=== PATIENT | male | born 1950 | race Caucasian/White ===

== ENCOUNTER → 2017-11-21 | Outpatient (CLI) | payer MEDICARE ==
[~2017-11-21] MED LIST: ACET-461 PO; ASP81CT PO; ASPI81TA45 PO; CHOL200035 PO; GABA-488 PO; INSU100I23 SQ; LISI5TAB14 PO; METO25TA6 PO; NAPR220T76 PO; NITR0.4T SL; PRAV40TA PO
== END ==
LOC: LABNPT 19:00
PROVIDERS: ATTEND Nurse Practitioner Family
DX: E11.00 Type 2 diabetes mellitus with hyperosmolarity without nonketotic hyperglycemic-hyperosmolar coma (NKHHC) (principal)
CPT/HCPCS: 83036

== ENCOUNTER → 2018-05-14 | Outpatient (CLI) | payer MEDICARE ==
[~2018-05-14] MED LIST changes: +ACET-168 PO; +ASPI-983 PO; +CHOL20003 PO; +CLOP75TA28 PO; +INSU100I14 SC; +LISI-556 PO; +METO-333 PO; +NAPR-1033 PO; +PRAV40TA2 PO
== END ==
LOC: WOUNDCARE 09:38
PROVIDERS: ATTEND Nurse Practitioner
DX: E11.621 Type 2 diabetes mellitus with foot ulcer (principal); I25.10 Atherosclerotic heart disease of native coronary artery without angina pectoris; L97.529 Non-pressure chronic ulcer of other part of left foot with unspecified severity; L97.519 Non-pressure chronic ulcer of other part of right foot with unspecified severity; I70.262 Atherosclerosis of native arteries of extremities with gangrene, left leg
CPT/HCPCS: 99213

== ENCOUNTER → 2018-05-21 | Outpatient (CLI) | payer MEDICARE | LOC: WOUNDCARE 10:59 | PROVIDERS: ATTEND Nurse Practitioner | DX: E11.621 Type 2 diabetes mellitus with foot ulcer (principal); I70.262 Atherosclerosis of native arteries of extremities with gangrene, left leg; I25.10 Atherosclerotic heart disease of native coronary artery without angina pectoris; L97.529 Non-pressure chronic ulcer of other part of left foot with unspecified severity; L97.519 Non-pressure chronic ulcer of other part of right foot with unspecified severity; T87.44 Infection of amputation stump, left lower extremity | CPT/HCPCS: 99213 ==

== ENCOUNTER → 2018-05-27 | Outpatient (CLI) | payer MEDICARE | LOC: WOUNDCARE 12:25 | PROVIDERS: ATTEND Surgery | DX: E11.621 Type 2 diabetes mellitus with foot ulcer (principal); I70.245 Atherosclerosis of native arteries of left leg with ulceration of other part of foot; L97.522 Non-pressure chronic ulcer of other part of left foot with fat layer exposed; I70.235 Atherosclerosis of native arteries of right leg with ulceration of other part of foot; L97.512 Non-pressure chronic ulcer of other part of right foot with fat layer exposed; T65.222S Toxic effect of tobacco cigarettes, intentional self-harm, sequela | CPT/HCPCS: 99213 ==

== ENCOUNTER → 2018-06-03 | Outpatient (CLI) | payer MEDICARE | LOC: WOUNDCARE 10:25 | PROVIDERS: ATTEND Surgery | DX: E11.621 Type 2 diabetes mellitus with foot ulcer (principal); I70.245 Atherosclerosis of native arteries of left leg with ulceration of other part of foot; L97.522 Non-pressure chronic ulcer of other part of left foot with fat layer exposed; I70.235 Atherosclerosis of native arteries of right leg with ulceration of other part of foot; L97.512 Non-pressure chronic ulcer of other part of right foot with fat layer exposed; T65.222S Toxic effect of tobacco cigarettes, intentional self-harm, sequela | CPT/HCPCS: 99213 ==

== ENCOUNTER → 2018-06-10 | Outpatient (CLI) | payer MEDICARE | LOC: WOUNDCARE 12:34 | PROVIDERS: ATTEND Surgery | DX: E11.621 Type 2 diabetes mellitus with foot ulcer (principal); I70.235 Atherosclerosis of native arteries of right leg with ulceration of other part of foot; L97.512 Non-pressure chronic ulcer of other part of right foot with fat layer exposed; I70.245 Atherosclerosis of native arteries of left leg with ulceration of other part of foot; L97.522 Non-pressure chronic ulcer of other part of left foot with fat layer exposed; T65.222S Toxic effect of tobacco cigarettes, intentional self-harm, sequela | CPT/HCPCS: 99212 ==

== ENCOUNTER 2018-06-25 08:28 | Inpatient (IN) | payer MEDICARE ==
[~2018-06-25] VITALS: Ht 172.7 cm; Wt 61.7 kg
[2018-06-25] MEDS ORDERED: INSU100V SQ (12:03)
[2018-06-25] MEDS ORDERED: ENOX40DI13 SQ (12:03)
[2018-06-25] MEDS ORDERED: ONDN4T PO (12:03)
[2018-06-25] MEDS ORDERED: NAPR-1033 PO (12:03)
[2018-06-25] MEDS ORDERED: HYDR-3812 PO (12:03)
[2018-06-25] MEDS ORDERED: ACET-2429 PO (12:03)
--- NOTE | 2018-06-25 12:07 | NUR ---
UPDATED MED REC TO THE LIST OF MEDICATIONS ORDERED AT DISCHARGE FROM [facility] AT THIS TIME. Addendum: 06/26/18 at 1406 by YUSEF JONES [facility] REVERTED THE MED REC BACK TO THE HOME MEDICATION LIST REPORTED AT THE PATIENTS ADMISSION IN APRIL TO [facility]. THIS INFORMATION SEEMS TO BE CURRENT WITH WHAT THE [facility] MED [facility] IS SHOWING AT THIS VISIT WELL. NOTE AT THE APRIL ADMISSION THE PATIENT WAS TAKING SOME OF HIS MEDICATION DIFFERENTLY THAN THE PRESCRIPTIONS WERE FILLED. HIS GABAPENTIN WAS LAST FILLED FOR 3 CAPSULES BID HOWEVER HE STATES IT WAS INCREASED TO 3 CAPS TID. HIS METOPROLOL TARTRATE 25MG WAS FILLED BID HOWEVER HE REPORTED ONLY TAKING IT ONCE DAILY AT HS. THE FOLLOWING CHANGES WERE MADE WHEN THE PATIENT DISCHARGED FROM [facility] TO [facility] THAT ARE NOT CURRENTLY REFLECTED ON THE HOME MED REC: START TAKING: TYLENOL 650MG Q6H PRN (CHANGED FROM 1000MG Q6H PRN) LOVENOX 40MG DAILY HYDROCODONE 5-325MG 2 Q4H PRN HUMALOG AC (WAS TAKING NOVOLOG 4 UNITS BID PREVIOUSLY) METOPROLOL 25MG 1/2 TAB BID (WAS TAKING 25 HS PREVIOUSLY) ZOFRAN 4MG Q4H PRN LISINOPRIL 5MG WAS NOT ADDRESSED ON THE DISCHARGE FROM [facility]. ALEVE WAS CONTINUED AT DISCHARGE FROM [facility] HOWEVER NOT REPORTED UPON THE ADMISSION IN APRIL AT [facility].
--- NOTE | 2018-06-25 14:21 | NUR ---
REJI VITALE admitted to room 222, with an admitting diagnosis of BILATERAL AKA, on 06/25/18 from [facility] via PRIVATE VEHICLE, accompanied by FAMILY. REJI VITALE introduced to surroundings, call light, bed controls, phone, TV, temperature control, lights, meal times, smoking policy, visitor policy, side rail policy, bathrooms and showers. Patient Rights given to patient in the handbook. ERJI VITALE verbalizes understanding that [facility] is not responsible for the loss or damage to any personal effects or valuables that are kept in the patient's possession during their hospitalization. The following Patient Care Plans were discussed with the PATIENT: Discharge Planning, PAIN, HIGH RISK: POST OP COMPLICATIONS, IMPAIRED MOBILITY, HIGH RISK: IMPAIRED SKIN INTEGRITY, HIGH RISK: INJURY, and KNOWLEDGE DEFICIT. REJI VITALE verbalizes understanding of Interdisciplinary Patient Education. Patient received Patient Rights Booklet, which includes Privacy Act Statement and Data Collection Information Summary.
--- NOTE | 2018-06-25 14:22 | PM&R H&P / Post Admit Assess ---
History of Present Illness HPI/Chief Complaint CC: Bilateral hgdif-[id number] amputations 06/18/18 Dr Alvarado [facility] HPI: This is a 68-year-old white male clinic patient of Dr. Lyn and Dr. Sykes who presents to the inpatient rehab facility after uncomplicated above the knee amputations by Dr. Alvarado at [facility] on 06/18/18. Multiple attempts with vascular surgery and other modalities failed the severe peripheral vascular disease that had been progressive and unable to be salvaged. Prior to admission he was crawling around at home because of his legs with simply not work. He did have a delirium during the hospital course which was managed conservatively and still has subtle confusion. There is probably a component of vascular dementia involved here among other issues. His daughter arrive with him with the discharge packet for [facility].s at this current time he is ready for a pain pill and rest since he is just arrived from a long hospital course at [facility] in [place]. I reviewed all discharge medications and lab evaluations and have reconciled all meds to continue. Source: patient, family, RN/MD, old records Exam Limitations: other (patient subtle delirium) Date Seen 06/25/18 Time Seen by a Provider: 14:10 Attending Physician Gail Lima Floyd R MD Referring Physician Date of Admission Home Medications & Allergies Home Medications Reviewed patient Home Medication Reconciliation performed by pharmacy medication reconciliations batch room technician and/or nursing. Patients Allergies have been reviewed. Allergies Allergies Coded Allergies No Known Drug Allergies (Pfebxeyzcl17/28/13) Past Ifpttqr-Zxllek-Jwlizy Hx Past Med/Social Hx: Reviewed Nursing Past Med/Soc Hx, Reviewed and Corrections made Patient Social History Marrital Status: single Employed/Student: retired Smoking Status: Former Smoker Recent Hopitalizations: No Seasonal Allergies Seasonal Allergies: No Past Medical History Surgeries: CABG, Orthopedic Respiratory: COPD Currently Using CPAP: No Currently Using BIPAP: No Cardiac: Chronic Edema/Swelling, Coronary Artery Disease, High Cholesterol, Hypertension Neurological: Dementia Musculoskeletal: Arthritis Endocrine: Diabetes, Non-Insulin dep Psychosocial: Depression History of Blood Disorders: No Adverse Reaction to Blood Sharpe: No Family History Cancer 03 FATHER, Onset:60 years & older 03 MOTHER, Onset:60 years & older Prostate cancer 03 FATHER, Onset:60 years & older No Family History of: Abdominal aortic aneurysm Sam's disease Alcoholism Aphasia Cancer of colon Cataract Chest pain Congenital heart disease Congestive heart failure Cystic fibrosis Dementia Dysphagia Family history: Allergy Family history: Alzheimer's disease Family history: Arthritis Family history: Asthma Family history: Breast disease Family history: Cardiovascular disease Family history: Coronary thrombosis Family history: Diabetes mellitus Family history: Gastrointestinal disease Family history: Glaucoma Family history: Hypertension Family history: Osteoporosis Family history: Thyroid disorder Headache Hearing loss Heart disease Hereditary disease History of - anemia History of - disorder History of - respiratory disease History of drug abuse Human immunodeficiency virus (HIV) seropositivity Hypercholesterolemia Infertile Kidney disease Malignant neoplasm of lung Myocardial infarction Parkinson's disease Psychotic disorder Seizure disorder Stroke Tuberculosis Visual impairment Review of Systems Constitutional: see HPI, weakness EENTM: no symptoms reported Respiratory: dyspnea on exertion Cardiovascular: no symptoms reported Gastrointestinal: no symptoms reported Genitourinary: no symptoms reported Musculoskeletal: joint pain, muscle stiffness Skin: see HPI Psychiatric/Neurological: Other (confusion) All Other Systems Reviewed Negative Unless Noted: Yes Physical Exam Exam Vital Signs Vital Signs Date Time Temp Pulse Resp B/P (MAP) Pulse Ox O2 Delivery O2 Flow Rate FiO2 06/25/18 18:04 97.9 87 18 105/61 (76) 95 Room Air Capillary Refill : General Appearance: WD/WN, Chronically ill, Mild Distress HEENT: PERRL/EOMI, Normal ENT Inspection, Pharynx Normal, Moist Mucous Membranes Neck: Full Range of Motion, Normal Inspection, Non Tender, Supple Respiratory: Chest Non Tender, Lungs Clear, Normal Breath Sounds, No Accessory Muscle Use, No Respiratory Distress, Decreased Breath Sounds Cardiovascular: Regular Rate, Rhythm, No Edema, No Gallop, No JVD, No Murmur Gastrointestinal: Normal Bowel Sounds, No Organomegaly, No Pulsatile Mass, Non Tender, Soft Back: Normal Inspection, No CVA Tenderness, No Vertebral Tenderness Extremity: Normal Capillary Refill, Normal Inspection, Normal Range of Motion, Non Tender, No Calf Tenderness, No Pedal Edema, Other (bilateral AKA ) Neurologic/Psychiatric: Alert, Oriented x3, No Motor/Sensory Deficits, Normal Mood/Affect Skin: Normal Color, Warm/Dry Lymphatic: No Adenopathy Results Results/Procedures Labs Patient resulted labs reviewed. Assessment/Plan Assessment and Plan Assess & Plan/Chief Complaint Assessment: bilateral AKA Delirium CAD Hx of CABG HTN HLP COPD Plan: Check labs in am IS Wound care for decubitus ulcers sacrum Dr Sykes consultation for CAD (1) S/P AKA (above knee amputation) bilateral (2) CAD (coronary artery disease) (3) Hx of CABG (4) COPD (chronic obstructive pulmonary disease) (5) Delirium (6) Dementia (7) Anemia (8) Gangrene due to peripheral vascular disease Post Admission Physician Asses Date seen by provider: Jun 25, 2018 Time seen by provider: 14:10 Admisison Dx: (1) S/P AKA (above knee amputation) bilateral Status: Acute The preadmission screen agrees with the post admission assessment that the patient is a good candidate for inpatient rehabilitation. The patient will have a comprehensive program of inpatient rehabilitation with a goal of maximizing level of functional independence prior to discharge home with family. The patient will have PT/OT ninety minutes per day, each discipline, five days a week for gait, strengthening, conditioning, balance, ADLs, any patient/family/caregiver training as necessary. Speech therapy to do cognitive assessment and treat as indicated. Rehabilitation nursing to assist with bowel, bladder, skin, wound care, medication administration, pain management. Ship Keeper to assist with discharge planning, community reentry. SCD's for DVT prophylaxis. He appears to be well motivated to participate in three hours of therapy a day. He should be able to tolerate three hours of therapy a day from a medical standpoint. He should benefit from the three hours of therapy a day. He has a reasonable discharge plan, reasonable discharge rehabilitation goals and a supportive family. He has various comorbidities that need to be closely monitored with medications and treatments adjusted on a daily basis as needed. These include: Barriers to discharge for this patient who had been independent prior to this are for him to be modified independent to supervision for ADLs and mobility skills prior to discharge home with [family], so as to lessen the burden of the caregivers. Risks for this patient include: 1. Fall 2. Fracture 3. DVT 4. Pulmonary embolism 5. Wound infection 6. Skin breakdown 7. Contractures 8. Poorly controlled pain 9. Urinary retention 10. UTI 11. Respiratory infection 12. Aspiration Estimated Length of Stay: 10 days Prognosis: Rehab prognosis appears good for goal of discharge home with family modified independent to supervision for ADLs and mobility skills. General: Alert, Oriented X3 (subtle poor recall), Cooperative, No Acute Distress HEENT: Atraumatic, PERRLA Neck: Supple, No JVD, No Thyromegaly, +2 Carotid Pulse No Bruit, No LAD Lungs: Clear to Auscultation, Normal Air Movement Heart: Regular Rate, Normal S1, Normal S2, No Murmurs Abdomen: Normal Bowel Sounds, Soft, No Tenderness, No Hepatosplenomegaly, No Masses Skin: No Rashes, No Breakdown, No Significant Lesion, Other (AKA staple lines noted) Neuro: Cranial Nerves 3-12 NL Psych/Mental Status: Mental Status NL (suble confusion), Mood NL, Other ( subtle confusion noted) GAIL LIMA DO Jun 25, 2018 14:22
[2018-06-25] MEDS ORDERED: HYDROcodone/APAP 5 MG/325 MG (LORTAB) TAB ONE (14:25)
[2018-06-25] MEDS ORDERED: ACETAMINOPHEN 325 MG TABLET PO PRN (14:45)
[2018-06-25] MEDS ORDERED: ONDANSETRON 4 MG (ZOFRAN) ORAL DISSOLVE TAB PO PRN (14:45)
--- NOTE | 2018-06-25 14:45 | NUR ---
Dr. Simons notified of consult. Addendum: 06/25/18 at 1518 by JASBIR SIDDIQUI RN New order for Aquacel with AG, cover with gauze, and secured with tape to pressure ulcers on bilateral buttock. Dr. Simons will see patient tomorrow.
[2018-06-25 14:55] VITALS: BP 106/60
--- NOTE | 2018-06-25 15:00 | NUR ---
Phyllis Mills, [facility] Staff, called Dr. Robbin Alvarado's office RE: bathing instructions. Ok for patient to shower??? Message left. Will await return call.
--- NOTE | 2018-06-25 15:31 | Physical Therapy Evaluation ---
PT Evaluation-General Medical Diagnosis Admission Date Jun 25, 2018 at 14:21 Medical Diagnosis: bilateral AKA Onset Date: Jun 17, 2018 Therapy Diagnosis Therapy Diagnosis: impaired mobility, strength, endurance, ROM Height/Weight Height (Feet): 5 Height (Inches): 8.00 Weight (Pounds): 142 Weight (Ounces): 1.0 Precautions Precautions/Isolations: Fall Prevention, Standard Precautions, Pressure Ulcer Referral Physician: Gail Soto DO Reason for Referral: Evaluation/Treatment Medical History Pertinent Medical History: CABG, CAD, COPD, HTN, HI, PVD Reviewed History: Yes Social History Home: Single Level Current Living Status: Alone Entry Into Home: Ramp Patient has a "makeshift" ramp that his family has been using to get him into and out of the home, they state they would like a real one built. Family state that patient has been sleeping on the floor for years, this PT recommended that he needs to alter his home to use a real bed and furniture, especially due to his pressure sores. Prior/Core FIM Prior Level of Function Therapy Code Descriptions/Definitions Functional Petroleum Measure: 0=Not Assessed/NA 4=Minimal Assistance 1=Total Assistance 5=Supervision or Setup 2=Maximal Assistance 6=Modified Petroleum 3=Moderate Assistance 7=Complete Petroleum Therapy Quality Codes: 6 Independent with activity with or without an assistive device 5 Patient requires set up or clean up by helper. Patient completes activity by themselves 4 Supervision or touching assist (CGA). Rumely provide cues , steadying assist 3 The helper provides less than half the effort to complete the activity 2 The helper provides more than half the effort to complete the activity 1 Dependent. The helper does all the effort to complete an activity 7 Patient refused to complete or attempt activity 9 The patient did not perform the activity before the current illness or injury 88 Not attempted due to Medical conditions or safety concerns Functional Abilities and Goals: Independent: Patient completed the activities by him/herself, with or without an assistive device, with no assistance from a helper. Needed Some Help: Patient needed partial assistance from another person to complete activities. Dependent: A helper completed the activities for the patient. Unknown: Not Applicable: Bed Mobility: 6 Transfers (B,C,W/C) (FIM): 6 Wheelchair Mobility: 6 Indoor Mobility (Ambulation): Not Applicalbe Prior Devices Use: Manual wheelchair PT Evaluation-Current Subjective Patient in bed pre tx, agrees reluctantly to PT, has 8/10 pain in both residual limbs and pressure sores. Pt/Family Goals to be independent at home Objective Patient Orientation: Person, Place ROM/Strength ROM Lower Extremities Unable to test in LE due to pain. Patient's residual limbs are strait up in the air when he is supine (90 degrees of hip flexion bilaterally). He cannot fully extend at the hip on either side. Strenght Lower Extremities NT due to pain. Neuromuscular (Tone, Coordination, Reflexes) NT Sensory Vision: Functional Hearing: Functional Sensation Lower Extremities Patient has no complaints of numbness on either residual limb. Transfers Therapy Code Descriptions/Definitions Functional Petroleum Measure: 0=Not Assessed/NA 4=Minimal Assistance 1=Total Assistance 5=Supervision or Setup 2=Maximal Assistance 6=Modified Petroleum 3=Moderate Assistance 7=Complete Petroleum Therapy Quality Codes: 6 Independent with activity with or without an assistive device 5 Patient requires set up or clean up by helper. Patient completes activity by themselves 4 Supervision or touching assist (CGA). Rumely provide cues , steadying assist 3 The helper provides less than half the effort to complete the activity 2 The helper provides more than half the effort to complete the activity 1 Dependent. The helper does all the effort to complete an activity 7 Patient refused to complete or attempt activity 9 The patient did not perform the activity before the current illness or injury 88 Not attempted due to Medical conditions or safety concerns Transfers (B, C, W/C) (FIM): 1 Scootin Rollin Roll Left to Right (QC): 4 Supine to/from Sit: 4 bed t/f WC(FIM only if WC use): 1 Sit to Lying (QC): 4 Lying to Sitting/Side of Bed(Q: 4 Chair/Zwd-ol-Huggo Xfer(QC): 1 Car Transfer (QC): 1 Patient was able to perform bed mobility and supine <-> sit with CGA. He could not perform a sliding board transfer or car transfer at this time due to pain from pressure sores. Gait Does the Patient Walk?: No and Walking Goal NOT indicated Wheelchair Training Does the Pt Use a Wheelchair?: Yes Wheelchair (FIM): 1 Type of Wheelchair: Manual Stairs If not tested on admit;explain non-ambulatory Balance Sitting Static: Normal Sitting Dynamic: Fair Treatment Attempted have patient perform exercise to extend hips bilaterally to bring residual limbs down to the bed. He tried a couple of times and then refused to continue. Assessment/Needs Patient has impaired mobility, strength, endurance, ROM, post bilateral AKA. He also has pressure sores on his bottom. He will most likely have to use a nancy lift for now for transfers. Patient has poor motivation. A power chair would be beneficial. Rehab Potential: Guarded PT Short Term Goals Short Term Goals Time Frame: Jul 02, 2018 Transfers (B,C,W/C) (FIM): 4 Wheelchair (FIM): 4 Wheelchair Distance: 150' Wheelchair Level of Assist: 4 PT Group Home Goals Process Machine Operator Goals PT Process Machine Operator Goals Time Frame: Jul 16, 2018 Transfers (B,C,W/C) (FIM): 5 Sit to Lying (QC): 6 Lying-Sitting on Side/Bed(QC): 6 Rollin Roll Left to Right (QC): 6 Chair/Uhx-td-Pkawq Xfer(QC): 4 Car Transfer (QC): 4 Wheelchair (FIM): 6 Distance: 200' Wheelchair Level of Assist: 6 Wheel 50 feet with 2 turns (QC: 6 PT Plan Problem List Problem List: Activity Tolerance, Functional Strength, Safety, Balance, Gait, Transfer, Bed Mobility, ROM Treatment/Plan Treatment Plan: Continue Plan of Care Treatment Plan: Bed Mobility, Concurrent Therapy, Education, Functional Activity Dina, Functional Strength, Group Therapy, Safety, Therapeutic Exercise , Transfers Treatment Duration: Jul 16, 2018 Frequency: At least 5 of 7 days/Wk (IRF) Estimated Hrs Per Day: 1.5 hours per day Patient and/or Family Agrees t: Yes Safety Risks/Education Patient Education: Transfer Techniques, Reviewed Precautions, Correct Positioning, W/C Management, Disease Process, Safety Issues Teaching Recipient: Patient Teaching Methods: Demonstration, Discussion Response to Teaching: Reinforcement Needed Discharge Recommendations Plan Patient will perform bed mobility and transfer training, balance and endurance training, functional strengthening, and education to improve functional mobility and independence at home. Therapy D/C Recommendations: Home w/ Family Support, Snf (TCU/NH) Time/GCodes Time In: 1455 Time Out: 1530 Total Billed Treatment Time: 35 Total Billed Treatment 1 visit EVM 35' AMAURY GONZALES PT Jun 25, 2018 15:31
--- NOTE | 2018-06-25 15:44 | Occupational Therapy Eval ---
OT Evaluation-General/PLF Medical Diagnosis Admission Date Jun 25, 2018 at 14:21 Medical Diagnosis: bilateral AKA Onset Date: Jun 17, 2018 Therapy Diagnosis Therapy Diagnosis: decreased self care skills Height/Weight Height (Feet): 5 Height (Inches): 8.00 Weight (Pounds): 142 Weight (Ounces): 1.0 Precautions Precautions/Isolations: Fall Prevention, Standard Precautions, Pressure Ulcer Referral Physician: Brittany Medical History Pertinent Medical History: CABG, CAD, COPD, HTN, AR, PVD Current History Pt s/p bilateral AKA Reviewed History: Yes Social History Home: Single Level Current Living Status: Children (daughter who works during the day) Entry Into Home: Stairs With Railing (Pt states he has a makeshift ramp, but is looking into getting a ramp installed) ADL-Prior Level of Function Therapy Code Descriptions/Definitions Functional [place] Measure: 0=Not Assessed/NA 4=Minimal Assistance 1=Total Assistance 5=Supervision or Setup 2=Maximal Assistance 6=Modified [place] 3=Moderate Assistance 7=Complete [place] Therapy Quality Codes: 6 Independent with activity with or without an assistive device 5 Patient requires set up or clean up by helper. Patient completes activity by themselves 4 Supervision or touching assist (CGA). [place] provide cues , steadying assist 3 The helper provides less than half the effort to complete the activity 2 The helper provides more than half the effort to complete the activity 1 Dependent. The helper does all the effort to complete an activity 7 Patient refused to complete or attempt activity 9 The patient did not perform the activity before the current illness or injury 88 Not attempted due to Medical conditions or safety concerns Functional Abilities and Goals: Independent: Patient completed the activities by him/herself, with or without an assistive device, with no assistance from a helper. Needed Some Help: Patient needed partial assistance from another person to complete activities. Dependent: A helper completed the activities for the patient. Unknown: Not Applicable: ADL PLOF Comments Pt states he has been sleeping on the floor and crawling around the house prior to surgery. Pt states he was able to get up onto toilet without assist. Self Care: Needed Some Help DME/Equipment: Grab Bars, Tub/Shower OT Current Status Subjective Pt arrived from outside hospital, states "Can I start therapy tomorrow?" Education provided regarding role of therapy and rehab process. Pt states understanding of education and reluctantly agrees to attempt therapy with encouragement. Pt reports 7/10 pain in LE. RN present and provides pain medication. Mental Status/Objective Patient Orientation: Person, Place Current Glasses/Contacts: No Hearing Aids: No Dentures/Partials: Yes Hand Dominance: Right Upper Extremity ROM Grossly WFL Upper Extremity Coordination Intact Upper Extremity Strength Grossly WFL. ADL-Treatment ADL-Current Pt states he completed therapy at hospital prior to coming to ARU. Pt reports fatigue and requests to transfer to bed. Pt states he has not been using slide board, but has been able to transfer without it by placing w/c next to bed and scooting using bilateral UE. Pt able to position w/c next to bed. Max assist required to transfer to EOB. Sit to supine with min assist for safety. Pt requires assist to scoot to HOB. Pt participated in UE assessment while sitting up in bed with HOB raised. Pt positioned in bed with needs met after session. Education OT Patient Education: Rehab process Teaching Recipient: Patient Teaching Methods: Discussion Response to Teaching: Verbalize Understanding, Reinforcement Needed OT Short Term Goals Short Term Goals Time Frame: Jul 02, 2018 Bathing(FIM): 4 Lower Body Dressing(FIM): 3 Toileting(FIM): 4 Additional Short Term Goals: 1-Demonstrate ADL Tasks, 2-Verbalize Understanding , 3-ImproveStrength/Dina 1=Demonstrate adherence to instructed precautions during ADL tasks. 2=Patient will verbalize/demonstrate understanding of assistive devices/ modifications for ADL. 3=Patient will improve strength/tolerance for activity to enable patient to perform ADL's. OT Jelly Maker Goals Halfway Goals Time Frame: Jul 16, 2018 Eating (FIM): 6 Eating (QC): 6 Groomin Oral Hygiene (QC): 6 Bathing(FIM): 5 Shower/Bathe Self (QC): 4 Upper Body Dressing(FIM): 6 Upper Body Dressing (QC): 6 Lower Body Dressing(FIM): 5 Lower Body Dressing (QC): 5 On/Off Footwear (QC): 88 Toileting(FIM): 5 Toileting Hygiene (QC): 5 Toilet/Commode Transfer(FIM): 5 Toilet/Commode Transfer (QC): 5 Additional Goals: 1-Demonstrate ADL Tasks, 2-Verbalize Understanding, 3- ImproveStrength/Dina 1=Demonstrate adherence to instructed precautions during ADL tasks. 2=Patient will verbalize/demonstrate understanding of assistive devices/ modifications for ADL. 3=Patient will improve strength/tolerance for activity to enable patient to perform ADL's. OT Education/Plan Problem List/Assessment Assessment: Decreased Activ Tolerance, Decreased UE Strength, Dependent Transfers, Impaired I ADL's, Impaired Self-Care Skills Pt admitted to ARU following bilateral AKA. Pt to benefit from skilled OT intervention for ADL training, transfers, strengthening, and safety education to increase level of independence and allow safe discharge plan. Discharge Recommendations Plan/Recommendations: Continue POC Treatment Plan/Plan of Care Treatment,Training & Education: Yes Patient would benefit from OT for education, treatment and training to promote independence in ADL's, mobility, safety and/or upper extremity function for ADL' s. Plan of Care: ADL Retraining, Functional Mobility, Group Exercise/Act as Ind, UE Funct Exercise/Act Treatment Duration: Jul 16, 2018 Frequency: Modified Program (IRF) Estimated Hrs Per Day: 1.5 hours per day Agreement: Yes Rehab Potential: Fair Time/GCodes Start Time: 14:15 Stop Time: 14:55 Total Time Billed (hr/min): 40 Billed Treatment Time 1 visit, EVM(30minutes), FA(10minutes) DRE MELÉNDEZ OT Jun 25, 2018 15:44
[2018-06-25] MEDS: inSUlin ASPART (NovoLOG) 1 UNIT/0.01 ML (CHARGE PER UNIT) SC SCH ×2 (16:35→21:37)
[2018-06-25] MEDS: meTOprolol TARTRATE 25 MG (LOPRESSOR) TABLET PO SCH (18:00)
[2018-06-25 18:04] VITALS: BP 105/61
[2018-06-25] MEDS ORDERED: FLU QUADRIvalent (5+ YOA) 2018-2019 (AFLURIA) 0.5 ML IM ONE (19:15)
--- NOTE | 2018-06-25 19:24 | NUR ---
Minimal amount of serosanguineous drainage noted from right AKA. In report, Dante REIS stated that this started today (06/25/18) and that Surgeon "is aware and is not worried about it". Dr. Soto also aware.
--- NOTE | 2018-06-25 19:33 | NUR ---
Never rec'd a call back from Dr. Alvarado's office. Will pass on in report to try again tomorrow.
--- NOTE | 2018-06-25 19:53 | NUR ---
Per Dr. Soto... change consult from Dr. Thakur to Dr. Sykes. Dr. Sykes already notified by Dr. Soto and he will see patient tomorrow.
[2018-06-25] MEDS: HYDROcodone/APAP 5 MG/325 MG (LORTAB) TAB PO PRN (20:39)
[2018-06-25] MEDS: CLOPIDOGREL 75 MG (PLAVIX) TABLET PO SCH (20:39)
[2018-06-25] MEDS: GABAPENTIN 300 MG (NEURONTIN) CAP PO SCH (20:39)
[2018-06-25] MEDS: GABAPENTIN 600 MG (NEURONTIN) TAB PO SCH (20:39)
[2018-06-25] MEDS: SIMvastatin 20 MG (ZOCOR) TAB PO SCH (20:39)
[2018-06-26] MEDS: HYDROcodone/APAP 5 MG/325 MG (LORTAB) TAB PO PRN ×4 (03:50→21:03)
[2018-06-26] MEDS: inSUlin ASPART (NovoLOG) 1 UNIT/0.01 ML (CHARGE PER UNIT) SC SCH ×4 (05:14→20:57)
[2018-06-26 06:00] VITALS: BP 104/55
[2018-06-26 06:05] LABS: BASOPHILS % (AUTO) 0 % (0-10); EOSINOPHILS # (AUTO) 0.3 10^3/uL (0.0-0.3); EOSINOPHILS % (AUTO) 3 % (0-10); HEMATOCRIT 27 % (40-54); HEMOGLOBIN 8.5 G/DL (13.3-17.7); LYMPHOCYTES # (AUTO) 2.2 X 10^3 (1.0-4.0); LYMPHOCYTES % (AUTO) 22 % (12-44); MEAN CORPUSCULAR HEMOGLOBIN 29 PG (25-34); MEAN CORPUSCULAR HGB CONC 31 G/DL (32-36); MEAN CORPUSCULAR VOLUME 94 FL (80-99); MEAN PLATELET VOLUME 10.7 FL (7.4-10.4); MONOCYTES % (AUTO) 10 % (0-12); NEUTROPHILS # (AUTO) 6.6 X 10^3 (1.8-7.8); NEUTROPHILS % (AUTO) 65 % (42-75); PLATELET COUNT 245 10^3/uL (130-400); RED CELL DISTRIBUTION WIDTH 15.4 % (10.0-14.5); WHITE BLOOD COUNT 10.2 10^3/uL (4.3-11.0)
[2018-06-26] MEDS: meTOprolol TARTRATE 25 MG (LOPRESSOR) TABLET PO SCH ×2 (06:21→18:22)
[2018-06-26 06:35] LABS: ALANINE AMINOTRANSFERASE 36 U/L (0-55); ALBUMIN 2.6 GM/DL (3.2-4.5); ALKALINE PHOSPHATASE 76 U/L (40-136); BILIRUBIN,TOTAL 0.3 MG/DL (0.1-1.0); BUN/CREATININE RATIO 15; CALCIUM 8.4 MG/DL (8.5-10.1); CARBON DIOXIDE 24 MMOL/L (21-32); CHLORIDE 105 MMOL/L (98-107); CREATININE SERUM 0.54 MG/DL (0.60-1.30); GFR ESTIMATED > 60; GLUCOSE 135 MG/DL (70-105); POTASSIUM 3.9 MMOL/L (3.6-5.0); SODIUM 135 MMOL/L (135-145); TOTAL PROTEIN 5.7 GM/DL (6.4-8.2)
--- NOTE | 2018-06-26 08:00 | NUR ---
MESSAGE LEFT WITH DR. BOWMAN'S NURSE RE: IF PATIENT CAN SHOWER.
[2018-06-26] MEDS: GABAPENTIN 300 MG (NEURONTIN) CAP PO SCH ×3 (09:03→20:58)
[2018-06-26] MEDS: GABAPENTIN 600 MG (NEURONTIN) TAB PO SCH ×3 (09:04→20:58)
[2018-06-26] MEDS: ASPIRIN E.C. 81 MG (ECOTRIN) TAB PO SCH (09:04)
[2018-06-26] MEDS: ENOXAPARIN 40 MG/0.4 ML (LOVENOX) SYR SC SCH (09:06)
--- NOTE | 2018-06-26 09:07 | PM&R Progress Note ---
Subjective HPI/CC On Admission Date Seen by Provider: Jun 26, 2018 Time Seen by Provider: 08:30 CC: Bilateral [id number] amputations 06/18/18 Dr Alvarado [facility] HPI: This is a 68-year-old white male clinic patient of Dr. Lyn and Dr. Sykes who presents to the inpatient rehab facility after uncomplicated above the knee amputations by Dr. Alvarado at [facility] on 06/18/18. Multiple attempts with vascular surgery and other modalities failed the severe peripheral vascular disease that had been progressive and unable to be salvaged. Prior to admission he was crawling around at home because of his legs with simply not work. He did have a delirium during the hospital course which was managed conservatively and still has subtle confusion. There is probably a component of vascular dementia involved here among other issues. His daughter arrive with him with the discharge packet for [facility].s at this current time he is ready for a pain pill and rest since he is just arrived from a long hospital course at [facility] in [place]. I reviewed all discharge medications and lab evaluations and have reconciled all meds to continue. Subjective/Events-last exam Pt doing very well today. Wound care is consulted for decubitus ulcers. Dr. Thakur has been consulted. Bowel movement this morning. Elmo are intact with subtle drainage but will monitor that closely. Will remove grzegorz this weekend if healing well. More cooperative today. Checking iron levels since Hgb is slightly low. Lortab provides good pain control. Dr. Simons will provide wound care. Power chair evaluation to see if we can get that for him. PT and OT reports dependent in transfers and we will inquire more about placement at discharge. Review of Systems General: Fatigue Objective Exam Vital Signs Vital Signs Date Time Temp Pulse Resp B/P (MAP) Pulse Ox O2 Delivery O2 Flow Rate FiO2 06/26/18 17:24 99.0 87 20 103/55 (71) 96 Room Air Capillary Refill : General Appearance: No Apparent Distress, WD/WN, Chronically ill, Mild Distress HEENT: PERRL/EOMI, Normal ENT Inspection, Pharynx Normal, Moist Mucous Membranes Neck: Full Range of Motion, Normal Inspection, Non Tender, Supple Respiratory: Chest Non Tender, Lungs Clear, Normal Breath Sounds, No Accessory Muscle Use, No Respiratory Distress, Decreased Breath Sounds Cardiovascular: Regular Rate, Rhythm, No Edema, No Gallop, No JVD, No Murmur Gastrointestinal: Normal Bowel Sounds, No Organomegaly, No Pulsatile Mass, Non Tender, Soft Back: Normal Inspection, No CVA Tenderness, No Vertebral Tenderness Extremity: Normal Capillary Refill, Normal Inspection, Normal Range of Motion, Non Tender, No Calf Tenderness, No Pedal Edema, Other (bilateral AKA ) Neurologic/Psychiatric: Alert, Oriented x3, No Motor/Sensory Deficits, Normal Mood/Affect Skin: Normal Color, Warm/Dry Lymphatic: No Adenopathy Results/Procedures Lab Laboratory Tests 06/26/18 05:45 Patient resulted labs reviewed. Assessment/Plan Assessment and Plan Assess & Plan/Chief Complaint Assessment: bilateral AKA Delirium CAD Hx of CABG HTN HLP COPD Plan: Check labs prn Await iron level IS Wound care for decubitus ulcers sacrum Dr Sykes consultation for CAD Staple removal this weekend if healing surgical sites (1) S/P AKA (above knee amputation) bilateral (2) Hx of CABG (3) Delirium (4) Dementia (5) CAD (coronary artery disease) (6) Anemia (7) COPD (chronic obstructive pulmonary disease) Clinical Quality Measures DVT/VTE Risk/Contraindication: Risk Factor Score Per Nursin RFS Level Per Nursing on Admit: 4+=Very High KARISSA LIMA DO Jun 26, 2018 09:07
--- NOTE | 2018-06-26 10:20 | Occupational Ther Daily Note ---
OT Current Status-Daily Note Subjective Pt alert, lying in bed. Pt agrees to therapy. Pt c/o pain in buttocks wound area and hip flexors. Mental Status/Objective Patient Orientation: Person, Place, Time, Situation Therapy Code Descriptions/Definitions Functional [place] Measure: 0=Not Assessed/NA 4=Minimal Assistance 1=Total Assistance 5=Supervision or Setup 2=Maximal Assistance 6=Modified [place] 3=Moderate Assistance 7=Complete [place] ADL-Treatment Co-treat with PT for skilled instruction and care due decreased activity tolerance, mobility and increased pain. PT worked on bed mobility, LE and core strengthening. OT worked on ADLs, and UE strengthening. When pt moved increased his pain. Pt anxious about what he is to do in therapy. Pt had difficulty following directions with exercises. Increased time to complete tasks due to pain and decreased mobility. MHP to L hip flexor to increase ROM and decrease pain. After therapy, pt lying in bed with call light/phone in reach. All needs met in room. Therapy Code Descriptions/Definitions Functional [place] Measure: 0=Not Assessed/NA 4=Minimal Assistance 1=Total Assistance 5=Supervision or Setup 2=Maximal Assistance 6=Modified [place] 3=Moderate Assistance 7=Complete [place] Therapy Quality Codes: 6 Independent with activity with or without an assistive device 5 Patient requires set up or clean up by helper. Patient completes activity by themselves 4 Supervision or touching assist (CGA). [place] provide cues , steadying assist 3 The helper provides less than half the effort to complete the activity 2 The helper provides more than half the effort to complete the activity 1 Dependent. The helper does all the effort to complete an activity 7 Patient refused to complete or attempt activity 9 The patient did not perform the activity before the current illness or injury 88 Not attempted due to Medical conditions or safety concerns Bathing (FIM): 4 (After set up for bed bath, pt able to reach all areas except buttocks. Pt has wound on coccyx area causing pain and requires extra care with area.) Bathing Location: L Arm, R Arm, L Upper Leg, R Upper Leg, Chest, Abdomen, Perineal Area Shower/Bathe Self (QC): 3 Upper Body (FIM): 5 (After set up, pt able to don/doff clothing.) Upper Body Dressing (QC): 5 Lower Body Dressing (FIM): 2 (Due to increased pain with movement, pt requires max A to complete) Lower Body Dressing (QC): 2 OT Short Term Goals Short Term Goals Time Frame: Jul 02, 2018 Bathing(FIM): 4 Lower Body Dressing(FIM): 3 Toileting(FIM): 4 Transfers (B,C,W/C) (FIM): 4 Additional Short Term Goals: 1-Demonstrate ADL Tasks, 2-Verbalize Understanding , 3-ImproveStrength/Dina 1=Demonstrate adherence to instructed precautions during ADL tasks. 2=Patient will verbalize/demonstrate understanding of assistive devices/ modifications for ADL. 3=Patient will improve strength/tolerance for activity to enable patient to perform ADL's. OT Nursing Home Goals Nursing Home Goals Time Frame: Jul 16, 2018 Eating (FIM): 6 Eating (QC): 6 Groomin Oral Hygiene (QC): 6 Bathing(FIM): 5 Shower/Bathe Self (QC): 4 Upper Body Dressing(FIM): 6 Upper Body Dressing (QC): 6 Lower Body Dressing(FIM): 5 Lower Body Dressing (QC): 5 Toileting(FIM): 5 Toileting Hygiene (QC): 5 Toilet/Commode Transfer(FIM): 5 Toilet/Commode Transfer (QC): 5 Additional Goals: 1-Demonstrate ADL Tasks, 2-Verbalize Understanding, 3- ImproveStrength/Dina 1=Demonstrate adherence to instructed precautions during ADL tasks. 2=Patient will verbalize/demonstrate understanding of assistive devices/ modifications for ADL. 3=Patient will improve strength/tolerance for activity to enable patient to perform ADL's. OT Education/Plan Problem List/Assessment Pt admitted to ARU following bilateral AKA. Pt to benefit from skilled OT intervention for ADL training, transfers, strengthening, and safety education to increase level of independence and allow safe discharge plan. Discharge Recommendations Plan/Recommendations: Continue POC Treatment Plan/Plan of Care Patient would benefit from OT for education, treatment and training to promote independence in ADL's, mobility, safety and/or upper extremity function for ADL' s. Plan of Care: ADL Retraining, Functional Mobility, Group Exercise/Act as Ind, UE Funct Exercise/Act Treatment Duration: Jul 16, 2018 Frequency: Modified Program (IRF) Estimated Hrs Per Day: 1.5 hours per day Agreement: Yes Rehab Potential: Fair Time/GCodes Start Time: 09:00 Stop Time: 10:00 Total Time Billed (hr/min): 60 Billed Treatment Time 1 visit-ADL 4 (60 min) Co-treat with PT 60 min EMMA CASEY Jun 26, 2018 10:20
--- NOTE | 2018-06-26 10:40 | Consultation-Cardiology ---
HPI-Cardiology Cardiology Consultation Date of Consultation 06/26/18 Date of Admission Time Seen by Provider: 08:50 Indication: CAD, PVD HPI Patient is a 68 y/o male with history of CAD, PVD, CHF, HTN. Currently receiving therapy in IRF after undergoing bilat AKA last month secondary to severe PVD. Denies any pain in legs at this time. Denies chest pain, dyspnea, dizziness or lightheadedness. Currently no complaints at this time. 68 years old gentleman with history of coronary artery disease, peripheral arterial disease, hypertension, underwent bilateral AKA secondary to extensive inoperable peripheral arterial disease. Currently receiving physical therapy. Denied any chest pain or palpitation. No syncope or near syncopal episodes. No claudication, no fever or chills. I was called for cardiac vascular management Home Medications & Allergies Allergies: Coded Allergies: No Known Drug Allergies (Unverified , 04/19/13) Home Medication List Reviewed: Yes QNP-Mauyds-Bvqabi Hx Patient Social History Marital Status: single Employed/Student: retired Smoking Status: Former Smoker Recent Foreign Travel: No Recent Infectious Disease Expo: No Recent Hopitalizations: No Immunizations Up To Date Date of Pneumonia Vaccine: Apr 23, 2015 Past Medical History PVD, CAD, HTN, HLP, CHF Family Medical History Significant Family History: No Pertinent Family Hx Family History: Cancer 03 FATHER, Onset:60 years & older 03 MOTHER, Onset:60 years & older Prostate cancer 03 FATHER, Onset:60 years & older No Family History of: Abdominal aortic aneurysm Sam's disease Alcoholism Aphasia Cancer of colon Cataract Chest pain Congenital heart disease Congestive heart failure Cystic fibrosis Dementia Dysphagia Family history: Allergy Family history: Alzheimer's disease Family history: Arthritis Family history: Asthma Family history: Breast disease Family history: Cardiovascular disease Family history: Coronary thrombosis Family history: Diabetes mellitus Family history: Gastrointestinal disease Family history: Glaucoma Family history: Hypertension Family history: Osteoporosis Family history: Thyroid disorder Headache Hearing loss Heart disease Hereditary disease History of - anemia History of - disorder History of - respiratory disease History of drug abuse Human immunodeficiency virus (HIV) seropositivity Hypercholesterolemia Infertile Kidney disease Malignant neoplasm of lung Myocardial infarction Parkinson's disease Psychotic disorder Seizure disorder Stroke Tuberculosis Visual impairment Review of Systems Constitutional: No chills, No diaphoresis, No dizziness, No fever, No malaise EENTM: No ear pain, No blurred vision, No double vision, No epistaxis, No nose pain Respiratory: No cough, No dyspnea on exertion Cardiovascular: No chest pain, No edema, No palpitations Gastrointestinal: No abdominal pain, No constipation Genitourinary: No dysuria, No frequency, No hematuria Musculoskeletal: No back pain Skin: No change in color, No lesions, No rash Psychiatric/Neurological: Denies Headache, Denies Numbness Reviewed Test Results Reviewed Test Results Lab Laboratory Tests 06/26/18 05:13: Glucometer 141H 06/26/18 05:45: White Blood Count 10.2, Red Blood Count 2.92L, Hemoglobin 8.5L, Hematocrit 27L, Mean Corpuscular Volume 94, Mean Corpuscular Hemoglobin 29, Mean Corpuscular Hemoglobin Concent 31L, Red Cell Distribution Width 15.4H, Platelet Count 245, Mean Platelet Volume 10.7H, Neutrophils (%) (Auto) 65, Lymphocytes (%) (Auto) 22 , Monocytes (%) (Auto) 10, Eosinophils (%) (Auto) 3, Basophils (%) (Auto) 0, Neutrophils # (Auto) 6.6, Lymphocytes # (Auto) 2.2, Monocytes # (Auto) 1.0, Eosinophils # (Auto) 0.3, Basophils # (Auto) 0.0, Sodium Level 135, Potassium Level 3.9, Chloride Level 105, Carbon Dioxide Level 24, Anion Gap 6, Blood Urea Nitrogen 8, Creatinine 0.54L, Estimat Glomerular Filtration Rate > 60, BUN/ Creatinine Ratio 15, Glucose Level 135H, Calcium Level 8.4L, Corrected Calcium 9.5, Total Bilirubin 0.3, Aspartate Amino Transf (AST/SGOT) 38H, Alanine Aminotransferase (ALT/SGPT) 36, Alkaline Phosphatase 76, Total Protein 5.7L, Albumin 2.6L Physical Exam Vital Signs Vital Signs - First Documented 06/25/18 14:55 Temp 98.6 Pulse 99 Resp 18 B/P (MAP) 106/60 (75) Pulse Ox 94 O2 Delivery Room Air Capillary Refill : Height, Weight, BMI Height: 5'8.00" Weight: 142lbs. 1.0oz. 64.061977aq; 21.6 BMI Method:Stated General Appearance: No Apparent Distress, WD/WN HEENT: TMs Normal, Pharynx Normal Neck: Full Range of Motion, Normal Inspection, Non Tender, Supple Respiratory: Chest Non Tender, Lungs Clear, Normal Breath Sounds, No Accessory Muscle Use, No Respiratory Distress Cardiovascular: Regular Rate, Rhythm, No Gallop, No JVD, No Murmur Gastrointestinal: No Pulsatile Mass, Non Tender, Soft Rectal: Deferred Back: No CVA Tenderness Extremity: Other (bilat AKA, stable in place on stumps bilat. No erythema or drainage) A/P-Cardiology Admission Diagnosis PVD CAD CHF HTN Assessment/Plan Peripheral arterial disease, history of bilat foot gangrene.Multiple interventions in the past, had bypass surgery right femoropopliteal and also femorofemoral bypass in October [address] Hutchinson, severe peripheral arterial disease by [facility]. Underwent multiple angiogram, had aortic stent placed by Dr. Bobo, failed percutaneous intervention of the lower extremity to establish flow, had extensive gangrene. Appeared to be inoperable, readmitted to [facility] and underwent bilateral AKA. Postoperatively he was confused. Currently better, continue on current medications and monitor Coronary artery disease history of CABG done on 04/22/[address] Olmos using DEL ANGEL to LAD, VG to OM1, VG to Acute marginal branch and PDA of RCA, continue with medical therapy Congestive heart failure, chronic compensated left ventricular systolic dysfunction, ischemic cardiomyopathy, ejection fraction 45-50 percent, mild mitral regurgitation, estimated pulmonary artery pressure of 35 mmHg, ischemic cardiomyopathy, continue on current medication and monitor Hypertension, continue on current medications and continue to monitor blood pressure Hyperlipidemia, monitor lipids Diabetes mellitus,management per PCP Tobaccoism, educated on smoking cessation. Mild carotid artery stenosis last checkup was done in July 2014 Thank you for allowing us to participate in the management of Mr. Lane. This is Marlen Wooten PA-C, as a scribe for Dr. Thakur. This is Dr. Thakur, I have seen and evaluated the patient with Marlen, as I mentioned above he is a 68 years old gentleman with extensive cardiac vascular history, underwent bilateral AKA, failed multiple attempts for intervention of the lower extremity in [place], currently receiving physical therapy. On examination lungs were clear to auscultation bilaterally, heart is regular, S3 is present, systolic murmur is present. He is maintained on aspirin and Plavix. Continue on current medication, monitor blood pressure, monitor lipids. I agree with the current scribed note, I made few modifications using Italic Font Clinical Quality Measures DVT/VTE Risk/Contraindication: Risk Factor Score Per Nursin RFS Level Per Nursing on Admit: 4+=Very High MARLEN ESQUIVEL Jun 26, 2018 10:40 am HARLEY THAKUR MD Jun 26, 2018 1:43 pm
--- NOTE | 2018-06-26 10:43 | Physical Therapy Daily Note ---
PT Daily Note-Current Subjective Pt laying R sidelying upon arrival. Pt agrees to PT. Pain Numeric Pain Scale: 6 Location: Incisional Location Body Site: Thigh Pain Description: Stabbing, Burning, Sharp Mental Status Patient Orientation: Person, Place, Situation Transfers Therapy Code Descriptions/Definitions Functional [place] Measure: 0=Not Assessed/NA 4=Minimal Assistance 1=Total Assistance 5=Supervision or Setup 2=Maximal Assistance 6=Modified [place] 3=Moderate Assistance 7=Complete [place] Therapy Quality Codes: 6 Independent with activity with or without an assistive device 5 Patient requires set up or clean up by helper. Patient completes activity by themselves 4 Supervision or touching assist (CGA). [place] provide cues , steadying assist 3 The helper provides less than half the effort to complete the activity 2 The helper provides more than half the effort to complete the activity 1 Dependent. The helper does all the effort to complete an activity 7 Patient refused to complete or attempt activity 9 The patient did not perform the activity before the current illness or injury 88 Not attempted due to Medical conditions or safety concerns Rollin Roll Left to Right (QC): 4 Exercises Supine Ex: Rolling, Glut sets Treatments Co-treat with PT for skilled instruction and care due decreased activity tolerance, mobility and increased pain. PT worked on bed mobility, LE and core strengthening. OT worked on ADLs, and UE strengthening. When pt moved increased his pain. Pt anxious about what he is to do in therapy. MHP is used for pain relief, increase blood flow & weight to aid in stretching tight hip flexors. Pt resting at end of tx with all needs met. Assessment Current Status: Fair Progress Pt is limited by pain and contractures of B hips. PT Short Term Goals Short Term Goals Time Frame: Jul 02, 2018 Transfers (B,C,W/C) (FIM): 4 Wheelchair (FIM): 4 Wheelchair Distance: 150' Wheelchair Level of Assist: 4 PT Correction Goals Environmental Emergencies Planner Goals PT Correction Goals Time Frame: Jul 16, 2018 Transfers (B,C,W/C) (FIM): 5 Sit to Lying (QC): 6 Lying-Sitting on Side/Bed(QC): 6 Rollin Roll Left to Right (QC): 6 Chair/Jos-we-Vdysv Xfer(QC): 4 Car Transfer (QC): 4 Wheelchair (FIM): 6 Distance: 200' Wheelchair Level of Assist: 6 Wheel 50 feet with 2 turns (QC: 6 PT Plan Problem List Problem List: Activity Tolerance, Functional Strength, Safety, Balance, Transfer, Bed Mobility, ROM Treatment/Plan Treatment Plan: Continue Plan of Care Treatment Plan: Bed Mobility, Concurrent Therapy, Education, Functional Activity Dina, Functional Strength, Group Therapy, Safety, Therapeutic Exercise , Transfers Treatment Duration: Jul 16, 2018 Frequency: At least 5 of 7 days/Wk (IRF) Estimated Hrs Per Day: 1.5 hours per day Patient and/or Family Agrees t: Yes Safety Risks/Education Patient Education: Transfer Techniques, Correct Positioning, Safety Issues Teaching Recipient: Patient, Family Teaching Methods: Discussion Response to Teaching: Verbalize Understanding Time/GCodes Time In: 900 Time Out: 1000 Total Billed Treatment Time: 60 Total Billed Treatment 1, FA x4 (60m) Co-treat for 60m G Codes Necessary: LJ Ashford FUNDRAISING ASSISTANT Jun 26, 2018 10:43
--- NOTE | 2018-06-26 11:01 | ST Cognitive Linguistic Eval ---
Speech Evaluation-General Medical Diagnosis bilateral AKA Onset Date: Jun 17, 2018 Therapy Diagnosis Therapy Diagnosis: Cognitive-communication Precautions Precautions/Isolations: Standard Precautions Medical History Pertinent Medical History: CABG, CAD, COPD, HTN, [place], PVD Reviewed History: Yes Social History Current Living Status: Children (daughter who works during the day) Speech PLF-Current Status Prior Level of Function Patient was able to attend to most of his daily needs with support from his family. His in March 2018. Subjective Patient was pleasant and attentive during the evaluation process. Language Eval: Auditory Comprehends Simple Yes/No Ques: Functional Indent/Objects Multiple Weiner: Functional Ident/Pics in Multiple Weiner: Functional Follows 1-Step Commands: Functional Follows Complex Directions: Functional Follows General Conversations: Functional Language Eval: Verbal Language Completes Spontaneous Greeting: Functional Produces Auto, Serial Info: Functional Imitates Simple Words/Phrases: Functional Word Finding: Functional Requests Basic Needs: Functional States Basic Personal Info: Functional Objective Cognitive Domain Attention: WNL Memory: WNL Problem Solving: Functional Executive Functions: WNL Objective Formal/Standardized Tests Andi Cognitive Assessment MOCA Results Executive: 5/5, Namin/3, Memory: Immediate 3/3, Delayed without cues 3/3, Attention: 6/6, Orientation: 6/6 Oral Motor/Speech Production Within Functional Limits Impression Patient is a pleasant 68 year old man who was admitted to the ARU following a double AKA a week ago. The patient was evaluated at bed side with the MOCA with the results passed at 100%. The patient does not exhibit decreased cognitive function at this time. He is not recommended for skilled ST services at this time. Communication/Social Cognition Comprehension: 7 Expression: 7 Social Interaction: 7 Problem Solvin Memory: 7 Speech Patient Assess Expression of Ideas/Wants: Expression (4) Understanding Verbal Content: Understands (4) Brief Interview-Mental Status: Yes Repetition of Three Words: Three (3) Temporal Orientation: Year: Correct (3) Temporal Orientation: Month: Accurate within 5 days(2) Temporal Orientation: Day: Correct (1) Recall : Wear to say "Sock": Yes, no cue required (2) Recall : Color: Yes, no cue required (2) Recall : Bed: Yes, no cue required (2) Memory/Recall Ability: Current season, Location of own room, Staff names and faces, That he or she is in a hsp/hsp unit Speech-Plan Patient/Family Goals Patient/Family Goals: Patient plans to return home with family support post rehab. Treatment Plan Speech Therapy Treatment Plan: Discontinue ST Patient is not recommended for skilled ST at this time. Treatment Duration: Jun 26, 2018 Frequency: 1 time per week Estimated Hrs Per Day: .25 hour per day Rehab Potential: Fair Barriers to Learning: None identified. Pt/Family Agrees to Plan: Yes Safety Risks/Education Teaching Recipient: Patient Teaching Methods: Discussion Response to Teaching: Verbalize Understanding Education Topics Provided: Safety within his room. Time Speech Therapy Time In: 10:15 Speech Therapy Time Out: 10:30 Total Billed Time: 15 Billed Treatment Time 1, ZULEMA Villatoro Jun 26, 2018 11:01
[2018-06-26] MEDS ORDERED: PRAV40TA2 PO (12:43)
[2018-06-26] MEDS ORDERED: ASPI-983 PO (12:43)
[2018-06-26] MEDS ORDERED: INSU100I14 SC (12:43)
[2018-06-26] MEDS ORDERED: METO-333 PO (12:43)
[2018-06-26] MEDS ORDERED: ACET-2267 PO (12:43)
[2018-06-26] MEDS ORDERED: LISI-556 PO (12:43)
--- NOTE | 2018-06-26 14:00 | NUR ---
DR. CONTRERAS HERE TO SEE PATIENT. SACRAL ULCER CHANGED TO BORDERED FOAM.
--- NOTE | 2018-06-26 14:17 | NUR ---
SPORTS MARKETER met with patient to complete initial assessment. Patient was alert and oriented and agreeable to assessment. Patient resided with daughter and son-in-law in a one level home in [place]. The has two steps at the entrance and 4 steps at the entrance of the garage; however, family has reached out to local contractor to install ramp at garage entrance.. Patient admitted to ARU from [facility] with new bilateral AKAs. Prior to amputations, patient was contracted bilaterally at the knees; therefore, patient often crawled for means of mobility. Patient states he was able to care for himself, and believes he is appropriate to do so at this time. Patient possesses a standard wheelchair and bedside commode; however, family has arranged to pay privately for an electric wheelchair. Patient reports family as large support system, daughter and son-in-law that reside in the home have flexible schedules and are able to assist when needed. Patient identifies anup Clement as primary contact at [phone]. PCP identified as Dr. Florencio Lyn, wound care physician as Dr. Simons, surgeon for recent amputations as Dr. Alvarado at [place]. Patient has [employer] choice and utilizes [facility] for local pharmacy needs. SPORTS MARKETER reviewed typical rehab length of stay and weekly team conferences with patient, he verbalizes desire to return home as soon as possible. SPORTS MARKETER encouraged patient follow recommendations of therapists. SPORTS MARKETER reviewed team conference summary with patient. As patient just recently admitted, team has recommended patient be reevaluated at next team conference on 313. SPORTS MARKETER will follow for appropriate discharge needs.
--- NOTE | 2018-06-26 14:30 | Wound Care Assessment ---
Wound Care Assessment Date Seen by Provider: Jun 26, 2018 Time Seen by Provider: 12:50 Chief Complaint Sacral ulcer. HPI The patient is a 68 year old male, known to me from previous episode of outpatient care, now with a Stage 2 sacral pressure ulcer in a setting of decreased mobility following bilateral AKA for ASPVD. Dressings and off- loading ordered. Past Medical History: Admits Diabetes Type II, Admits Heart Disease, Admits Myocardial Infarction, Admits Peripheral Artery Disease Smoking Status: Former Smoker Other Social Hx No interval change. Review of Systems Pulmonary: No Dyspnea Cardiovascular: No: Chest Pain Exam Vital Signs Date Time Temp Pulse Resp B/P (MAP) Pulse Ox O2 Delivery O2 Flow Rate FiO2 06/26/18 09:00 Room Air 06/26/18 06:00 98.4 74 20 104/55 (71) 97 Capillary Refill : HEENT: normal ENT inspection Neck: normal inspection Respiratory: no respiratory distress Extremities: other (Bilateral AKA incisions, intact.) Skin: other (Sacral ulcer -- 4.5 x 7.0 x 0.2 cm, 25% slough, 75% regen., mod. s.s. drainage, butterfly distribution.) Results Laboratory Tests 06/25/18 16:05: Glucometer 138H 06/25/18 21:21: Glucometer 229H 06/26/18 05:13: Glucometer 141H 06/26/18 05:45: White Blood Count 10.2, Red Blood Count 2.92L, Hemoglobin 8.5L, Hematocrit 27L, Mean Corpuscular Volume 94, Mean Corpuscular Hemoglobin 29, Mean Corpuscular Hemoglobin Concent 31L, Red Cell Distribution Width 15.4H, Platelet Count 245, Mean Platelet Volume 10.7H, Neutrophils (%) (Auto) 65, Lymphocytes (%) (Auto) 22 , Monocytes (%) (Auto) 10, Eosinophils (%) (Auto) 3, Basophils (%) (Auto) 0, Neutrophils # (Auto) 6.6, Lymphocytes # (Auto) 2.2, Monocytes # (Auto) 1.0, Eosinophils # (Auto) 0.3, Basophils # (Auto) 0.0, Sodium Level 135, Potassium Level 3.9, Chloride Level 105, Carbon Dioxide Level 24, Anion Gap 6, Blood Urea Nitrogen 8, Creatinine 0.54L, Estimat Glomerular Filtration Rate > 60, BUN/ Creatinine Ratio 15, Glucose Level 135H, Calcium Level 8.4L, Corrected Calcium 9.5, Iron Level 25L, Total Bilirubin 0.3, Aspartate Amino Transf (AST/SGOT) 38H , Alanine Aminotransferase (ALT/SGPT) 36, Alkaline Phosphatase 76, Total Protein 5.7L, Albumin 2.6L 06/26/18 11:18: Glucometer 204H Assessment/Plan/Dx 1. Pressure ulcer, sacrum, Stage 2, with moisture component, present on admission. 2. S/P bilateral AKA, with decreased mobility. 3. Peripheral arterial disease, severe. 4. Diabetes mellitus, Type 2, with ulcer. 5. Coronary artery disease. Plan: Barrier cream and off-loading for superficial sacral pressure ulcer with moisture component. LARRY CONTRERAS MD Jun 26, 2018 14:30
--- NOTE | 2018-06-26 14:32 | Therapy Group Daily Note ---
Therapy Daily Group Note Patient Education Topic Home Safety, Other List Below (memory) Exercises UE Exercise Session Ratio (pt:therapist): 3:1 Goal of Session: Education on ARU Expectations, Home Safety Strategies, Memory Strategies, UE/LE Strengthing Goal Met for this Session: Yes Pt Benefit of Group: Contributions to Others, Increased Functional Strength, Improved Cognition, Recognition of Peers, Socialization Other/Notes Pt transported to OT group with recliner. Group consisted of introductions ( name, place living, worst food eaten), socialization, UE seated exercises, memory strategies, ARU expectations/description and safety at home. Pt actively listened to peers and appropriately introduced self. Pt contributed to conversations and asked appropriate questions throughout therapy. Pt demonstrated good UE ROM and strength with exercise. Pt able to give personal strategies for memory. Pt voiced understanding of ARU and was able to ask pertinent questions about all topics. After therapy, pt lying in bed with call light/phone in reach. All needs met in room. Start Time: 13:00 Stop Time: 14:10 Total Billed Treatment Time: 70 Total Billed Treatment 1-GRP EMMA CASEY Jun 26, 2018 14:32
--- NOTE | 2018-06-26 15:00 | NUR ---
HAVE NOT HEARD BACK FROM DR. BOWMAN SO CALLED AGAIN. ORDER RECEIVED THAT PATIENT CAN SHOWER. DR. BOWMAN'S NURSE ALSO ASKED ABOUT STUMP SHRINKERS AND SHE WILL GET BACK WITH US ABOUT IT.
[2018-06-26 17:24] VITALS: BP 103/55
--- NOTE | 2018-06-26 20:34 | Individualized Plan of Care ---
Individualized Plan of Care Rehab Nursing IPOC Order Admission Date Jun 25, 2018 at 14:21 Current Orders Orders Admission Order(Inpt,Obs,Sdc) (06/25/18 08:37) Vital Signs: Routine (Order) 08,16,00 (06/25/18 08:37) Manufacturing Planner-Inpt Rehab Con (06/25/18 08:37) Rehab Nursing Orders-Ipoc (06/25/18 08:37) Physical Therapy Rehab Orders (06/25/18 08:37) Occupational Therapy Rehab Ord (06/25/18 08:37) Speech Therapy Rehab Orders (06/25/18 08:37) Intake & Output 06,14,22 (06/25/18 08:37) Precautions (Aru) (06/25/18 08:37) Weekly Weight (Lbs) WEEK (06/25/18 08:37) Rehab-Intensity Of Therapy (06/25/18 08:37) Initiate Admission Nursing Pro .admission (06/25/18 08:37) Follow-Up Appointment (06/25/18 12:44) Nursing Communication (Order) (06/25/18 12:44) Aspirin Enteric Coated Tablet (Ecotrin T (06/26/18 09:00) Clopidogrel Tablet (Plavix Tablet) (06/25/18 21:00) Gabapentin Capsule/Tablet (Neurontin Cap (06/25/18 21:00) Metoprolol Tartrate (Ir) Tab (Lopressor (06/25/18 17:00) Acetaminophen Tablet/Caplet (Tylenol T (06/25/18 14:45) Enoxaparin Injection (Lovenox Injection) (06/26/18 09:00) Hydrocodone/Apap 5/325 Tablet (Lortab 5 (06/25/18 14:45) Naproxen Tablet (Naprosyn Tablet) (06/25/18 14:45) Ondansetron Oral Dissolve Tab (Zofran (06/25/18 14:45) Accucheck Achs ACHS (06/25/18 13:47) Insulin Aspart (Novolog) (Novolog (Charg (06/25/18 16:00) Cbc With Automated Diff (06/26/18 06:00) Comprehensive Metabolic Panel (06/26/18 06:00) Hemoglobin A1c (06/26/18 06:00) Admission Arrival Bed Request (06/25/18 14:12) Hydrocodone/Apap 5/325 Tablet (Lortab 5 (06/25/18 14:25) Gabapentin Capsule/Tablet (Neurontin Cap (06/25/18 21:00) Simvastatin Tablet (Zocor Tablet) (06/25/18 21:00) Ambulate 08,12,20 (06/25/18 14:52) Sequential Compression Device 08,20 (06/25/18 14:52) Dvt/Vte Risk - Notifiy Physici 08 (06/25/18 14:52) Consult Wound Care Physician (06/25/18 14:54) Cho 75g/M 0snack (21-2400 David) (06/25/18 Lunch) Influenza Quad (5+Yoa) (Afluria (06/25/18 19:15) Consult Physician (06/25/18 19:53) Iron Test (Fe) (06/26/18 09:07) Advanced Wound Care Dressing O BID (06/26/18 10:49) Patient Visit (06/26/18 ) Speech Sound Lang Comp (06/26/18 ) Patient Visit (06/26/18 ) Functional Activities, Ea 15 (06/26/18 ) Advanced Wound Care Dressing O DAILY PRN (06/26/18 14:30) Patient Visit (06/26/18 ) Therapeutic, Group (06/26/18 ) Nursing Communication (Order) (06/26/18 15:39) Physical Therapy Oder (06/26/18 15:59) Request Ot Additional Orders (06/26/18 15:59) Iron Sucrose Injection (Venofer Injectio (06/28/18 09:00) Rehab Nursing Orders: Ongoing Assess. of Cognitive Status, Ongoing Assess. of Function Status, Bladder Management, Bowel Management, Disease Management & Educaiton, Fall Prevention, Fluid/Electrolyte/Nutrition Mgmt, Infection Prevention, Medication Management & Education, Management of Risks & Complications, Management of Skin Intergrity, Nutrition Management, Pain Management, Patient/Family Support, Wound Management Intensity of Therapy to be met Patient to be seen: Min.3h per day/5 of 7d PT IPOC Problem List: Activity Tolerance, Functional Strength, Safety, Balance, Transfer, Bed Mobility, ROM Treatment Plan: Continue Plan of Care Bed Mobility, Concurrent Therapy, Education, Functional Activity Dina, Functional Strength, Group Therapy, Safety, Therapeutic Exercise, Transfers Treatment Duration: Jul 16, 2018 Frequency: At least 5 of 7 days/Wk (IRF) Estimated Hrs Per Day: 1.5 hours per day OT IPOC Problems: Decreased Activ Tolerance, Decreased UE Strength, Dependent Transfers , Impaired I ADL's, Impaired Self-Care Skills OT Treatment, Training and Edu: Yes OT Problems Pt admitted to ARU following bilateral AKA. Pt to benefit from skilled OT intervention for ADL training, transfers, strengthening, and safety education to increase level of independence and allow safe discharge plan. Plan of Care: ADL Retraining, Functional Mobility, Group Exercise/Act as Ind, UE Funct Exercise/Act Treatment Duration: Jul 16, 2018 Frequency: Modified Program (IRF) Estimated Hrs Per Day: 1.[address] IPOC Speech Therapy Treatment Plan: Discontinue ST Treatment Duration: Jun 26, 2018 Frequency: 1 time per week Estimated Hrs Per Day: .25 hour per day Manufacturing Planner/Case Mgmt Manufacturing Planner/Case Managemen: Discharge Planning Dietitian/Upholstered Goods Crafter Dietitian/Upholstered Goods Crafter to monitor nutritional status and make changes and/or recommendations as needed and work with speech pathology on dietary upgrades as the occur. Physician IPOC Medical Issues being managed closely and that require the 24 hour availability of a physician: Severe anemia and labile blood sugars with severe pain from bilateral AKA's will require close physician supervision Medical Issues: Falls Precautions, Fluid/Electrolyte/Nutrition Balance, Infection Protection, Pain Management, Wound Care Brief Synthesis of Preadmission Screen, Post-Admission Evaluation, and Therapy Evaluations: PT will focus on transfers to wheelchair OT will strengthen ADL's independently Medical Prognosis: Good Anticipated Length of Stay: 14 days KARISSA LIMA DO Jun 26, 2018 20:34
[2018-06-26] MEDS: CLOPIDOGREL 75 MG (PLAVIX) TABLET PO SCH (20:58)
[2018-06-26] MEDS: SIMvastatin 20 MG (ZOCOR) TAB PO SCH (20:58)
[2018-06-27] MEDS: HYDROcodone/APAP 5 MG/325 MG (LORTAB) TAB PO PRN ×5 (01:46→23:15)
[2018-06-27 06:00] VITALS: BP 93/56
[2018-06-27] MEDS: inSUlin ASPART (NovoLOG) 1 UNIT/0.01 ML (CHARGE PER UNIT) SC SCH ×4 (06:05→20:32)
[2018-06-27] MEDS: meTOprolol TARTRATE 25 MG (LOPRESSOR) TABLET PO SCH ×2 (07:00→18:12)
--- NOTE | 2018-06-27 07:19 | Cardiology Progress Note ---
Subjective Date Seen by Provider: Jun 27, 2018 Time Seen by Provider: 07:16 Subjective/Events-last exam patient is laying down in bed, feeling better. No new complaint. Denied any chest pain. Review of Systems General: No Chills, No Night Sweats, No Fatigue, No Malaise, No Appetite, No Other HEENT: No Head Aches, No Visual Changes, No Eye Pain, No Ear Pain, No Dysphasia , No Sinus Congestion, No Post Nasal Drip, No Sore Throat, No Other Pulmonary: No Dyspnea, No Cough, No Pleuritic Chest Pain, No Other Cardiovascular: No: Chest Pain, Palpitations, Orthopnea, Paroxysmal Noc. Dyspnea, Edema, Lt Headedness, Other Objective-Cardiology Exam Last Set of Vital Signs Vital Signs 06/27/18 06:00 Temp 97.9 Pulse 92 Resp 18 B/P (MAP) 93/56 (68) Pulse Ox 97 O2 Delivery Room Air Capillary Refill : I&O Intake and Output 06/27/18 00:00 Intake Total 2040 ml Output Total 1150 ml Balance 890 ml Intake Oral 2040 ml Output Urine Total 1150 ml # Voids 1 General: Alert, Oriented X3 (subtle poor recall), Cooperative, No Acute Distress HEENT: Atraumatic, PERRLA Neck: Supple, No JVD, No Thyromegaly, +2 Carotid Pulse No Bruit, No LAD Lungs: Clear to Auscultation, Normal Air Movement Heart: Regular Rate, Normal S1, Normal S2, No Murmurs Abdomen: Normal Bowel Sounds, Soft, No Tenderness, No Hepatosplenomegaly, No Masses Extremities: Other ( bilateral AKA) Skin: No Rashes, No Breakdown, No Significant Lesion, Other (AKA staple lines noted) Neuro: Cranial Nerves 3-12 NL Psych/Mental Status: Mental Status NL (suble confusion), Mood NL, Other ( subtle confusion noted) Results Lab Laboratory Tests Test 06/26/18 11:18 06/26/18 15:58 06/26/18 20:55 06/27/18 05:34 Range/Units Glucometer 204 H 196 H 254 H 139 H 70-110 MG/DL A/P-Cardiology Admission Diagnosis PVD CAD CHF HTN Assessment/Plan Peripheral arterial disease, history of bilat foot gangrene. Multiple interventions in the past, had bypass surgery right femoropopliteal and also femorofemoral bypass in October [address] Hutchinson. Underwent multiple angiogram, had aortic stent placed by Dr. Benitez, failed percutaneous intervention of the lower extremity to establish flow, had extensive gangrene. Appeared to be inoperable, readmitted to [facility] and underwent bilateral AKA. Postoperatively he was confused. Currently better, continue on current medications and monitor Coronary artery disease history of CABG done on 04/22/[address] Olmos using DEL ANGEL to LAD, VG to OM1, VG to Acute marginal branch and PDA of RCA, continue with medical therapy Congestive heart failure, chronic compensated left ventricular systolic dysfunction, ischemic cardiomyopathy, ejection fraction 45-50 percent, mild mitral regurgitation, estimated pulmonary artery pressure of 35 mmHg, ischemic cardiomyopathy, continue on current medication and monitor Hypertension, continue on current medications and continue to monitor blood pressure Hyperlipidemia, monitor lipids Diabetes mellitus,management per PCP Tobaccoism, educated on smoking cessation. Mild carotid artery stenosis last checkup was done in July 2014 Clinical Quality Measures DVT/VTE Risk/Contraindication: Risk Factor Score Per Nursin RFS Level Per Nursing on Admit: 4+=Very High HARLEY ORDOÑEZ MD Jun 27, 2018 07:19
--- NOTE | 2018-06-27 07:53 | PM&R Progress Note ---
Subjective HPI/CC On Admission Date Seen by Provider: Jun 27, 2018 Time Seen by Provider: 08:00 CC: Bilateral [id number] amputations 06/18/18 Dr Alvarado [facility] HPI: This is a 68-year-old white male clinic patient of Dr. Lyn and Dr. Sykes who presents to the inpatient rehab facility after uncomplicated above the knee amputations by Dr. Alvarado at [facility] on 06/18/18. Multiple attempts with vascular surgery and other modalities failed the severe peripheral vascular disease that had been progressive and unable to be salvaged. Prior to admission he was crawling around at home because of his legs with simply not work. He did have a delirium during the hospital course which was managed conservatively and still has subtle confusion. There is probably a component of vascular dementia involved here among other issues. His daughter arrive with him with the discharge packet for [facility].s at this current time he is ready for a pain pill and rest since he is just arrived from a long hospital course at [facility] in [place]. I reviewed all discharge medications and lab evaluations and have reconciled all meds to continue. Subjective/Events-last exam Dr. Thakur saw him today. Pt had difficulty sleeping last night but does not wish to be on any medication. Already had a bowel movement. Pain is controlled on Hydrocodone. Participating in all therapies. Power chair will be provided to see if he can manage that and that might be an option at discharge. Overall feels as if he is settling in well in inpatient rehab and appreciates all the help and expertise of the therapist. Review of Systems General: Fatigue Objective Exam Vital Signs Vital Signs Date Time Temp Pulse Resp B/P (MAP) Pulse Ox O2 Delivery O2 Flow Rate FiO2 06/27/18 18:00 98.0 96 18 107/57 (74) 97 Room Air Capillary Refill : General Appearance: No Apparent Distress, WD/WN, Chronically ill, Mild Distress HEENT: PERRL/EOMI, Normal ENT Inspection, Pharynx Normal, Moist Mucous Membranes Neck: Full Range of Motion, Normal Inspection, Non Tender, Supple Respiratory: Chest Non Tender, Lungs Clear, Normal Breath Sounds, No Accessory Muscle Use, No Respiratory Distress, Decreased Breath Sounds Cardiovascular: Regular Rate, Rhythm, No Edema, No Gallop, No JVD, No Murmur Gastrointestinal: Normal Bowel Sounds, No Organomegaly, No Pulsatile Mass, Non Tender, Soft Rectal: Deferred Back: Normal Inspection, No CVA Tenderness, No Vertebral Tenderness Extremity: Normal Capillary Refill, Normal Inspection, Normal Range of Motion, Non Tender, No Calf Tenderness, No Pedal Edema, Other (bilateral AKA ) Neurologic/Psychiatric: Alert, Oriented x3, No Motor/Sensory Deficits, Normal Mood/Affect Skin: Normal Color, Warm/Dry Lymphatic: No Adenopathy Results/Procedures Lab Patient resulted labs reviewed. Assessment/Plan Assessment and Plan Assess & Plan/Chief Complaint Assessment: bilateral AKA Delirium CAD Hx of CABG HTN HLP COPD Plan: Check labs prn Await iron level IS Wound care for decubitus ulcers sacrum Dr Thakur consultation for CAD Staple removal this weekend if healing surgical sites (1) S/P AKA (above knee amputation) bilateral (2) Hx of CABG (3) Delirium (4) Dementia (5) CAD (coronary artery disease) (6) Anemia (7) COPD (chronic obstructive pulmonary disease) Clinical Quality Measures DVT/VTE Risk/Contraindication: Risk Factor Score Per Nursin RFS Level Per Nursing on Admit: 4+=Very High KARISSA LIMA DO Jun 27, 2018 07:53
--- NOTE | 2018-06-27 08:39 | Occupational Ther Daily Note ---
OT Current Status-Daily Note Subjective Pt alert, sitting up in bed. Pt agrees to therapy. Pt c/o back pain and pain at coccyx, 08/30. Nrsg in room when pt rated. Mental Status/Objective Patient Orientation: Person, Place, Time, Situation Therapy Code Descriptions/Definitions Functional [place] Measure: 0=Not Assessed/NA 4=Minimal Assistance 1=Total Assistance 5=Supervision or Setup 2=Maximal Assistance 6=Modified [place] 3=Moderate Assistance 7=Complete [place] ADL-Treatment Therapy Code Descriptions/Definitions Functional [place] Measure: 0=Not Assessed/NA 4=Minimal Assistance 1=Total Assistance 5=Supervision or Setup 2=Maximal Assistance 6=Modified [place] 3=Moderate Assistance 7=Complete [place] Therapy Quality Codes: 6 Independent with activity with or without an assistive device 5 Patient requires set up or clean up by helper. Patient completes activity by themselves 4 Supervision or touching assist (CGA). [place] provide cues , steadying assist 3 The helper provides less than half the effort to complete the activity 2 The helper provides more than half the effort to complete the activity 1 Dependent. The helper does all the effort to complete an activity 7 Patient refused to complete or attempt activity 9 The patient did not perform the activity before the current illness or injury 88 Not attempted due to Medical conditions or safety concerns Eating (FIM): 6 (Pt able to complete own set up and use regular utensils.) Eating (QC): 6 Grooming (FIM): 5 (Due to increased pain from wound, pt completed grooming in bed. BELLA gathered supplies and pt completed.) Oral Hygiene (QC): 5 Bathing (FIM): 4 (Using rolling shower chair with cutout and hand held shower pt able to complete 90% of bathing/drying.) Bathing Location: L Arm, R Arm, L Upper Leg, R Upper Leg, L Lower Leg ( including foot) (AKA), R Lower Leg (including foot) (AKA), Chest, Abdomen, Perineal Area Shower/Bathe Self (QC): 3 Upper Body (FIM): 5 (After setup, pt completes by self.) Upper Body Dressing (QC): 5 Lower Body Dressing (FIM): 5 (Set up. Sitting in bed, pt able to don/doff by self.) Lower Body Dressing (QC): 5 On/Off Footwear (QC): 88 Toileting (FIM): 2 (Pt requires assistance to manipulate clothing and cleanse self.) Toileting Hygiene (QC): 2 Transfers (B, C, W/C) (FIM): 1 (Manuel lift due to wound on coccyx.) Toilet/Commode Transfer (FIM): 1 (Manuel lift due to wound on coccyx.) Toilet Transfer (QC): 1 Shower Transfer(FIM): 1 (Using rolling shower chair to transfer into shower.) Pt takes increased time to complete tasks due to increased pain and decreased activity tolerance. After therapy, pt sitting up in bed with call light/phone in reach. All needs met in room. OT Short Term Goals Short Term Goals Time Frame: Jul 02, 2018 Bathing(FIM): 4 Lower Body Dressing(FIM): 3 Toileting(FIM): 4 Transfers (B,C,W/C) (FIM): 4 Additional Short Term Goals: 1-Demonstrate ADL Tasks, 2-Verbalize Understanding , 3-ImproveStrength/Dina 1=Demonstrate adherence to instructed precautions during ADL tasks. 2=Patient will verbalize/demonstrate understanding of assistive devices/ modifications for ADL. 3=Patient will improve strength/tolerance for activity to enable patient to perform ADL's. OT Care Home Goals Care Home Goals Time Frame: Jul 16, 2018 Eating (FIM): 6 Eating (QC): 6 Groomin Oral Hygiene (QC): 6 Bathing(FIM): 5 Shower/Bathe Self (QC): 4 Upper Body Dressing(FIM): 6 Upper Body Dressing (QC): 6 Lower Body Dressing(FIM): 5 Lower Body Dressing (QC): 5 On/Off Footwear (QC): 88 Toileting(FIM): 5 Toileting Hygiene (QC): 5 Toilet/Commode Transfer(FIM): 5 Toilet/Commode Transfer (QC): 5 Additional Goals: 1-Demonstrate ADL Tasks, 2-Verbalize Understanding, 3- ImproveStrength/Dina 1=Demonstrate adherence to instructed precautions during ADL tasks. 2=Patient will verbalize/demonstrate understanding of assistive devices/ modifications for ADL. 3=Patient will improve strength/tolerance for activity to enable patient to perform ADL's. OT Education/Plan Problem List/Assessment Pt admitted to ARU following bilateral AKA. Pt to benefit from skilled OT intervention for ADL training, transfers, strengthening, and safety education to increase level of independence and allow safe discharge plan. Discharge Recommendations Plan/Recommendations: Continue POC Treatment Plan/Plan of Care Patient would benefit from OT for education, treatment and training to promote independence in ADL's, mobility, safety and/or upper extremity function for ADL' s. Plan of Care: ADL Retraining, Functional Mobility, Group Exercise/Act as Ind, UE Funct Exercise/Act Treatment Duration: Jul 16, 2018 Frequency: Modified Program (IRF) Estimated Hrs Per Day: 1.5 hours per day Agreement: Yes Rehab Potential: Fair Time/GCodes Start Time: 07:00 Stop Time: 08:30 Total Time Billed (hr/min): 90 Billed Treatment Time 1 visit-ADL 6 (90 min) EMMA CASEY Jun 27, 2018 08:39
[2018-06-27] MEDS: ASPIRIN E.C. 81 MG (ECOTRIN) TAB PO SCH (09:29)
[2018-06-27] MEDS: GABAPENTIN 300 MG (NEURONTIN) CAP PO SCH ×3 (09:29→20:25)
[2018-06-27] MEDS: GABAPENTIN 600 MG (NEURONTIN) TAB PO SCH ×3 (09:29→20:25)
[2018-06-27] MEDS: ENOXAPARIN 40 MG/0.4 ML (LOVENOX) SYR SC SCH (09:30)
--- NOTE | 2018-06-27 10:50 | NUR ---
Pastoral care visit.
--- NOTE | 2018-06-27 11:02 | Physical Therapy Daily Note ---
PT Daily Note-Current Subjective Patient in bed pre tx, agrees to PT, has 5/10 pain in his residual limbs and bottom. Appearance Patient in bed post tx with nurse call, phone, tray, all needs met. Mental Status Patient Orientation: Person, Place, Situation Transfers Therapy Code Descriptions/Definitions Functional [place] Measure: 0=Not Assessed/NA 4=Minimal Assistance 1=Total Assistance 5=Supervision or Setup 2=Maximal Assistance 6=Modified [place] 3=Moderate Assistance 7=Complete [place] Therapy Quality Codes: 6 Independent with activity with or without an assistive device 5 Patient requires set up or clean up by helper. Patient completes activity by themselves 4 Supervision or touching assist (CGA). [place] provide cues , steadying assist 3 The helper provides less than half the effort to complete the activity 2 The helper provides more than half the effort to complete the activity 1 Dependent. The helper does all the effort to complete an activity 7 Patient refused to complete or attempt activity 9 The patient did not perform the activity before the current illness or injury 88 Not attempted due to Medical conditions or safety concerns Transfers (B, C, W/C) (FIM): 1 Scootin Rollin Supine to/from Sit: 4 Bed to/from Chair: 1 Manuel lift for transfers. Patient was hoyered to power wheelchair for training , and then to therapy table for stretching, back to wheelchair and then back to bed. Wheelchair Training Does the Pt Use a Wheelchair?: Yes Wheelchair (FIM): 5 Wheelchair Level of Assist: 5 Type of Wheelchair: Motorized A training power chair was used with patient. It was adjusted to patient and a good gel cushion was used. Patient had training on how to use the control and how to perform pressure relief using the tilt. Patient practiced driving it and just needed SBA with occasional cues for safety. Chair has a seatbelt for safety. Exercises Supine hip extension bilaterally, sidelying hip abd x15 each side. Treatments transfers, wheelchair mobility, training, stretching, ex Assessment Current Status: Fair Progress Good progress with wheelchair mobility. Patient has bilateral hip flexion contractures and is very resistant to ROM/stretching. PT Short Term Goals Short Term Goals Time Frame: Jul 02, 2018 Transfers (B,C,W/C) (FIM): 4 Wheelchair (FIM): 4 Wheelchair Distance: 150' Wheelchair Level of Assist: 4 PT Shelter Goals Risk Specialist Goals PT Risk Specialist Goals Time Frame: Jul 16, 2018 Transfers (B,C,W/C) (FIM): 5 Sit to Lying (QC): 6 Lying-Sitting on Side/Bed(QC): 6 Rollin Roll Left to Right (QC): 6 Chair/Vzl-sm-Fctjm Xfer(QC): 4 Car Transfer (QC): 4 Wheelchair (FIM): 6 Distance: 200' Wheelchair Level of Assist: 6 Wheel 50 feet with 2 turns (QC: 6 PT Plan Problem List Problem List: Activity Tolerance, Functional Strength, Safety, Balance, Transfer, Bed Mobility, ROM Treatment/Plan Treatment Plan: Continue Plan of Care Treatment Plan: Bed Mobility, Concurrent Therapy, Education, Functional Activity Dina, Functional Strength, Group Therapy, Safety, Therapeutic Exercise , Transfers Treatment Duration: Jul 16, 2018 Frequency: At least 5 of 7 days/Wk (IRF) Estimated Hrs Per Day: 1.5 hours per day Patient and/or Family Agrees t: Yes Safety Risks/Education Patient Education: Transfer Techniques, Correct Positioning, W/C Management, Safety Issues Teaching Recipient: Patient Teaching Methods: Demonstration, Discussion Response to Teaching: Reinforcement Needed Time/GCodes Time In: 1000 Time Out: 1100 Total Billed Treatment Time: 60 Total Billed Treatment [address] [facility] 30' EX 15' FA 15' AMAURY GONZALES PT Jun 27, 2018 11:02
--- NOTE | 2018-06-27 14:01 | Occupational Ther Daily Note ---
OT Current Status-Daily Note Subjective Pt alert, sitting up in bed. Took over care from PT. Pt agrees to therapy. Mental Status/Objective Patient Orientation: Person, Place, Time, Situation Therapy Code Descriptions/Definitions Functional [place] Measure: 0=Not Assessed/NA 4=Minimal Assistance 1=Total Assistance 5=Supervision or Setup 2=Maximal Assistance 6=Modified [place] 3=Moderate Assistance 7=Complete [place] ADL-Treatment Therapy Code Descriptions/Definitions Functional [place] Measure: 0=Not Assessed/NA 4=Minimal Assistance 1=Total Assistance 5=Supervision or Setup 2=Maximal Assistance 6=Modified [place] 3=Moderate Assistance 7=Complete [place] Therapy Quality Codes: 6 Independent with activity with or without an assistive device 5 Patient requires set up or clean up by helper. Patient completes activity by themselves 4 Supervision or touching assist (CGA). [place] provide cues , steadying assist 3 The helper provides less than half the effort to complete the activity 2 The helper provides more than half the effort to complete the activity 1 Dependent. The helper does all the effort to complete an activity 7 Patient refused to complete or attempt activity 9 The patient did not perform the activity before the current illness or injury 88 Not attempted due to Medical conditions or safety concerns Other Treatment Discussed with daughter and pt set up in home environment. Daughter states that she has gotten a tub transfer bench for tub/shower. Discussed with pt the difference between tub seat and tub/transfer bench. Pt given HEP and medium resistance theraband to increase UE strength and activity tolerance for daily functional tasks. Pt demonstrated understanding and tolerance for exercises. Skilled instruction given for correct technique of theraband exercises. After therapy, pt sitting up in bed with call light/phone in reach. All needs met in room. OT Short Term Goals Short Term Goals Time Frame: Jul 02, 2018 Bathing(FIM): 4 Lower Body Dressing(FIM): 3 Toileting(FIM): 4 Transfers (B,C,W/C) (FIM): 4 Additional Short Term Goals: 1-Demonstrate ADL Tasks, 2-Verbalize Understanding , 3-ImproveStrength/Dina 1=Demonstrate adherence to instructed precautions during ADL tasks. 2=Patient will verbalize/demonstrate understanding of assistive devices/ modifications for ADL. 3=Patient will improve strength/tolerance for activity to enable patient to perform ADL's. OT Shelter Goals Shelter Goals Time Frame: Jul 16, 2018 Eating (FIM): 6 Eating (QC): 6 Groomin Oral Hygiene (QC): 6 Bathing(FIM): 5 Shower/Bathe Self (QC): 4 Upper Body Dressing(FIM): 6 Upper Body Dressing (QC): 6 Lower Body Dressing(FIM): 5 Lower Body Dressing (QC): 5 On/Off Footwear (QC): 88 Toileting(FIM): 5 Toileting Hygiene (QC): 5 Toilet/Commode Transfer(FIM): 5 Toilet/Commode Transfer (QC): 5 Additional Goals: 1-Demonstrate ADL Tasks, 2-Verbalize Understanding, 3- ImproveStrength/Dina 1=Demonstrate adherence to instructed precautions during ADL tasks. 2=Patient will verbalize/demonstrate understanding of assistive devices/ modifications for ADL. 3=Patient will improve strength/tolerance for activity to enable patient to perform ADL's. OT Education/Plan Problem List/Assessment Pt admitted to ARU following bilateral AKA. Pt to benefit from skilled OT intervention for ADL training, transfers, strengthening, and safety education to increase level of independence and allow safe discharge plan. Discharge Recommendations Plan/Recommendations: Continue POC Treatment Plan/Plan of Care Patient would benefit from OT for education, treatment and training to promote independence in ADL's, mobility, safety and/or upper extremity function for ADL' s. Plan of Care: ADL Retraining, Functional Mobility, Group Exercise/Act as Ind, UE Funct Exercise/Act Treatment Duration: Jul 16, 2018 Frequency: Modified Program (IRF) Estimated Hrs Per Day: 1.5 hours per day Agreement: Yes Rehab Potential: Fair Time/GCodes Start Time: 13:30 Stop Time: 14:00 Total Time Billed (hr/min): 30 Billed Treatment Time 1 visit- FA 1 (15 min) EX 1 (15 min) EMMA CASEY Jun 27, 2018 14:00
--- NOTE | 2018-06-27 14:29 | Physical Therapy Daily Note ---
PT Daily Note-Current Subjective Agrees to PT. Pain Numeric Pain Scale: 5-Moderate Pain Location: Right Location Body Site: Thigh (residual limb) Pain Description: Ache, Pressure Comment: 06/30 same location left Mental Status Patient Orientation: Person, Place, Time, Situation Transfers Therapy Code Descriptions/Definitions Functional [place] Measure: 0=Not Assessed/NA 4=Minimal Assistance 1=Total Assistance 5=Supervision or Setup 2=Maximal Assistance 6=Modified [place] 3=Moderate Assistance 7=Complete [place] Therapy Quality Codes: 6 Independent with activity with or without an assistive device 5 Patient requires set up or clean up by helper. Patient completes activity by themselves 4 Supervision or touching assist (CGA). [place] provide cues , steadying assist 3 The helper provides less than half the effort to complete the activity 2 The helper provides more than half the effort to complete the activity 1 Dependent. The helper does all the effort to complete an activity 7 Patient refused to complete or attempt activity 9 The patient did not perform the activity before the current illness or injury 88 Not attempted due to Medical conditions or safety concerns Treatments Treatment consisted in education on rationale behind functional stretching and actual prolonged active hip extension stretch B. Pt held each stretch 2 x 3 min each. Pt then worked on core strengthening for lower and upper abs 2 x 10 reps each. Scapular protraction strengthening using the lats performed as well. All strength and stretching activitities performed to promote functional bed mobility and positioning as well as core strength for transfer progression. Assessment Pt unable to tolerate hip extension stretching with overpressure. PT Short Term Goals Short Term Goals Time Frame: Jul 02, 2018 Transfers (B,C,W/C) (FIM): 4 Wheelchair (FIM): 4 Wheelchair Distance: 150' Wheelchair Level of Assist: 4 PT Supervisor Shuttle Preparation Goals Supervisor Shuttle Preparation Goals PT Supervisor Shuttle Preparation Goals Time Frame: Jul 16, 2018 Transfers (B,C,W/C) (FIM): 5 Sit to Lying (QC): 6 Lying-Sitting on Side/Bed(QC): 6 Rollin Roll Left to Right (QC): 6 Chair/Oxc-hx-Qxcjg Xfer(QC): 4 Car Transfer (QC): 4 Wheelchair (FIM): 6 Distance: 200' Wheelchair Level of Assist: 6 Wheel 50 feet with 2 turns (QC: 6 PT Plan Problem List Problem List: Activity Tolerance, Functional Strength, Safety Treatment/Plan Treatment Plan: Continue Plan of Care Treatment Plan: Bed Mobility, Concurrent Therapy, Education, Functional Activity Dina, Functional Strength, Group Therapy, Safety, Therapeutic Exercise , Transfers Treatment Duration: Jul 16, 2018 Frequency: At least 5 of 7 days/Wk (IRF) Estimated Hrs Per Day: 1.5 hours per day Patient and/or Family Agrees t: Yes Safety Risks/Education Patient Education: Safety Issues Teaching Recipient: Patient Teaching Methods: Discussion Response to Teaching: Reinforcement Needed Time/GCodes Time In: 1250 Time Out: 1330 Total Billed Treatment Time: 40 Total Billed Treatment visit EX 40 EMMA QUISPE PT Jun 27, 2018 14:28
[2018-06-27 18:00] VITALS: BP 107/57
[2018-06-27] MEDS: CLOPIDOGREL 75 MG (PLAVIX) TABLET PO SCH (20:25)
[2018-06-27] MEDS: SIMvastatin 20 MG (ZOCOR) TAB PO SCH (20:25)
[2018-06-28] MEDS: HYDROcodone/APAP 5 MG/325 MG (LORTAB) TAB PO PRN ×4 (04:25→20:05)
[2018-06-28] MEDS: inSUlin ASPART (NovoLOG) 1 UNIT/0.01 ML (CHARGE PER UNIT) SC SCH ×4 (05:14→20:06)
[2018-06-28 05:41] VITALS: BP 111/61
[2018-06-28] MEDS: meTOprolol TARTRATE 25 MG (LOPRESSOR) TABLET PO SCH ×2 (06:27→16:45)
--- NOTE | 2018-06-28 08:00 | Occupational Ther Daily Note ---
OT Current Status-Daily Note Subjective Pt alert sitting up in bed. Pt agrees to therapy. C/o pain though did not rate and wanted to continue with therapy. Pain then spiked during first 1/2 hour and pt requested to go back to bed and continue therapy at a later time. Mental Status/Objective Patient Orientation: Person, Place, Time, Situation Therapy Code Descriptions/Definitions Functional [place] Measure: 0=Not Assessed/NA 4=Minimal Assistance 1=Total Assistance 5=Supervision or Setup 2=Maximal Assistance 6=Modified [place] 3=Moderate Assistance 7=Complete [place] ADL-Treatment Using nancy lift, pt transferred to [facility]. Pt able to lift self up off bed to slide nancy sling under buttocks for transfer. Min A due to pain to doff underwear. Transferred from [facility] to rolling shower chair then pain spiked and requested to go back to bed. In bed, assist to cleanse buttocks and apply ointment to coccyx. After therapy, pt lying on side in bed with call light/ phone in reach. All needs met in room. Nrsg notified. Therapy Code Descriptions/Definitions Functional [place] Measure: 0=Not Assessed/NA 4=Minimal Assistance 1=Total Assistance 5=Supervision or Setup 2=Maximal Assistance 6=Modified [place] 3=Moderate Assistance 7=Complete [place] Therapy Quality Codes: 6 Independent with activity with or without an assistive device 5 Patient requires set up or clean up by helper. Patient completes activity by themselves 4 Supervision or touching assist (CGA). [place] provide cues , steadying assist 3 The helper provides less than half the effort to complete the activity 2 The helper provides more than half the effort to complete the activity 1 Dependent. The helper does all the effort to complete an activity 7 Patient refused to complete or attempt activity 9 The patient did not perform the activity before the current illness or injury 88 Not attempted due to Medical conditions or safety concerns Toileting (FIM): 2 Toileting Hygiene (QC): 2 Transfers (B, C, W/C) (FIM): 1 Toilet/Commode Transfer (FIM): 1 Toilet Transfer (QC): 1 OT Short Term Goals Short Term Goals Time Frame: Jul 02, 2018 Bathing(FIM): 4 Lower Body Dressing(FIM): 3 Toileting(FIM): 4 Transfers (B,C,W/C) (FIM): 4 Additional Short Term Goals: 1-Demonstrate ADL Tasks, 2-Verbalize Understanding , 3-ImproveStrength/Dina 1=Demonstrate adherence to instructed precautions during ADL tasks. 2=Patient will verbalize/demonstrate understanding of assistive devices/ modifications for ADL. 3=Patient will improve strength/tolerance for activity to enable patient to perform ADL's. OT Computer Systems Integrator Goals Computer Systems Integrator Goals Time Frame: Jul 16, 2018 Eating (FIM): 6 Eating (QC): 6 Groomin Oral Hygiene (QC): 6 Bathing(FIM): 5 Shower/Bathe Self (QC): 4 Upper Body Dressing(FIM): 6 Upper Body Dressing (QC): 6 Lower Body Dressing(FIM): 5 Lower Body Dressing (QC): 5 On/Off Footwear (QC): 88 Toileting(FIM): 5 Toileting Hygiene (QC): 5 Toilet/Commode Transfer(FIM): 5 Toilet/Commode Transfer (QC): 5 Additional Goals: 1-Demonstrate ADL Tasks, 2-Verbalize Understanding, 3- ImproveStrength/Dina 1=Demonstrate adherence to instructed precautions during ADL tasks. 2=Patient will verbalize/demonstrate understanding of assistive devices/ modifications for ADL. 3=Patient will improve strength/tolerance for activity to enable patient to perform ADL's. OT Education/Plan Problem List/Assessment Pt admitted to ARU following bilateral AKA. Pt to benefit from skilled OT intervention for ADL training, transfers, strengthening, and safety education to increase level of independence and allow safe discharge plan. Discharge Recommendations Plan/Recommendations: Continue POC Treatment Plan/Plan of Care Patient would benefit from OT for education, treatment and training to promote independence in ADL's, mobility, safety and/or upper extremity function for ADL' s. Plan of Care: ADL Retraining, Functional Mobility, Group Exercise/Act as Ind, UE Funct Exercise/Act Treatment Duration: Jul 16, 2018 Frequency: Modified Program (IRF) Estimated Hrs Per Day: 1.5 hours per day Agreement: Yes Rehab Potential: Fair Time/GCodes Start Time: 07:00 Stop Time: 07:30 Total Time Billed (hr/min): 30 Billed Treatment Time 1 visit-ADL 2 (30 min) EMMA CASEY Jun 28, 2018 08:00
[2018-06-28] MEDS: GABAPENTIN 600 MG (NEURONTIN) TAB PO SCH ×3 (08:09→20:04)
[2018-06-28] MEDS: ASPIRIN E.C. 81 MG (ECOTRIN) TAB PO SCH (08:09)
[2018-06-28] MEDS: IRON SUCROSE 200 MG/10 ML (VENOFER) VIAL IV SCH (08:09)
[2018-06-28] MEDS: ENOXAPARIN 40 MG/0.4 ML (LOVENOX) SYR SC SCH (08:09)
[2018-06-28] MEDS: GABAPENTIN 300 MG (NEURONTIN) CAP PO SCH ×3 (08:09→20:04)
--- NOTE | 2018-06-28 09:04 | PM&R Progress Note ---
Subjective HPI/CC On Admission Date Seen by Provider: Jun 28, 2018 Time Seen by Provider: 09:15 CC: Bilateral [id number] amputations 06/18/18 Dr Alvarado [facility] HPI: This is a 68-year-old white male clinic patient of Dr. Lyn and Dr. Sykes who presents to the inpatient rehab facility after uncomplicated above the knee amputations by Dr. Alvarado at [facility] on 06/18/18. Multiple attempts with vascular surgery and other modalities failed the severe peripheral vascular disease that had been progressive and unable to be salvaged. Prior to admission he was crawling around at home because of his legs with simply not work. He did have a delirium during the hospital course which was managed conservatively and still has subtle confusion. There is probably a component of vascular dementia involved here among other issues. His daughter arrive with him with the discharge packet for [facility].s at this current time he is ready for a pain pill and rest since he is just arrived from a long hospital course at [facility] in [place]. I reviewed all discharge medications and lab evaluations and have reconciled all meds to continue. Subjective/Events-last exam Dislikes IVs Participating in therapies Using power chair and doing well Pain is controlled Slept well last night Has no significant issues Will evaluate the need for removal of grzegorz this weekend Review of Systems General: Fatigue Objective Exam Vital Signs Vital Signs Date Time Temp Pulse Resp B/P (MAP) Pulse Ox O2 Delivery O2 Flow Rate FiO2 06/28/18 09:00 Room Air 06/28/18 05:41 98.0 61 20 111/61 (78) 98 Capillary Refill : General Appearance: No Apparent Distress, WD/WN, Chronically ill, Mild Distress HEENT: PERRL/EOMI, Normal ENT Inspection, Pharynx Normal, Moist Mucous Membranes Neck: Full Range of Motion, Normal Inspection, Non Tender, Supple Respiratory: Chest Non Tender, Lungs Clear, Normal Breath Sounds, No Accessory Muscle Use, No Respiratory Distress, Decreased Breath Sounds Cardiovascular: Regular Rate, Rhythm, No Edema, No Gallop, No JVD, No Murmur Gastrointestinal: Normal Bowel Sounds, No Organomegaly, No Pulsatile Mass, Non Tender, Soft Rectal: Deferred Back: Normal Inspection, No CVA Tenderness, No Vertebral Tenderness Extremity: Normal Capillary Refill, Normal Inspection, Normal Range of Motion, Non Tender, No Calf Tenderness, No Pedal Edema, Other (bilateral AKA ) Neurologic/Psychiatric: Alert, Oriented x3, No Motor/Sensory Deficits, Normal Mood/Affect Skin: Normal Color, Warm/Dry Lymphatic: No Adenopathy Results/Procedures Lab Patient resulted labs reviewed. Assessment/Plan Assessment and Plan Assess & Plan/Chief Complaint Assessment: Bilateral AKA Delirium resolved CAD Hx of CABG HTN HLP COPD Iron deficiency anemia Plan: Check labs prn Iron level assessed IS Wound care for decubitus ulcers sacrum Dr Thakur consultation for CAD Staple removal this weekend if healing surgical sites Venofer infusions (1) S/P AKA (above knee amputation) bilateral (2) Hx of CABG (3) Delirium (4) Dementia (5) CAD (coronary artery disease) (6) Anemia (7) COPD (chronic obstructive pulmonary disease) (8) Iron deficiency Clinical Quality Measures DVT/VTE Risk/Contraindication: Risk Factor Score Per Nursin RFS Level Per Nursing on Admit: 4+=Very High KARISSA LIMA DO Jun 28, 2018 09:04
--- NOTE | 2018-06-28 09:11 | Cardiology Progress Note ---
Subjective Date Seen by Provider: Jun 28, 2018 Time Seen by Provider: 09:06 Subjective/Events-last exam Patient is in bed, feeling better, no new complaint, no chest pain Review of Systems General: No Chills, No Night Sweats, No Fatigue, No Malaise, No Appetite, No Other HEENT: No Head Aches, No Visual Changes, No Eye Pain, No Ear Pain, No Dysphasia , No Sinus Congestion, No Post Nasal Drip, No Sore Throat, No Other Pulmonary: No Dyspnea, No Cough, No Pleuritic Chest Pain, No Other Cardiovascular: No: Chest Pain, Palpitations, Orthopnea, Paroxysmal Noc. Dyspnea, Edema, Lt Headedness, Other Objective-Cardiology Exam Last Set of Vital Signs Vital Signs 06/28/18 05:41 Temp 98.0 Pulse 61 Resp 20 B/P (MAP) 111/61 (78) Pulse Ox 98 O2 Delivery Room Air Capillary Refill : I&O Intake and Output 06/28/18 00:00 Intake Total 2300 ml Output Total 1550 ml Balance 750 ml Intake Oral 2300 ml Output Urine Total 1550 ml # Voids 3 # Bowel Movements 1 General: Alert, Oriented X3 (subtle poor recall), Cooperative, No Acute Distress HEENT: Atraumatic, PERRLA Neck: Supple, No JVD, No Thyromegaly, +2 Carotid Pulse No Bruit, No LAD Lungs: Clear to Auscultation, Normal Air Movement Heart: Regular Rate, Normal S1, Normal S2, No Murmurs Abdomen: Normal Bowel Sounds, Soft, No Tenderness, No Hepatosplenomegaly, No Masses Extremities: Other ( bilateral AKA) Skin: No Rashes, No Breakdown, No Significant Lesion, Other (AKA staple lines noted) Neuro: Cranial Nerves 3-12 NL Psych/Mental Status: Mental Status NL (suble confusion), Mood NL, Other ( subtle confusion noted) Results Lab Laboratory Tests Test 06/27/18 11:15 06/27/18 16:11 06/27/18 20:29 06/28/18 04:29 Range/Units Glucometer 201 H 169 H 247 H 130 H 70-110 MG/DL A/P-Cardiology Admission Diagnosis PVD CAD CHF HTN Assessment/Plan Peripheral arterial disease, history of bilat foot gangrene. Multiple interventions in the past, had bypass surgery right femoropopliteal and also femorofemoral bypass in October [address] Hutchinson. Underwent multiple angiogram, had aortic stent placed by Dr. Benitez, failed percutaneous intervention of the lower extremity to establish flow, had extensive gangrene. Appeared to be inoperable, readmitted to [facility] and underwent bilateral AKA. Postoperatively he was confused. Currently better, continue on current medications and monitor Coronary artery disease history of CABG done on 04/22/[address] Olmos using DEL ANGEL to LAD, VG to OM1, VG to Acute marginal branch and PDA of RCA, continue with medical therapy Congestive heart failure, chronic compensated left ventricular systolic dysfunction, ischemic cardiomyopathy, ejection fraction 45-50 percent, mild mitral regurgitation, estimated pulmonary artery pressure of 35 mmHg, ischemic cardiomyopathy, continue on current medication and monitor Hypertension, continue on current medications and continue to monitor blood pressure Hyperlipidemia, monitor lipids Diabetes mellitus,management per PCP Tobaccoism, educated on smoking cessation. Mild carotid artery stenosis last checkup was done in July 2014 Clinical Quality Measures DVT/VTE Risk/Contraindication: Risk Factor Score Per Nursin RFS Level Per Nursing on Admit: 4+=Very High HARLEY ORDOÑEZ MD Jun 28, 2018 09:11
--- NOTE | 2018-06-28 10:04 | Physical Therapy Daily Note ---
PT Daily Note-Current Subjective Patient in bed pre tx, agrees to PT, has 7/10 pain in his bottom and residual limbs. Appearance Patient in bed post tx with nurse call, phone, tray, all needs met. Mental Status Patient Orientation: Person, Place, Situation Transfers Therapy Code Descriptions/Definitions Functional [place] Measure: 0=Not Assessed/NA 4=Minimal Assistance 1=Total Assistance 5=Supervision or Setup 2=Maximal Assistance 6=Modified [place] 3=Moderate Assistance 7=Complete [place] Therapy Quality Codes: 6 Independent with activity with or without an assistive device 5 Patient requires set up or clean up by helper. Patient completes activity by themselves 4 Supervision or touching assist (CGA). [place] provide cues , steadying assist 3 The helper provides less than half the effort to complete the activity 2 The helper provides more than half the effort to complete the activity 1 Dependent. The helper does all the effort to complete an activity 7 Patient refused to complete or attempt activity 9 The patient did not perform the activity before the current illness or injury 88 Not attempted due to Medical conditions or safety concerns Transfers (B, C, W/C) (FIM): 1 Supine to/from Sit: 4 Bed to/from Chair: 1 Manuel for transfers at this time due to pressure sores on bottom. Wheelchair Training Does the Pt Use a Wheelchair?: Yes Wheelchair (FIM): 5 Type of Wheelchair: Manual Practiced with power chair on/off elevator, through hallways, up/down ramps, over sidewalks. Patient drove power chair with SBA, occasional cues for direction. Patient also performed pressure relief with tilt on chair and with chair pushup and with shifting weight side to side. Exercises UE exercises x20 (bicep curls with 6#, rows with RTB, chair pushups 2 sets of 10 ) Treatments transfers, bed mobility, wheelchair mobility training, functional strengthening Assessment Current Status: Fair Progress improving wheelchair mobility and UE strength PT Short Term Goals Short Term Goals Time Frame: Jul 02, 2018 Transfers (B,C,W/C) (FIM): 4 Wheelchair (FIM): 4 Wheelchair Distance: 150' Wheelchair Level of Assist: 4 PT Mcfp Goals Medical Researcher Goals PT Medical Researcher Goals Time Frame: Jul 16, 2018 Transfers (B,C,W/C) (FIM): 5 Sit to Lying (QC): 6 Lying-Sitting on Side/Bed(QC): 6 Rollin Roll Left to Right (QC): 6 Chair/Dcc-ta-Ijuoo Xfer(QC): 4 Car Transfer (QC): 4 Wheelchair (FIM): 6 Distance: 200' Wheelchair Level of Assist: 6 Wheel 50 feet with 2 turns (QC: 6 PT Plan Problem List Problem List: Activity Tolerance, Functional Strength, Safety, Balance, Transfer, Bed Mobility, ROM Treatment/Plan Treatment Plan: Continue Plan of Care Treatment Plan: Bed Mobility, Concurrent Therapy, Education, Functional Activity Dina, Functional Strength, Group Therapy, Safety, Therapeutic Exercise , Transfers Treatment Duration: Jul 16, 2018 Frequency: At least 5 of 7 days/Wk (IRF) Estimated Hrs Per Day: 1.5 hours per day Patient and/or Family Agrees t: Yes Safety Risks/Education Patient Education: Transfer Techniques, Correct Positioning, W/C Management Teaching Recipient: Patient Teaching Methods: Demonstration, Discussion Response to Teaching: Reinforcement Needed practiced different techniques of pressure relief Time/GCodes Time In: 0900 Time Out: 1000 Total Billed Treatment Time: 60 Total Billed Treatment 1 visit [facility] 15' EX 20' FA 25' AMAURY GONZALES PT Jun 28, 2018 10:04
--- NOTE | 2018-06-28 12:00 | Occupational Ther Daily Note ---
OT Current Status-Daily Note Subjective Pt alert, sitting up in bed. Pt agrees to therapy. No c/o pain at this time. Mental Status/Objective Therapy Code Descriptions/Definitions Functional [place] Measure: 0=Not Assessed/NA 4=Minimal Assistance 1=Total Assistance 5=Supervision or Setup 2=Maximal Assistance 6=Modified [place] 3=Moderate Assistance 7=Complete [place] ADL-Treatment Therapy Code Descriptions/Definitions Functional [place] Measure: 0=Not Assessed/NA 4=Minimal Assistance 1=Total Assistance 5=Supervision or Setup 2=Maximal Assistance 6=Modified [place] 3=Moderate Assistance 7=Complete [place] Therapy Quality Codes: 6 Independent with activity with or without an assistive device 5 Patient requires set up or clean up by helper. Patient completes activity by themselves 4 Supervision or touching assist (CGA). [place] provide cues , steadying assist 3 The helper provides less than half the effort to complete the activity 2 The helper provides more than half the effort to complete the activity 1 Dependent. The helper does all the effort to complete an activity 7 Patient refused to complete or attempt activity 9 The patient did not perform the activity before the current illness or injury 88 Not attempted due to Medical conditions or safety concerns Other Treatment Pt asking questions about sliding board transfers and tub/shower transfers. Pt wanting demonstration of each so that he can understand what is asked of him when he is able to complete sliding transfer. Pt able to verbalize understanding of sliding board transfer after demonstration. Discussing tub transfer bench and how it will be positioned in tub. Daughter has already commented that she has gotten a bench for home use. Pt able to verbalize sequence and understanding of how to complete tub bench transfer. After therapy , pt sitting in bed with call light/phone in reach. All needs met in room. OT Short Term Goals Short Term Goals Time Frame: Jul 02, 2018 Bathing(FIM): 4 Lower Body Dressing(FIM): 3 Toileting(FIM): 4 Transfers (B,C,W/C) (FIM): 4 Additional Short Term Goals: 1-Demonstrate ADL Tasks, 2-Verbalize Understanding , 3-ImproveStrength/Dina 1=Demonstrate adherence to instructed precautions during ADL tasks. 2=Patient will verbalize/demonstrate understanding of assistive devices/ modifications for ADL. 3=Patient will improve strength/tolerance for activity to enable patient to perform ADL's. OT Roastmaster Goals Fdc Goals Time Frame: Jul 16, 2018 Eating (FIM): 6 Eating (QC): 6 Groomin Oral Hygiene (QC): 6 Bathing(FIM): 5 Shower/Bathe Self (QC): 4 Upper Body Dressing(FIM): 6 Upper Body Dressing (QC): 6 Lower Body Dressing(FIM): 5 Lower Body Dressing (QC): 5 On/Off Footwear (QC): 88 Toileting(FIM): 5 Toileting Hygiene (QC): 5 Toilet/Commode Transfer(FIM): 5 Toilet/Commode Transfer (QC): 5 Additional Goals: 1-Demonstrate ADL Tasks, 2-Verbalize Understanding, 3- ImproveStrength/Dina 1=Demonstrate adherence to instructed precautions during ADL tasks. 2=Patient will verbalize/demonstrate understanding of assistive devices/ modifications for ADL. 3=Patient will improve strength/tolerance for activity to enable patient to perform ADL's. OT Education/Plan Problem List/Assessment Pt admitted to ARU following bilateral AKA. Pt to benefit from skilled OT intervention for ADL training, transfers, strengthening, and safety education to increase level of independence and allow safe discharge plan. Discharge Recommendations Plan/Recommendations: Continue POC Treatment Plan/Plan of Care Patient would benefit from OT for education, treatment and training to promote independence in ADL's, mobility, safety and/or upper extremity function for ADL' s. Plan of Care: ADL Retraining, Functional Mobility, Group Exercise/Act as Ind, UE Funct Exercise/Act Treatment Duration: Jul 16, 2018 Frequency: Modified Program (IRF) Estimated Hrs Per Day: 1.5 hours per day Agreement: Yes Rehab Potential: Fair Time/GCodes Start Time: 11:20 Stop Time: 12:00 Total Time Billed (hr/min): 40 Billed Treatment Time 1 visit-FA 3 (40 min) EMMA CASEY Jun 28, 2018 12:00
--- NOTE | 2018-06-28 14:45 | Therapy Group Daily Note ---
Therapy Daily Group Note Patient Education Topic Energy Cons Exercises LE Seated Exercise, UE Exercise Session Ratio (pt:therapist): 3:1 Goal of Session: Energy Conservation Tech., UE/LE Strengthing Goal Met for this Session: Yes Pt Benefit of Group: Contributions to Others, F/U Use of Strategies @Home, Recognition of Peers, Socialization Other/Notes Pt maneuvered power w/c to OT/PT group. Group consisted of introductions (name , place living, worst trouble in childhood), socialization, seated UE/LE exercises and energy conservation. Pt introduced self appropriately and actively listened to peers. Pt attentive throughout group and contributed to discussions. Pt initiated conversations and questions throughout group with peers and therapists. Pt able to complete UE exercises and core exercises. Due to AKA pt is limited on LE exercises. Pt gave own strategies for energy conservation to acknowledge understanding of educational topic. After therapy, pt lying in bed with call light/phone in reach. All needs met in room. Start Time: 13:00 Stop Time: 14:20 Total Billed Treatment Time: 80 Total Billed Treatment 1-GRP EMMA CASEY Jun 28, 2018 14:45
[2018-06-28 18:00] VITALS: BP 95/47
[2018-06-28] MEDS: CLOPIDOGREL 75 MG (PLAVIX) TABLET PO SCH (20:05)
[2018-06-28] MEDS: SIMvastatin 20 MG (ZOCOR) TAB PO SCH (20:05)
[2018-06-29] MEDS: HYDROcodone/APAP 5 MG/325 MG (LORTAB) TAB PO PRN ×4 (02:02→22:13)
[2018-06-29] MEDS: NAPROXEN 250 MG (NAPROSYN) TABLET PO PRN (02:03)
[2018-06-29 05:40] VITALS: BP 114/56
[2018-06-29] MEDS: inSUlin ASPART (NovoLOG) 1 UNIT/0.01 ML (CHARGE PER UNIT) SC SCH ×4 (05:44→20:45)
[2018-06-29] MEDS: meTOprolol TARTRATE 25 MG (LOPRESSOR) TABLET PO SCH ×2 (05:59→17:04)
[2018-06-29] MEDS: ASPIRIN E.C. 81 MG (ECOTRIN) TAB PO SCH (08:25)
[2018-06-29] MEDS: GABAPENTIN 600 MG (NEURONTIN) TAB PO SCH ×3 (08:25→20:54)
[2018-06-29] MEDS: ENOXAPARIN 40 MG/0.4 ML (LOVENOX) SYR SC SCH (08:25)
[2018-06-29] MEDS: GABAPENTIN 300 MG (NEURONTIN) CAP PO SCH ×3 (08:25→20:54)
--- NOTE | 2018-06-29 11:09 | PM&R Progress Note ---
Subjective HPI/CC On Admission Date Seen by Provider: Jun 29, 2018 Time Seen by Provider: 11:10 CC: Bilateral [id number] amputations 06/18/18 Dr Alvarado [facility] HPI: This is a 68-year-old white male clinic patient of Dr. Lyn and Dr. Sykes who presents to the inpatient rehab facility after uncomplicated above the knee amputations by Dr. Alvarado at [facility] on 06/18/18. Multiple attempts with vascular surgery and other modalities failed the severe peripheral vascular disease that had been progressive and unable to be salvaged. Prior to admission he was crawling around at home because of his legs with simply not work. He did have a delirium during the hospital course which was managed conservatively and still has subtle confusion. There is probably a component of vascular dementia involved here among other issues. His daughter arrive with him with the discharge packet for [facility].s at this current time he is ready for a pain pill and rest since he is just arrived from a long hospital course at [facility] in [place]. I reviewed all discharge medications and lab evaluations and have reconciled all meds to continue. Subjective/Events-last exam Dislikes IVs but ok with IV Venofer for the 5 doses Participating in therapies Using power chair and doing well Pain is controlled Slept well again last night Has no significant issues Will remove every other staple tomorrow and assess to remove the rest Sunday Wants to go home but unsure of the feasibility of that since he is bilateral AKA Review of Systems General: Fatigue Musculoskeletal: leg pain Objective Exam Vital Signs Vital Signs Date Time Temp Pulse Resp B/P (MAP) Pulse Ox O2 Delivery O2 Flow Rate FiO2 06/29/18 09:00 Room Air 06/29/18 05:40 98.6 76 17 114/56 (75) 95 Capillary Refill : General Appearance: No Apparent Distress, WD/WN, Chronically ill, Mild Distress HEENT: PERRL/EOMI, Normal ENT Inspection, Pharynx Normal, Moist Mucous Membranes Neck: Full Range of Motion, Normal Inspection, Non Tender, Supple Respiratory: Chest Non Tender, Lungs Clear, Normal Breath Sounds, No Accessory Muscle Use, No Respiratory Distress, Decreased Breath Sounds Cardiovascular: Regular Rate, Rhythm, No Edema, No Gallop, No JVD, No Murmur Gastrointestinal: Normal Bowel Sounds, No Organomegaly, No Pulsatile Mass, Non Tender, Soft Rectal: Deferred Back: Normal Inspection, No CVA Tenderness, No Vertebral Tenderness Extremity: Normal Capillary Refill, Normal Inspection, Normal Range of Motion, Non Tender, No Calf Tenderness, No Pedal Edema, Other (bilateral AKA ) Neurologic/Psychiatric: Alert, Oriented x3, No Motor/Sensory Deficits, Normal Mood/Affect Skin: Normal Color, Warm/Dry, Other (staple line reveals no drainage and no erythema) Lymphatic: No Adenopathy Results/Procedures Lab Patient resulted labs reviewed. Assessment/Plan Assessment and Plan Assess & Plan/Chief Complaint Assessment: Bilateral AKA Delirium resolved CAD Hx of CABG HTN HLP COPD Iron deficiency anemia receiving Venofer infusions 5 doses total Plan: Check labs prn Iron level assessed and treated IS Wound care for decubitus ulcers sacrum Dr Thakur consultation for CAD Staple removal this weekend if healing surgical sites Venofer infusions (1) S/P AKA (above knee amputation) bilateral (2) Hx of CABG (3) Delirium (4) Dementia (5) CAD (coronary artery disease) (6) Anemia (7) COPD (chronic obstructive pulmonary disease) (8) Iron deficiency Clinical Quality Measures DVT/VTE Risk/Contraindication: Risk Factor Score Per Nursin RFS Level Per Nursing on Admit: 4+=Very High KARISSA LIMA DO Jun 29, 2018 11:09
--- NOTE | 2018-06-29 11:50 | Physical Therapy Daily Note ---
PT Daily Note-Current Subjective Pt is sitting up in bed, and he notes that he is ready to work. Mental Status Patient Orientation: Person, Place, Time, Situation Transfers Therapy Code Descriptions/Definitions Functional [place] Measure: 0=Not Assessed/NA 4=Minimal Assistance 1=Total Assistance 5=Supervision or Setup 2=Maximal Assistance 6=Modified [place] 3=Moderate Assistance 7=Complete [place] Therapy Quality Codes: 6 Independent with activity with or without an assistive device 5 Patient requires set up or clean up by helper. Patient completes activity by themselves 4 Supervision or touching assist (CGA). [place] provide cues , steadying assist 3 The helper provides less than half the effort to complete the activity 2 The helper provides more than half the effort to complete the activity 1 Dependent. The helper does all the effort to complete an activity 7 Patient refused to complete or attempt activity 9 The patient did not perform the activity before the current illness or injury 88 Not attempted due to Medical conditions or safety concerns Transfers (B, C, W/C) (FIM): 1 Gait Training Does the Patient Walk?: No and Walking Goal NOT indicated Wheelchair Training Does the Pt Use a Wheelchair?: Yes Wheelchair (FIM): 6 Wheelchair Distance: 3=150 ft Distance: 600ft Wheelchair Level of Assist: 6 Wheel 50 ft with 2 turns (QC): 6 Wheel 150 ft (QC): 6 Type of Wheelchair: Motorized Exercises Supine Ex: Glut sets Supine Reps: 20 Performed supine hip flexion, prone hip extension, side lying hip abduct and extension. Performed (B) UE RTB shoulder flex and triceps extension. Assessment Current Status: Fair Progress Pt has to nancy lift from bed to power chair due to a sore on his sacrum. Good safety and awareness during power chair training. PT Short Term Goals Short Term Goals Time Frame: Jul 02, 2018 Transfers (B,C,W/C) (FIM): 4 Wheelchair (FIM): 4 Wheelchair Distance: 150' Wheelchair Level of Assist: 4 PT Care Home Goals Care Home Goals PT Kettle Room Helper Goals Time Frame: Jul 16, 2018 Transfers (B,C,W/C) (FIM): 5 Sit to Lying (QC): 6 Lying-Sitting on Side/Bed(QC): 6 Rollin Roll Left to Right (QC): 6 Chair/Cki-no-Gdyzc Xfer(QC): 4 Car Transfer (QC): 4 Wheelchair (FIM): 6 Distance: 200' Wheelchair Level of Assist: 6 Wheel 50 feet with 2 turns (QC: 6 PT Plan Treatment/Plan Treatment Plan: Continue Plan of Care Treatment Plan: Bed Mobility, Concurrent Therapy, Education, Functional Activity Dina, Functional Strength, Group Therapy, Safety, Therapeutic Exercise , Transfers Treatment Duration: Jul 16, 2018 Frequency: At least 5 of 7 days/Wk (IRF) Estimated Hrs Per Day: 1.5 hours per day Patient and/or Family Agrees t: Yes Time/GCodes Time In: 1025 Time Out: 1055 Total Billed Treatment Time: 30 Total Billed Treatment 1, ex 10, fa 20 MUNIRA RANGEL PT Jun 29, 2018 11:50
--- NOTE | 2018-06-29 17:26 | NUR ---
Pt declines pain medication. Occasionally will take tyle. Amb via FWW SBA. Wears back brace at all times except for dressing change. Call light in reach. Denies complaints.
[2018-06-29 17:43] VITALS: BP 108/53
[2018-06-29] MEDS: CLOPIDOGREL 75 MG (PLAVIX) TABLET PO SCH (20:54)
[2018-06-29] MEDS: SIMvastatin 20 MG (ZOCOR) TAB PO SCH (20:54)
[2018-06-30] MEDS: HYDROcodone/APAP 5 MG/325 MG (LORTAB) TAB PO PRN ×4 (05:10→20:46)
[2018-06-30 05:12] VITALS: BP 106/55
[2018-06-30] MEDS: inSUlin ASPART (NovoLOG) 1 UNIT/0.01 ML (CHARGE PER UNIT) SC SCH ×4 (05:36→20:26)
[2018-06-30] MEDS: meTOprolol TARTRATE 25 MG (LOPRESSOR) TABLET PO SCH ×2 (05:59→17:23)
--- NOTE | 2018-06-30 08:39 | NUR ---
Jovan Khan to bottom.
[2018-06-30] MEDS: GABAPENTIN 300 MG (NEURONTIN) CAP PO SCH ×3 (08:41→20:44)
[2018-06-30] MEDS: GABAPENTIN 600 MG (NEURONTIN) TAB PO SCH ×3 (08:41→20:43)
[2018-06-30] MEDS: ASPIRIN E.C. 81 MG (ECOTRIN) TAB PO SCH (08:41)
[2018-06-30] MEDS: ENOXAPARIN 40 MG/0.4 ML (LOVENOX) SYR SC SCH (08:42)
[2018-06-30] MEDS: IRON SUCROSE 200 MG/10 ML (VENOFER) VIAL IV SCH (08:44)
--- NOTE | 2018-06-30 11:41 | PM&R Progress Note ---
Subjective HPI/CC On Admission Date Seen by Provider: Jun 30, 2018 Time Seen by Provider: 11:15 CC: Bilateral [id number] amputations 06/18/18 Dr Alvarado [facility] HPI: This is a 68-year-old white male clinic patient of Dr. Lyn and Dr. Sykes who presents to the inpatient rehab facility after uncomplicated above the knee amputations by Dr. Alvarado at [facility] on 06/18/18. Multiple attempts with vascular surgery and other modalities failed the severe peripheral vascular disease that had been progressive and unable to be salvaged. Prior to admission he was crawling around at home because of his legs with simply not work. He did have a delirium during the hospital course which was managed conservatively and still has subtle confusion. There is probably a component of vascular dementia involved here among other issues. His daughter arrive with him with the discharge packet for [facility].s at this current time he is ready for a pain pill and rest since he is just arrived from a long hospital course at [facility] in [place]. I reviewed all discharge medications and lab evaluations and have reconciled all meds to continue. Subjective/Events-last exam Will allow Dr. Simons to decide if grzegorz can be removed every other one tomorrow Decubitus ulcer managed We'll work on avoid using Manuel lift and start using sideboard today Bowels are moving Eating and drinking well Constantly asks to go home Wants to work on his [employer] business at home Review of Systems General: Fatigue Objective Exam Vital Signs Vital Signs Date Time Temp Pulse Resp B/P (MAP) Pulse Ox O2 Delivery O2 Flow Rate FiO2 06/30/18 10:06 Room Air 06/30/18 05:12 98.0 80 20 106/55 (72) 98 Capillary Refill : General Appearance: No Apparent Distress, WD/WN, Chronically ill, Mild Distress HEENT: PERRL/EOMI, Normal ENT Inspection, Pharynx Normal, Moist Mucous Membranes Neck: Full Range of Motion, Normal Inspection, Non Tender, Supple Respiratory: Chest Non Tender, Lungs Clear, Normal Breath Sounds, No Accessory Muscle Use, No Respiratory Distress, Decreased Breath Sounds Cardiovascular: Regular Rate, Rhythm, No Edema, No Gallop, No JVD, No Murmur Gastrointestinal: Normal Bowel Sounds, No Organomegaly, No Pulsatile Mass, Non Tender, Soft Rectal: Deferred Back: Normal Inspection, No CVA Tenderness, No Vertebral Tenderness Extremity: Normal Capillary Refill, Normal Inspection, Normal Range of Motion, Non Tender, No Calf Tenderness, No Pedal Edema, Other (bilateral AKA ) Neurologic/Psychiatric: Alert, Oriented x3, No Motor/Sensory Deficits, Normal Mood/Affect Skin: Normal Color, Warm/Dry, Other (staple line reveals no drainage and no erythema) Lymphatic: No Adenopathy Results/Procedures Lab Patient resulted labs reviewed. Assessment/Plan Assessment and Plan Assess & Plan/Chief Complaint Assessment: Bilateral AKA Delirium resolved CAD Hx of CABG HTN HLP COPD Iron deficiency anemia receiving Venofer infusions 5 doses total Plan: Check labs prn Iron level assessed and treated IS Wound care for decubitus ulcers sacrum Dr Thakur consultation for CAD Staple removal this weekend if healing surgical sites Venofer infusions Dr Simons to evaluate when grzegorz can be removed from stump incisions (1) S/P AKA (above knee amputation) bilateral (2) Hx of CABG (3) Delirium (4) Dementia (5) CAD (coronary artery disease) (6) Anemia (7) COPD (chronic obstructive pulmonary disease) (8) Iron deficiency Clinical Quality Measures DVT/VTE Risk/Contraindication: Risk Factor Score Per Nursin RFS Level Per Nursing on Admit: 4+=Very High KARISSA LIMA DO Jun 30, 2018 11:41
--- NOTE | 2018-06-30 13:24 | NUR ---
Dr. Soto here to see patient. Orders to check with Dr. Simons in AM (07/01/18) to see if it is ok to remove grzegorz.
[2018-06-30 17:21] VITALS: BP 114/55
[2018-06-30] MEDS: CLOPIDOGREL 75 MG (PLAVIX) TABLET PO SCH (20:43)
[2018-06-30] MEDS: SIMvastatin 20 MG (ZOCOR) TAB PO SCH (20:44)
[2018-07-01 05:52] VITALS: BP 110/64
[2018-07-01] MEDS: inSUlin ASPART (NovoLOG) 1 UNIT/0.01 ML (CHARGE PER UNIT) SC SCH ×4 (06:14→21:40)
[2018-07-01] MEDS: meTOprolol TARTRATE 25 MG (LOPRESSOR) TABLET PO SCH ×2 (06:36→17:47)
[2018-07-01] MEDS: HYDROcodone/APAP 5 MG/325 MG (LORTAB) TAB PO PRN ×4 (08:39→20:43)
[2018-07-01] MEDS: GABAPENTIN 300 MG (NEURONTIN) CAP PO SCH ×3 (08:39→20:42)
[2018-07-01] MEDS: ASPIRIN E.C. 81 MG (ECOTRIN) TAB PO SCH (08:39)
[2018-07-01] MEDS: ENOXAPARIN 40 MG/0.4 ML (LOVENOX) SYR SC SCH (08:39)
[2018-07-01] MEDS: GABAPENTIN 600 MG (NEURONTIN) TAB PO SCH ×3 (08:39→20:42)
--- NOTE | 2018-07-01 09:29 | PM&R Progress Note ---
Subjective HPI/CC On Admission Date Seen by Provider: Jul 01, 2018 Time Seen by Provider: 09:30 CC: Bilateral [id number] amputations 06/18/18 Dr Alvarado [facility] HPI: This is a 68-year-old white male clinic patient of Dr. Lyn and Dr. Sykes who presents to the inpatient rehab facility after uncomplicated above the knee amputations by Dr. Alvarado at [facility] on 06/18/18. Multiple attempts with vascular surgery and other modalities failed the severe peripheral vascular disease that had been progressive and unable to be salvaged. Prior to admission he was crawling around at home because of his legs with simply not work. He did have a delirium during the hospital course which was managed conservatively and still has subtle confusion. There is probably a component of vascular dementia involved here among other issues. His daughter arrive with him with the discharge packet for [facility].s at this current time he is ready for a pain pill and rest since he is just arrived from a long hospital course at [facility] in [place]. I reviewed all discharge medications and lab evaluations and have reconciled all meds to continue. Subjective/Events-last exam [place] will be removed every other one today Decubitus ulcer managed by Dr Simons We'll work on avoid using Manuel lift and start using sideboard today if ok with Dr Simons Bowels are moving well Eating and drinking well Constantly asks to go home Wants to work on his [employer] business at home Pain was increased since he was behind on his pain meds Review of Systems General: Fatigue Objective Exam Vital Signs Vital Signs Date Time Temp Pulse Resp B/P (MAP) Pulse Ox O2 Delivery O2 Flow Rate FiO2 07/01/18 09:00 Room Air 07/01/18 05:52 98.8 80 18 110/64 (79) 97 Capillary Refill : General Appearance: No Apparent Distress, WD/WN, Chronically ill, Mild Distress HEENT: PERRL/EOMI, Normal ENT Inspection, Pharynx Normal, Moist Mucous Membranes Neck: Full Range of Motion, Normal Inspection, Non Tender, Supple Respiratory: Chest Non Tender, Lungs Clear, Normal Breath Sounds, No Accessory Muscle Use, No Respiratory Distress, Decreased Breath Sounds Cardiovascular: Regular Rate, Rhythm, No Edema, No Gallop, No JVD, No Murmur Gastrointestinal: Normal Bowel Sounds, No Organomegaly, No Pulsatile Mass, Non Tender, Soft Rectal: Deferred Back: Normal Inspection, No CVA Tenderness, No Vertebral Tenderness Extremity: Normal Capillary Refill, Normal Inspection, Normal Range of Motion, Non Tender, No Calf Tenderness, No Pedal Edema, Other (bilateral AKA ) Neurologic/Psychiatric: Alert, Oriented x3, No Motor/Sensory Deficits, Normal Mood/Affect Skin: Normal Color, Warm/Dry, Other (staple line reveals no drainage and no erythema) Lymphatic: No Adenopathy Results/Procedures Lab Patient resulted labs reviewed. Assessment/Plan Assessment and Plan Assess & Plan/Chief Complaint Assessment: Bilateral AKA Delirium resolved CAD Hx of CABG HTN HLP COPD Iron deficiency anemia receiving Venofer infusions 5 doses total Plan: Check labs prn Iron level assessed and treated IS Wound care for decubitus ulcers sacrum is appreciated Dr Thakur consultation for CAD is appreciated Staple removal today every other Venofer infusions to be completed (1) S/P AKA (above knee amputation) bilateral (2) Hx of CABG (3) Delirium (4) Dementia (5) CAD (coronary artery disease) (6) Anemia (7) COPD (chronic obstructive pulmonary disease) (8) Iron deficiency Clinical Quality Measures DVT/VTE Risk/Contraindication: Risk Factor Score Per Nursin RFS Level Per Nursing on Admit: 4+=Very High KARISSA LIMA DO Jul 01, 2018 09:29
--- NOTE | 2018-07-01 10:11 | Physical Therapy Daily Note ---
PT Daily Note-Current Subjective Patient in bed pre tx, agrees to PT, has 7/10 pain in residual limbs. Needs to get lowers dressed and does so with effort but without assist. Appearance Patient in shower with OT post tx. Mental Status Patient Orientation: Person, Place, Situation Transfers Therapy Code Descriptions/Definitions Functional [place] Measure: 0=Not Assessed/NA 4=Minimal Assistance 1=Total Assistance 5=Supervision or Setup 2=Maximal Assistance 6=Modified [place] 3=Moderate Assistance 7=Complete [place] Therapy Quality Codes: 6 Independent with activity with or without an assistive device 5 Patient requires set up or clean up by helper. Patient completes activity by themselves 4 Supervision or touching assist (CGA). [place] provide cues , steadying assist 3 The helper provides less than half the effort to complete the activity 2 The helper provides more than half the effort to complete the activity 1 Dependent. The helper does all the effort to complete an activity 7 Patient refused to complete or attempt activity 9 The patient did not perform the activity before the current illness or injury 88 Not attempted due to Medical conditions or safety concerns Transfers (B, C, W/C) (FIM): 5 Scootin Rollin Supine to/from Sit: 6 Bed to/from Chair: 5 Patient performs a sliding transfer today for the first time (got permission from Dr. Soto). He was able to perform the transfer from bed to wheelchair 4 times with SBA. Wheelchair Training Does the Pt Use a Wheelchair?: Yes Wheelchair (FIM): 6 Distance: 1000' Type of Wheelchair: Motorized Patient was able to maneuver wheelchair in order to hit elevator buttons without assist Exercises UE ex x20 with 6# weight: vertical press, bicep curls, chair pushups 2 sets of 7 , supine hip extension x20, sidelying hip abd x20 each side Treatments bed mobility and transfers, wheelchair mobility, functional strengthening Assessment Current Status: Fair Progress improved transfers PT Short Term Goals Short Term Goals Time Frame: Jul 02, 2018 Transfers (B,C,W/C) (FIM): 4 Wheelchair (FIM): 4 Wheelchair Distance: 600ft Wheelchair Level of Assist: 4 PT Intermediate Goals Intermediate Goals PT Intermediate Goals Time Frame: Jul 16, 2018 Transfers (B,C,W/C) (FIM): 5 Sit to Lying (QC): 6 Lying-Sitting on Side/Bed(QC): 6 Rollin Roll Left to Right (QC): 6 Chair/Xbi-hd-Ueqac Xfer(QC): 4 Car Transfer (QC): 4 Wheelchair (FIM): 6 Distance: 200' Wheelchair Level of Assist: 6 Wheel 50 feet with 2 turns (QC: 6 PT Plan Problem List Problem List: Activity Tolerance, Functional Strength, Safety, Balance, Transfer, Bed Mobility, ROM Treatment/Plan Treatment Plan: Continue Plan of Care Treatment Plan: Bed Mobility, Concurrent Therapy, Education, Functional Activity Dina, Functional Strength, Group Therapy, Safety, Therapeutic Exercise , Transfers Treatment Duration: Jul 16, 2018 Frequency: At least 5 of 7 days/Wk (IRF) Estimated Hrs Per Day: 1.5 hours per day Patient and/or Family Agrees t: Yes Safety Risks/Education Patient Education: Transfer Techniques, Correct Positioning, W/C Management, Safety Issues Teaching Recipient: Patient Teaching Methods: Demonstration, Discussion Response to Teaching: Reinforcement Needed Time/GCodes Time In: 0900 Time Out: 1000 Total Billed Treatment Time: 60 Total Billed Treatment 1 visit EX 15' WCH 15' FA 30' AMAURY GONZALES PT Jul 01, 2018 10:11
[2018-07-01] MEDS: NAPROXEN 250 MG (NAPROSYN) TABLET PO PRN (11:48)
--- NOTE | 2018-07-01 11:58 | Occupational Ther Daily Note ---
OT Current Status-Daily Note Subjective Pt alert, in w/c. Took over care from PT. No c/o pain at this time. Mental Status/Objective Patient Orientation: Person, Place, Time, Situation Therapy Code Descriptions/Definitions Functional [place] Measure: 0=Not Assessed/NA 4=Minimal Assistance 1=Total Assistance 5=Supervision or Setup 2=Maximal Assistance 6=Modified [place] 3=Moderate Assistance 7=Complete [place] Attachments: IV ADL-Treatment Pt agrees to shower. Pt able to transfer from / to [facility] with supervision into shower. Pt then was able to complete hygiene and clothing manipulation on [facility]. Pt then took shower using BS, grabbars and hand held shower. Pt able to complete bathing, rinsing and shower. Pt transferred back to / to retrieve clothing then bed to complete dressing. Pt donned clothing by self. Transferred back into / with supervision. Able to maneuver w/c through doors and hallways by self then positions w/c for transfers. Pt and BELLA discussed transfers to tub transfer bench. Then worked on opening doors in w/c. Therapy Code Descriptions/Definitions Functional [place] Measure: 0=Not Assessed/NA 4=Minimal Assistance 1=Total Assistance 5=Supervision or Setup 2=Maximal Assistance 6=Modified [place] 3=Moderate Assistance 7=Complete [place] Therapy Quality Codes: 6 Independent with activity with or without an assistive device 5 Patient requires set up or clean up by helper. Patient completes activity by themselves 4 Supervision or touching assist (CGA). [place] provide cues , steadying assist 3 The helper provides less than half the effort to complete the activity 2 The helper provides more than half the effort to complete the activity 1 Dependent. The helper does all the effort to complete an activity 7 Patient refused to complete or attempt activity 9 The patient did not perform the activity before the current illness or injury 88 Not attempted due to Medical conditions or safety concerns Grooming (FIM): 6 (Sitting at sink, completes grooming.) Oral Hygiene (QC): 6 Bathing (FIM): 5 Bathing Location: L Arm, R Arm, L Upper Leg, R Upper Leg, L Lower Leg ( including foot) (AKA), R Lower Leg (including foot) (AKA), Chest, Abdomen, Buttocks, Perineal Area Shower/Bathe Self (QC): 5 Upper Body (FIM): 6 Upper Body Dressing (QC): 6 Lower Body Dressing (FIM): 6 Lower Body Dressing (QC): 6 On/Off Footwear (QC): 88 Toileting (FIM): 5 Toileting Hygiene (QC): 5 Transfers (B, C, W/C) (FIM): 5 Toilet/Commode Transfer (FIM): 5 Toilet Transfer (QC): 5 Shower Transfer(FIM): 5 OT Short Term Goals Short Term Goals Time Frame: Jul 02, 2018 Bathing(FIM): 4 Lower Body Dressing(FIM): 3 Toileting(FIM): 4 Transfers (B,C,W/C) (FIM): 4 Additional Short Term Goals: 1-Demonstrate ADL Tasks, 2-Verbalize Understanding , 3-ImproveStrength/Dina 1=Demonstrate adherence to instructed precautions during ADL tasks. 2=Patient will verbalize/demonstrate understanding of assistive devices/ modifications for ADL. 3=Patient will improve strength/tolerance for activity to enable patient to perform ADL's. OT Correction Goals Pipe Welder Goals Time Frame: Jul 16, 2018 Eating (FIM): 6 Eating (QC): 6 Groomin Oral Hygiene (QC): 6 Bathing(FIM): 5 Shower/Bathe Self (QC): 4 Upper Body Dressing(FIM): 6 Upper Body Dressing (QC): 6 Lower Body Dressing(FIM): 5 Lower Body Dressing (QC): 5 On/Off Footwear (QC): 88 Toileting(FIM): 5 Toileting Hygiene (QC): 5 Toilet/Commode Transfer(FIM): 5 Toilet/Commode Transfer (QC): 5 Additional Goals: 1-Demonstrate ADL Tasks, 2-Verbalize Understanding, 3- ImproveStrength/Dina 1=Demonstrate adherence to instructed precautions during ADL tasks. 2=Patient will verbalize/demonstrate understanding of assistive devices/ modifications for ADL. 3=Patient will improve strength/tolerance for activity to enable patient to perform ADL's. OT Education/Plan Problem List/Assessment Pt admitted to ARU following bilateral AKA. Pt to benefit from skilled OT intervention for ADL training, transfers, strengthening, and safety education to increase level of independence and allow safe discharge plan. Discharge Recommendations Plan/Recommendations: Continue POC Treatment Plan/Plan of Care Patient would benefit from OT for education, treatment and training to promote independence in ADL's, mobility, safety and/or upper extremity function for ADL' s. Plan of Care: ADL Retraining, Functional Mobility, Group Exercise/Act as Ind, UE Funct Exercise/Act Treatment Duration: Jul 16, 2018 Frequency: Modified Program (IRF) Estimated Hrs Per Day: 1.5 hours per day Agreement: Yes Rehab Potential: Fair Time/GCodes Start Time: 10:00 Stop Time: 11:30 Total Time Billed (hr/min): 90 Billed Treatment Time 1 visit-ADL 4 (60 min) FA 1 (20 min) EX 1 (10 min) EMMA CASEY Jul 01, 2018 11:58
--- NOTE | 2018-07-01 14:00 | NUR ---
Every other staple removed from each amputation site per physician orders. Left leg originally had 24 grzegorz, 12 removed. Right leg with 28 grzegorz, 13 removed. Right leg site producing serous sanguinous fluid with one area of moist tissue that has not yet developed a scab. Steri strips applied, patient tolerated procedure well, wounds are well approximated.
--- NOTE | 2018-07-01 14:40 | Physical Therapy Daily Note ---
PT Daily Note-Current Subjective Pt reports doing pretty good. Discussed thinking about activities that would be challenging for him since he feels he could do pretty much everything at home except reach high shelves. States he knows he needs to work on upper body and core strengthening and has wts at home. Transfers Therapy Code Descriptions/Definitions Functional [place] Measure: 0=Not Assessed/NA 4=Minimal Assistance 1=Total Assistance 5=Supervision or Setup 2=Maximal Assistance 6=Modified [place] 3=Moderate Assistance 7=Complete [place] Therapy Quality Codes: 6 Independent with activity with or without an assistive device 5 Patient requires set up or clean up by helper. Patient completes activity by themselves 4 Supervision or touching assist (CGA). [place] provide cues , steadying assist 3 The helper provides less than half the effort to complete the activity 2 The helper provides more than half the effort to complete the activity 1 Dependent. The helper does all the effort to complete an activity 7 Patient refused to complete or attempt activity 9 The patient did not perform the activity before the current illness or injury 88 Not attempted due to Medical conditions or safety concerns PT Short Term Goals Short Term Goals Time Frame: Jul 02, 2018 Transfers (B,C,W/C) (FIM): 4 Wheelchair (FIM): 4 Wheelchair Distance: 1000' Wheelchair Level of Assist: 4 PT Fdc Goals Copier And Printer Field Technician Goals PT Fdc Goals Time Frame: Jul 16, 2018 Transfers (B,C,W/C) (FIM): 5 Sit to Lying (QC): 6 Lying-Sitting on Side/Bed(QC): 6 Rollin Roll Left to Right (QC): 6 Chair/Vab-oc-Eloya Xfer(QC): 4 Car Transfer (QC): 4 Wheelchair (FIM): 6 Distance: 200' Wheelchair Level of Assist: 6 Wheel 50 feet with 2 turns (QC: 6 PT Plan Treatment/Plan Treatment Plan: Bed Mobility, Concurrent Therapy, Education, Functional Activity Dina, Functional Strength, Group Therapy, Safety, Therapeutic Exercise , Transfers Treatment Duration: Jul 16, 2018 Frequency: At least 5 of 7 days/Wk (IRF) Estimated Hrs Per Day: 1.5 hours per day Patient and/or Family Agrees t: Yes VERENA PELAYO TECHNICAL SALES SUPPORT SPECIALIST Jul 01, 2018 14:39
--- NOTE | 2018-07-01 14:44 | Physical Therapy Daily Note ---
PT Daily Note-Current Subjective pt reports feeling pretty good, just got 1/2 grzegorz removed from knees. Discussed him thinking about activities that he feels might challenge him. Pt states he knows he would be challenged with retrieving objects from high shelves and needs more strengthening in arms and core. Pain Numeric Pain Scale: 0-No Pain Appearance Pt sitting up in bed awake and alert upon arrival. At end of session, pt requesting to stay sitting up in motorized w/c. Call light , phone and bedside table within reach and all needs met at this time Mental Status Patient Orientation: Normal For Age Transfers Therapy Code Descriptions/Definitions Functional [place] Measure: 0=Not Assessed/NA 4=Minimal Assistance 1=Total Assistance 5=Supervision or Setup 2=Maximal Assistance 6=Modified [place] 3=Moderate Assistance 7=Complete [place] Therapy Quality Codes: 6 Independent with activity with or without an assistive device 5 Patient requires set up or clean up by helper. Patient completes activity by themselves 4 Supervision or touching assist (CGA). [place] provide cues , steadying assist 3 The helper provides less than half the effort to complete the activity 2 The helper provides more than half the effort to complete the activity 1 Dependent. The helper does all the effort to complete an activity 7 Patient refused to complete or attempt activity 9 The patient did not perform the activity before the current illness or injury 88 Not attempted due to Medical conditions or safety concerns Transfers (B, C, W/C) (FIM): 5 Scootin Rollin Supine to/from Sit: 5 Bed to/from Chair: 5 pt demonstrating ability to transfer bed to from motorized w/c with SBA/ supervision. Able to perform without slide board or nancy Gait Training Does the Patient Walk?: No and Walking Goal IS indicated Wheelchair Training Does the Pt Use a Wheelchair?: Yes Wheelchair (FIM): 6 Wheelchair Distance: 3=150 ft Distance: >600 Wheelchair Level of Assist: 6 Type of Wheelchair: Motorized w/c training around obstacles and furniture, through wide and narrow doorways, tight and wide turns, positioning of w/c retrieving objects Exercises Seated Therapy Exercises: Biceps (3#), Shoulder Flex, Shoulder Abd (3#), Reaching activity, Glut set, Tricep (3#) Seated Reps: 10 (including 3# punching ex in all planes, across body, above and beflow waist level) Treatments w/c training for functional mobility, safety with maneuvering Ther ex for strengthening, ROM and balance Assessment Current Status: Good Progress PT Short Term Goals Short Term Goals Time Frame: Jul 02, 2018 Transfers (B,C,W/C) (FIM): 4 Wheelchair (FIM): 4 Wheelchair Distance: 1000' Wheelchair Level of Assist: 4 PT Biology Instructor Goals Detention Goals PT Detention Goals Time Frame: Jul 16, 2018 Transfers (B,C,W/C) (FIM): 5 Sit to Lying (QC): 6 Lying-Sitting on Side/Bed(QC): 6 Rollin Roll Left to Right (QC): 6 Chair/Vac-yt-Aggmj Xfer(QC): 4 Car Transfer (QC): 4 Wheelchair (FIM): 6 Distance: 200' Wheelchair Level of Assist: 6 Wheel 50 feet with 2 turns (QC: 6 PT Plan Treatment/Plan Treatment Plan: Continue Plan of Care Treatment Plan: Bed Mobility, Concurrent Therapy, Education, Functional Activity Dina, Functional Strength, Group Therapy, Safety, Therapeutic Exercise , Transfers Treatment Duration: Jul 16, 2018 Frequency: At least 5 of 7 days/Wk (IRF) Estimated Hrs Per Day: 1.5 hours per day Patient and/or Family Agrees t: Yes Safety Risks/Education Patient Education: Gait Training, Transfer Techniques, Reviewed Precautions, W/ C Management, Safety Issues Teaching Recipient: Patient Teaching Methods: Discussion Response to Teaching: Verbalize Understanding, Return Demonstration Turning motorized w/c off before transferring in and out of it to avoid w/c moving if accidentally bumping controller while maneuvering in and out of it. Inst for HEP sitting on bed and working trunk flex, ext, lateral sidebending and rotation for strengthening and balance Time/GCodes Time In: 1400 Time Out: 1430 Total Billed Treatment Time: 30 Total Billed Treatment 1 visit, [facility] x1 unit, EX x1 unit VERENA PELAYO PTA Jul 01, 2018 14:44
--- NOTE | 2018-07-01 15:30 | NUR ---
TAR KETTLE RUNNER met with patient and EDUARDO Baron in regards to patient's progress and potential need for home equipment. Patient reports bedside commode at home with drop arm capabilities; however, patient does not intend to use bedside Commode at discharge. Per PT, patient completed transfer today without slide board and only required contact-guard assistance. Soha BELLA is hopeful patient can accomplish wiping self prior to discharge. RN continues to diligently work on coccyx wound, once wound healing has progressed patient should be appropriate for discharge home.
[2018-07-01 18:31] VITALS: BP 101/55
[2018-07-01] MEDS: CLOPIDOGREL 75 MG (PLAVIX) TABLET PO SCH (20:42)
[2018-07-01] MEDS: SIMvastatin 20 MG (ZOCOR) TAB PO SCH (20:42)
[2018-07-02] MEDS: HYDROcodone/APAP 5 MG/325 MG (LORTAB) TAB PO PRN ×5 (03:37→20:48)
[2018-07-02] MEDS: meTOprolol TARTRATE 25 MG (LOPRESSOR) TABLET PO SCH ×2 (05:55→16:49)
[2018-07-02] MEDS: inSUlin ASPART (NovoLOG) 1 UNIT/0.01 ML (CHARGE PER UNIT) SC SCH ×4 (05:56→21:31)
[2018-07-02 06:46] VITALS: BP 113/61
[2018-07-02] MEDS: GABAPENTIN 300 MG (NEURONTIN) CAP PO SCH ×3 (08:01→20:44)
[2018-07-02] MEDS: ENOXAPARIN 40 MG/0.4 ML (LOVENOX) SYR SC SCH (08:02)
[2018-07-02] MEDS: ASPIRIN E.C. 81 MG (ECOTRIN) TAB PO SCH (08:02)
[2018-07-02] MEDS: IRON SUCROSE 200 MG/10 ML (VENOFER) VIAL IV SCH (08:02)
[2018-07-02] MEDS: GABAPENTIN 600 MG (NEURONTIN) TAB PO SCH ×3 (08:02→20:44)
--- NOTE | 2018-07-02 09:00 | Occupational Ther Daily Note ---
OT Current Status-Daily Note Subjective Pt alert, sitting up in bed. Pt agrees to therapy. C/o pain, 09/30, nrsg in room to give pain meds. Mental Status/Objective Patient Orientation: Person, Place, Time, Situation Therapy Code Descriptions/Definitions Functional [place] Measure: 0=Not Assessed/NA 4=Minimal Assistance 1=Total Assistance 5=Supervision or Setup 2=Maximal Assistance 6=Modified [place] 3=Moderate Assistance 7=Complete [place] Attachments: IV ADL-Treatment Pt declined shower. Completed sponge bathe at sink. Pt transferred with supervision from bed <-> w/c, w/c <-> toilet (BSC). Pt able to manipulate clothing and cleanse self on BSC/toilet. Pt completed grooming and sponge bath at sink. Pt retrieved clothing using w/c. Pt completed dressing in bed. Nrsg present in room to change dressing and give meds. Pt then transferred from bed to w/c. Therapy Code Descriptions/Definitions Functional [place] Measure: 0=Not Assessed/NA 4=Minimal Assistance 1=Total Assistance 5=Supervision or Setup 2=Maximal Assistance 6=Modified [place] 3=Moderate Assistance 7=Complete [place] Therapy Quality Codes: 6 Independent with activity with or without an assistive device 5 Patient requires set up or clean up by helper. Patient completes activity by themselves 4 Supervision or touching assist (CGA). [place] provide cues , steadying assist 3 The helper provides less than half the effort to complete the activity 2 The helper provides more than half the effort to complete the activity 1 Dependent. The helper does all the effort to complete an activity 7 Patient refused to complete or attempt activity 9 The patient did not perform the activity before the current illness or injury 88 Not attempted due to Medical conditions or safety concerns Grooming (FIM): 6 Oral Hygiene (QC): 6 Upper Body (FIM): 6 Upper Body Dressing (QC): 6 Lower Body Dressing (FIM): 6 Lower Body Dressing (QC): 6 Toileting (FIM): 5 Toileting Hygiene (QC): 4 Transfers (B, C, W/C) (FIM): 5 Toilet/Commode Transfer (FIM): 5 Toilet Transfer (QC): 4 Other Treatment Pt maneuvered w/c through doors and up to table to complete UE strengthening for daily functional tasks. Arm bike 15 min at 35 triplett resistance to increase strength and activity tolerance. Pt then worked on maneuvering power w/c around ARU commons area around chairs and tables without difficulty. After therapy, PT took over care of pt. All needs met. OT Short Term Goals Short Term Goals Time Frame: Jul 02, 2018 Bathing(FIM): 4 Lower Body Dressing(FIM): 3 Toileting(FIM): 4 Transfers (B,C,W/C) (FIM): 4 Additional Short Term Goals: 1-Demonstrate ADL Tasks, 2-Verbalize Understanding , 3-ImproveStrength/Dina 1=Demonstrate adherence to instructed precautions during ADL tasks. 2=Patient will verbalize/demonstrate understanding of assistive devices/ modifications for ADL. 3=Patient will improve strength/tolerance for activity to enable patient to perform ADL's. OT Object Oriented Developer Goals Object Oriented Developer Goals Time Frame: Jul 16, 2018 Eating (FIM): 6 Eating (QC): 6 Groomin Oral Hygiene (QC): 6 Bathing(FIM): 5 Shower/Bathe Self (QC): 4 Upper Body Dressing(FIM): 6 Upper Body Dressing (QC): 6 Lower Body Dressing(FIM): 5 Lower Body Dressing (QC): 5 On/Off Footwear (QC): 88 Toileting(FIM): 5 Toileting Hygiene (QC): 5 Toilet/Commode Transfer(FIM): 5 Toilet/Commode Transfer (QC): 5 Additional Goals: 1-Demonstrate ADL Tasks, 2-Verbalize Understanding, 3- ImproveStrength/Dina 1=Demonstrate adherence to instructed precautions during ADL tasks. 2=Patient will verbalize/demonstrate understanding of assistive devices/ modifications for ADL. 3=Patient will improve strength/tolerance for activity to enable patient to perform ADL's. OT Education/Plan Problem List/Assessment Pt admitted to ARU following bilateral AKA. Pt to benefit from skilled OT intervention for ADL training, transfers, strengthening, and safety education to increase level of independence and allow safe discharge plan. Discharge Recommendations Plan/Recommendations: Continue POC Treatment Plan/Plan of Care Patient would benefit from OT for education, treatment and training to promote independence in ADL's, mobility, safety and/or upper extremity function for ADL' s. Plan of Care: ADL Retraining, Functional Mobility, Group Exercise/Act as Ind, UE Funct Exercise/Act Treatment Duration: Jul 16, 2018 Frequency: Modified Program (IRF) Estimated Hrs Per Day: 1.5 hours per day Agreement: Yes Rehab Potential: Fair Time/GCodes Start Time: 07:15 Stop Time: 08:45 Total Time Billed (hr/min): 90 Billed Treatment Time 1 visit-ADL 5 (70 min) EX 1 (20 min) EMMA CASEY Jul 02, 2018 09:00
--- NOTE | 2018-07-02 09:02 | PM&R Progress Note ---
Subjective HPI/CC On Admission Date Seen by Provider: Jul 02, 2018 Time Seen by Provider: 09:00 CC: Bilateral [id number] amputations 06/18/18 Dr Alvarado [facility] HPI: This is a 68-year-old white male clinic patient of Dr. Lyn and Dr. Sykes who presents to the inpatient rehab facility after uncomplicated above the knee amputations by Dr. Alvarado at [facility] on 06/18/18. Multiple attempts with vascular surgery and other modalities failed the severe peripheral vascular disease that had been progressive and unable to be salvaged. Prior to admission he was crawling around at home because of his legs with simply not work. He did have a delirium during the hospital course which was managed conservatively and still has subtle confusion. There is probably a component of vascular dementia involved here among other issues. His daughter arrive with him with the discharge packet for [facility].s at this current time he is ready for a pain pill and rest since he is just arrived from a long hospital course at [facility] in [place]. I reviewed all discharge medications and lab evaluations and have reconciled all meds to continue. Subjective/Events-last exam Pt ready to go home anytime we allow it. Transferring well. Venofer iron infusion will complete at time of discharge. Daughter will help him at home. Pain is well controlled. Brenden ever other were removed with good results, and will remove the others prior to discharge. Team meeting will collect of all of therapy notes and will evaluate his readiness for discharge home. Review of Systems Musculoskeletal: leg pain Objective Exam Vital Signs Vital Signs Date Time Temp Pulse Resp B/P (MAP) Pulse Ox O2 Delivery O2 Flow Rate FiO2 07/02/18 18:24 98.0 72 18 120/65 (83) 98 Room Air Capillary Refill : General Appearance: No Apparent Distress, WD/WN, Chronically ill, Mild Distress HEENT: PERRL/EOMI, Normal ENT Inspection, Pharynx Normal, Moist Mucous Membranes Neck: Full Range of Motion, Normal Inspection, Non Tender, Supple Respiratory: Chest Non Tender, Lungs Clear, Normal Breath Sounds, No Accessory Muscle Use, No Respiratory Distress, Decreased Breath Sounds Cardiovascular: Regular Rate, Rhythm, No Edema, No Gallop, No JVD, No Murmur Gastrointestinal: Normal Bowel Sounds, No Organomegaly, No Pulsatile Mass, Non Tender, Soft Rectal: Deferred Back: Normal Inspection, No CVA Tenderness, No Vertebral Tenderness Extremity: Normal Capillary Refill, Normal Inspection, Normal Range of Motion, Non Tender, No Calf Tenderness, No Pedal Edema, Other (bilateral AKA ) Neurologic/Psychiatric: Alert, Oriented x3, No Motor/Sensory Deficits, Normal Mood/Affect Skin: Normal Color, Warm/Dry, Other (staple line reveals no drainage and no erythema) Lymphatic: No Adenopathy Results/Procedures Lab Patient resulted labs reviewed. Assessment/Plan Assessment and Plan Assess & Plan/Chief Complaint Assessment: Bilateral AKA Delirium resolved CAD Hx of CABG HTN HLP COPD Iron deficiency anemia receiving Venofer infusions 5 doses total Plan: Check labs prn Iron level assessed and treated IS Wound care for decubitus ulcers sacrum is appreciated Dr Thakur consultation for CAD is appreciated Staple removal yesterday every other one and the rest will be removed tomorrow Venofer infusions to be completed at time of DC (1) S/P AKA (above knee amputation) bilateral (2) Hx of CABG (3) Delirium (4) CAD (coronary artery disease) (5) Anemia (6) COPD (chronic obstructive pulmonary disease) (7) Iron deficiency Clinical Quality Measures DVT/VTE Risk/Contraindication: Risk Factor Score Per Nursin RFS Level Per Nursing on Admit: 4+=Very High KARISSA LIMA DO Jul 02, 2018 09:02
--- NOTE | 2018-07-02 09:43 | Physical Therapy Daily Note ---
PT Daily Note-Current Subjective Patient in power chair pre tx, agrees to PT, has 3-4/10 pain mostly in right leg. Appearance Patient in power chair post tx, he is mod I with wheelchair mobility, states he will perform pressure relief with tilt. Mental Status Patient Orientation: Person, Place, Situation Transfers Therapy Code Descriptions/Definitions Functional [place] Measure: 0=Not Assessed/NA 4=Minimal Assistance 1=Total Assistance 5=Supervision or Setup 2=Maximal Assistance 6=Modified [place] 3=Moderate Assistance 7=Complete [place] Therapy Quality Codes: 6 Independent with activity with or without an assistive device 5 Patient requires set up or clean up by helper. Patient completes activity by themselves 4 Supervision or touching assist (CGA). [place] provide cues , steadying assist 3 The helper provides less than half the effort to complete the activity 2 The helper provides more than half the effort to complete the activity 1 Dependent. The helper does all the effort to complete an activity 7 Patient refused to complete or attempt activity 9 The patient did not perform the activity before the current illness or injury 88 Not attempted due to Medical conditions or safety concerns Transfers (B, C, W/C) (FIM): 5 Scootin Rollin Supine to/from Sit: 6 Bed to/from Chair: 5 Wheelchair Training Does the Pt Use a Wheelchair?: Yes Wheelchair (FIM): 6 Distance: 300' Type of Wheelchair: Motorized Exercises UE exercises x20 with 6# weight (vertical press and bicep curls), supine LTR x10 , sidelying hip ext and abd x20 each side. NuStep Minutes: 10 NuStep Workload: 6 (only UE's) Treatments transfers, wheelchair mobility, functional strengthening Assessment Current Status: Fair Progress Patient has very little movement in low back and bilateral hip flexion contractures. Educated patient on the importance of flexibility and how it will assist him with mobility and transfers. PT Short Term Goals Short Term Goals Time Frame: Jul 02, 2018 Transfers (B,C,W/C) (FIM): 4 Wheelchair (FIM): 4 Wheelchair Distance: >600 Wheelchair Level of Assist: 4 PT Group Home Goals Irrigator Gravity Flow Goals PT Irrigator Gravity Flow Goals Time Frame: Jul 16, 2018 Transfers (B,C,W/C) (FIM): 5 Sit to Lying (QC): 6 Lying-Sitting on Side/Bed(QC): 6 Rollin Roll Left to Right (QC): 6 Chair/Lci-md-Sbnoq Xfer(QC): 4 Car Transfer (QC): 4 Wheelchair (FIM): 6 Distance: 200' Wheelchair Level of Assist: 6 Wheel 50 feet with 2 turns (QC: 6 PT Plan Problem List Problem List: Activity Tolerance, Functional Strength, Safety, Balance, Transfer, Bed Mobility, ROM Treatment/Plan Treatment Plan: Continue Plan of Care Treatment Plan: Bed Mobility, Concurrent Therapy, Education, Functional Activity Dina, Functional Strength, Group Therapy, Safety, Therapeutic Exercise , Transfers Treatment Duration: Jul 16, 2018 Frequency: At least 5 of 7 days/Wk (IRF) Estimated Hrs Per Day: 1.5 hours per day Patient and/or Family Agrees t: Yes Safety Risks/Education Patient Education: Transfer Techniques, Correct Positioning, W/C Management, Safety Issues Teaching Recipient: Patient Teaching Methods: Demonstration, Discussion Response to Teaching: Reinforcement Needed Time/GCodes Time In: 0845 Time Out: 0945 Total Billed Treatment Time: 60 Total Billed Treatment 1 visit [facility] 15' EX 25' FA 20' AMAURY GONZALES PT Jul 02, 2018 09:42
--- NOTE | 2018-07-02 10:30 | NUR ---
IV and Venofer discontinued per providers orders. Tip of catheter intact, no signs or symptoms of phlebitis, patient tolerated well.
--- NOTE | 2018-07-02 12:14 | NUR ---
DASHBOARD DEVELOPER faxed clinical updates to insurance provider for continued stay review. Discharge date will be set tomorrow following Team Conference Meeting. Addendum: 07/02/18 at 1632 by SHIREEN VILLANUEVA SS As patient is progressing with therapy and FIM scores indicate supervision status, insurance provider will likely request discharge soon, DASHBOARD DEVELOPER confirmed with Dr. Soto that GENVEA Ko will be dc'd at discharge.
--- NOTE | 2018-07-02 13:34 | Physical Therapy Daily Note ---
PT Daily Note-Current Subjective Patient in bed pre tx, agrees to PT, has 5/10 pain in legs, more on the right than left. Appearance Patient in power chair post tx. Mental Status Patient Orientation: Person, Place, Situation Transfers Therapy Code Descriptions/Definitions Functional [place] Measure: 0=Not Assessed/NA 4=Minimal Assistance 1=Total Assistance 5=Supervision or Setup 2=Maximal Assistance 6=Modified [place] 3=Moderate Assistance 7=Complete [place] Therapy Quality Codes: 6 Independent with activity with or without an assistive device 5 Patient requires set up or clean up by helper. Patient completes activity by themselves 4 Supervision or touching assist (CGA). [place] provide cues , steadying assist 3 The helper provides less than half the effort to complete the activity 2 The helper provides more than half the effort to complete the activity 1 Dependent. The helper does all the effort to complete an activity 7 Patient refused to complete or attempt activity 9 The patient did not perform the activity before the current illness or injury 88 Not attempted due to Medical conditions or safety concerns Transfers (B, C, W/C) (FIM): 6 Scootin Rollin Supine to/from Sit: 6 Bed to/from Chair: 6 Patient is able to perform a sliding transfer from bed to wheelchair with mod I , is able to adjust arm on wheelchair and puts his own seatbelt on. Wheelchair Training Does the Pt Use a Wheelchair?: Yes Wheelchair (FIM): 6 Distance: 1000' Type of Wheelchair: Manual Patient went up and down elevator, pushing buttons himself, without assist. Exercises UE exercises x20 with 6# (bicep curls, vertical press) Treatments bed mobility, transfers, UE exercises, wheelchair mobility Assessment Current Status: Fair Progress Patient made independent on the floor with transfers and wheelchair mobility, nursing notified. PT Short Term Goals Short Term Goals Time Frame: Jul 02, 2018 Transfers (B,C,W/C) (FIM): 4 Wheelchair (FIM): 4 Wheelchair Distance: 300' Wheelchair Level of Assist: 4 PT Longterm Goals Longterm Goals PT Longterm Goals Time Frame: Jul 16, 2018 Transfers (B,C,W/C) (FIM): 5 Sit to Lying (QC): 6 Lying-Sitting on Side/Bed(QC): 6 Rollin Roll Left to Right (QC): 6 Chair/Gsb-mv-Parfd Xfer(QC): 4 Car Transfer (QC): 4 Wheelchair (FIM): 6 Distance: 200' Wheelchair Level of Assist: 6 Wheel 50 feet with 2 turns (QC: 6 PT Plan Problem List Problem List: Activity Tolerance, Functional Strength, Safety, Balance, Transfer, ROM Treatment/Plan Treatment Plan: Continue Plan of Care Treatment Plan: Bed Mobility, Concurrent Therapy, Education, Functional Activity Dina, Functional Strength, Group Therapy, Safety, Therapeutic Exercise , Transfers Treatment Duration: Jul 16, 2018 Frequency: At least 5 of 7 days/Wk (IRF) Estimated Hrs Per Day: 1.5 hours per day Patient and/or Family Agrees t: Yes Safety Risks/Education Patient Education: Transfer Techniques, Correct Positioning, W/C Management, Safety Issues Teaching Recipient: Patient Teaching Methods: Demonstration, Discussion Response to Teaching: Reinforcement Needed Time/GCodes Time In: 1300 Time Out: 1330 Total Billed Treatment 1 visit [facility] 20' EX 10' AMAURY GONZALES PT Jul 02, 2018 13:34
[2018-07-02 18:24] VITALS: BP 120/65
--- NOTE | 2018-07-02 18:25 | Wound Care Assessment ---
Wound Care Assessment Date Seen by Provider: Jul 02, 2018 Time Seen by Provider: 18:10 Chief Complaint Sacral ulcer. HPI The patient is a 68 year old male, known to me from previous episode of outpatient care, now with a Stage 2 sacral pressure ulcer in a setting of decreased mobility following bilateral AKA for ASPVD. Dressings and off- loading ordered. 07/02/18 -- Interval note: wound is clean and remains superficial. Will change to barrier cream at discharge and follow-up in [facility]. Past Medical History: Admits Diabetes Type II, Admits Heart Disease, Admits Myocardial Infarction, Admits Peripheral Artery Disease Smoking Status: Former Smoker Review of Systems Pulmonary: No Dyspnea Cardiovascular: No: Chest Pain Exam Vital Signs Date Time Temp Pulse Resp B/P (MAP) Pulse Ox O2 Delivery O2 Flow Rate FiO2 07/02/18 09:00 Room Air 07/02/18 06:46 98.0 77 14 113/61 (78) 96 Capillary Refill : General Appearance: no apparent distress HEENT: normal ENT inspection Neck: full range of motion Respiratory: no respiratory distress Back: other (Sacral ulcer clean and pink, superficial.) Results Laboratory Tests 07/01/18 21:27: Glucometer 178H 07/02/18 05:56: Glucometer 125H 07/02/18 10:57: Glucometer 117H 07/02/18 16:44: Glucometer 132H Assessment/Plan/Dx 1. Pressure ulcer, sacrum, Stage 2, with moisture component, present on admission. 2. S/P bilateral AKA, with decreased mobility. 3. Peripheral arterial disease, severe. 4. Diabetes mellitus, Type 2, with ulcer. 5. Coronary artery disease. Plan: Will change to Barrier cream at discharge. LARRY CONTRERAS MD Jul 02, 2018 18:25
[2018-07-02] MEDS: SIMvastatin 20 MG (ZOCOR) TAB PO SCH (20:44)
[2018-07-02] MEDS: CLOPIDOGREL 75 MG (PLAVIX) TABLET PO SCH (20:44)
[2018-07-03] MEDS: HYDROcodone/APAP 5 MG/325 MG (LORTAB) TAB PO PRN ×4 (01:30→17:04)
[2018-07-03 03:42] VITALS: BP 117/63
[2018-07-03] MEDS: meTOprolol TARTRATE 25 MG (LOPRESSOR) TABLET PO SCH ×2 (06:31→17:06)
[2018-07-03] MEDS: inSUlin ASPART (NovoLOG) 1 UNIT/0.01 ML (CHARGE PER UNIT) SC SCH ×3 (06:31→16:00)
--- NOTE | 2018-07-03 07:28 | Occupational Ther Daily Note ---
OT Current Status-Daily Note Subjective Pt alert, in bathroom. Pt agrees to therapy. No c/o pain at this time. Pt wants to go home today. Mental Status/Objective Patient Orientation: Person, Place, Time, Situation Therapy Code Descriptions/Definitions Functional [place] Measure: 0=Not Assessed/NA 4=Minimal Assistance 1=Total Assistance 5=Supervision or Setup 2=Maximal Assistance 6=Modified [place] 3=Moderate Assistance 7=Complete [place] ADL-Treatment Therapy Code Descriptions/Definitions Functional [place] Measure: 0=Not Assessed/NA 4=Minimal Assistance 1=Total Assistance 5=Supervision or Setup 2=Maximal Assistance 6=Modified [place] 3=Moderate Assistance 7=Complete [place] Therapy Quality Codes: 6 Independent with activity with or without an assistive device 5 Patient requires set up or clean up by helper. Patient completes activity by themselves 4 Supervision or touching assist (CGA). [place] provide cues , steadying assist 3 The helper provides less than half the effort to complete the activity 2 The helper provides more than half the effort to complete the activity 1 Dependent. The helper does all the effort to complete an activity 7 Patient refused to complete or attempt activity 9 The patient did not perform the activity before the current illness or injury 88 Not attempted due to Medical conditions or safety concerns Eating (FIM): 7 (Pt able to open packages/containers then use regular utensil.) Eating (QC): 6 Grooming (FIM): 6 (Sitting at sink in w/c, pt able to complete by self.) Oral Hygiene (QC): 6 Bathing (FIM): 6 (Using hand held shower, shower bench and grabbars pt able to complete by self.) Bathing Location: L Arm, R Arm, L Upper Leg, R Upper Leg, L Lower Leg ( including foot) (AKA), R Lower Leg (including foot) (AKA), Chest, Abdomen, Buttocks, Perineal Area Shower/Bathe Self (QC): 6 Upper Body (FIM): 6 (Retreives clothing with w/c then dons/doffs by self.) Upper Body Dressing (QC): 6 Lower Body Dressing (FIM): 6 (Retreives clothing with w/c then dons/doffs by self in bed.) Lower Body Dressing (QC): 6 On/Off Footwear (QC): 88 Toileting (FIM): 6 (Using grabbar, drop-arm BSC and w/c pt able to complete hygiene and clothing manipulation sitting on BSC.) Toileting Hygiene (QC): 6 Transfers (B, C, W/C) (FIM): 6 (Able to transer surface to surface, positions w /c independently and uses upper body to lift torso for transfers.) Toilet/Commode Transfer (FIM): 6 (Using w/c, grabbars and droparm BSC.) Toilet Transfer (QC): 6 Shower Transfer(FIM): 6 (Using tub transfer bench, w/c and grabbars pt able to transfer into/out of shower by self.) After therapy, pt lying in bed. Nrsg to change dressing. Call light/phone in reach. All needs met in room. OT Short Term Goals Short Term Goals Time Frame: Jul 02, 2018 Bathing(FIM): 4 Lower Body Dressing(FIM): 3 Toileting(FIM): 4 Transfers (B,C,W/C) (FIM): 4 Additional Short Term Goals: 1-Demonstrate ADL Tasks, 2-Verbalize Understanding , 3-ImproveStrength/Dina 1=Demonstrate adherence to instructed precautions during ADL tasks. 2=Patient will verbalize/demonstrate understanding of assistive devices/ modifications for ADL. 3=Patient will improve strength/tolerance for activity to enable patient to perform ADL's. OT Residential Goals Residential Goals Time Frame: Jul 16, 2018 Eating (FIM): 6 (met) Eating (QC): 6 (met) Groomin (met) Oral Hygiene (QC): 6 (met) Bathing(FIM): 5 (met) Shower/Bathe Self (QC): 4 (met) Upper Body Dressing(FIM): 6 (met) Upper Body Dressing (QC): 6 (met) Lower Body Dressing(FIM): 5 (met) Lower Body Dressing (QC): 5 (met) On/Off Footwear (QC): 88 Toileting(FIM): 5 (met) Toileting Hygiene (QC): 5 (met) Toilet/Commode Transfer(FIM): 5 (met) Toilet/Commode Transfer (QC): 5 (met) Additional Goals: 1-Demonstrate ADL Tasks, 2-Verbalize Understanding, 3- ImproveStrength/Dina 1=Demonstrate adherence to instructed precautions during ADL tasks. 2=Patient will verbalize/demonstrate understanding of assistive devices/ modifications for ADL. 3=Patient will improve strength/tolerance for activity to enable patient to perform ADL's. OT Education/Plan Problem List/Assessment Pt admitted to ARU following bilateral AKA. Pt to benefit from skilled OT intervention for ADL training, transfers, strengthening, and safety education to increase level of independence and allow safe discharge plan. Discharge Recommendations Plan/Recommendations: Continue POC Treatment Plan/Plan of Care Patient would benefit from OT for education, treatment and training to promote independence in ADL's, mobility, safety and/or upper extremity function for ADL' s. Plan of Care: ADL Retraining, Functional Mobility, Group Exercise/Act as Ind, UE Funct Exercise/Act Treatment Duration: Jul 16, 2018 Frequency: Modified Program (IRF) Estimated Hrs Per Day: 1.5 hours per day Agreement: Yes Rehab Potential: Fair Time/GCodes Start Time: 07:00 Stop Time: 08:00 Total Time Billed (hr/min): 60 Billed Treatment Time 1 visit-ADL 4 (60 min) EMMA CASEY Jul 03, 2018 07:28
[2018-07-03] MEDS: ENOXAPARIN 40 MG/0.4 ML (LOVENOX) SYR SC SCH (07:50)
[2018-07-03] MEDS: GABAPENTIN 600 MG (NEURONTIN) TAB PO SCH ×2 (07:50→12:06)
[2018-07-03] MEDS: ASPIRIN E.C. 81 MG (ECOTRIN) TAB PO SCH (07:50)
[2018-07-03] MEDS: GABAPENTIN 300 MG (NEURONTIN) CAP PO SCH ×2 (07:50→12:05)
--- NOTE | 2018-07-03 09:26 | Physical Therapy Daily Note ---
PT Daily Note-Current Subjective Patient in bed pre tx, agrees to PT, has 3/10 pain in legs. Appearance Patient in wheelchair post tx, he is mod I with WC and transfers. Mental Status Patient Orientation: Person, Place, Situation Transfers Therapy Code Descriptions/Definitions Functional [place] Measure: 0=Not Assessed/NA 4=Minimal Assistance 1=Total Assistance 5=Supervision or Setup 2=Maximal Assistance 6=Modified [place] 3=Moderate Assistance 7=Complete [place] Therapy Quality Codes: 6 Independent with activity with or without an assistive device 5 Patient requires set up or clean up by helper. Patient completes activity by themselves 4 Supervision or touching assist (CGA). [place] provide cues , steadying assist 3 The helper provides less than half the effort to complete the activity 2 The helper provides more than half the effort to complete the activity 1 Dependent. The helper does all the effort to complete an activity 7 Patient refused to complete or attempt activity 9 The patient did not perform the activity before the current illness or injury 88 Not attempted due to Medical conditions or safety concerns Transfers (B, C, W/C) (FIM): 6 Scootin Rollin Roll Left to Right (QC): 6 Supine to/from Sit: 6 Sit to Lying (QC): 6 Chair/Erh-ce-Tqtdi Xfer(QC): 6 Bed to/from Chair: 6 Car Transfer (QC): 6 Patient can perform bed mobility, transfers, car transfers with mod I. Gait Training Does the Patient Walk?: No and Walking Goal NOT indicated Wheelchair Training Does the Pt Use a Wheelchair?: Yes Wheelchair (FIM): 6 Distance: 1000' Wheelchair Level of Assist: 6 Wheel 50 ft with 2 turns (QC): 6 Wheel 150 ft (QC): 6 Type of Wheelchair: Motorized Patient can drive a power chair with mod I. He can go up and down ramps, up and down elevator (pushing buttons by himself), and he was even able to get a soda out of the machine all without any assist. Exercises sidelying hip abd and ext x20 each side, LTR x10, seated limits of stability training side to side and back x10, UE exercises with 6# x20 (bicep curls and vertical press), chair pushup 2 sets of 10) Treatments bed mobility and transfers, wheelchair mobility, functional strengthening Assessment Current Status: Fair Progress much improved mobility, and improving arm strength PT Short Term Goals Short Term Goals Time Frame: Jul 02, 2018 Transfers (B,C,W/C) (FIM): 4 Wheelchair (FIM): 4 Wheelchair Distance: 1000' Wheelchair Level of Assist: 4 PT Preschool Head Teacher Goals Preschool Head Teacher Goals PT Fpc Goals Time Frame: Jul 16, 2018 Transfers (B,C,W/C) (FIM): 5 (met) Sit to Lying (QC): 6 (met) Lying-Sitting on Side/Bed(QC): 6 (met) Rollin (met) Roll Left to Right (QC): 6 (met) Chair/Wvu-yx-Lgkix Xfer(QC): 4 (met) Car Transfer (QC): 4 (met) Wheelchair (FIM): 6 Distance: 200' Wheelchair Level of Assist: 6 (met) Wheel 50 feet with 2 turns (QC: 6 (met) PT Plan Problem List Problem List: Activity Tolerance, Functional Strength, Safety, Balance, Transfer, Bed Mobility, ROM Treatment/Plan Treatment Plan: Continue Plan of Care Treatment Plan: Bed Mobility, Concurrent Therapy, Education, Functional Activity Dina, Functional Strength, Group Therapy, Safety, Therapeutic Exercise , Transfers Treatment Duration: Jul 16, 2018 Frequency: At least 5 of 7 days/Wk (IRF) Estimated Hrs Per Day: 1.5 hours per day Patient and/or Family Agrees t: Yes Safety Risks/Education Patient Education: Transfer Techniques, Correct Positioning, W/C Management, Safety Issues Teaching Recipient: Patient Teaching Methods: Demonstration, Discussion Response to Teaching: Reinforcement Needed Time/GCodes Time In: 0800 Time Out: 0900 Total Billed Treatment Time: 60 Total Billed Treatment 1 visit EX 25' WC 15' FA 20' AMAURY GONZALES PT Jul 03, 2018 09:26
[2018-07-03] MEDS ORDERED: DOCUSATE SODIUM 100 MG (COLACE) CAP PO SCH (10:00)
--- NOTE | 2018-07-03 10:22 | PM&R Progress Note ---
Subjective HPI/CC On Admission Date Seen by Provider: Jul 03, 2018 Time Seen by Provider: 09:50 CC: Bilateral wyghs-tli-fhho amputations 06/18/18 Dr Alvarado [facility] HPI: This is a 68-year-old white male clinic patient of Dr. Lyn and Dr. Sykes who presents to the inpatient rehab facility after uncomplicated above the knee amputations by Dr. Alvarado at [facility] on 06/18/18. Multiple attempts with vascular surgery and other modalities failed the severe peripheral vascular disease that had been progressive and unable to be salvaged. Prior to admission he was crawling around at home because of his legs with simply not work. He did have a delirium during the hospital course which was managed conservatively and still has subtle confusion. There is probably a component of vascular dementia involved here among other issues. His daughter arrive with him with the discharge packet for [facility].s at this current time he is ready for a pain pill and rest since he is just arrived from a long hospital course at [facility] in [place]. I reviewed all discharge medications and lab evaluations and have reconciled all meds to continue. Subjective/Events-last exam Pt ready to go home anytime we allow it. Transferring well. Venofer iron infusion will complete at time of discharge. Daughter will help him at home. Pain is well controlled. Grzegorz will be removed today. Team meeting will collect of all of therapy notes and will evaluate his readiness for discharge home. Review of Systems Musculoskeletal: leg pain Objective Exam Vital Signs Vital Signs Date Time Temp Pulse Resp B/P (MAP) Pulse Ox O2 Delivery O2 Flow Rate FiO2 07/03/18 09:00 Room Air 07/03/18 03:42 97.7 72 18 117/63 (81) 97 Capillary Refill : General Appearance: No Apparent Distress, WD/WN, Chronically ill, Mild Distress HEENT: PERRL/EOMI, Normal ENT Inspection, Pharynx Normal, Moist Mucous Membranes Neck: Full Range of Motion, Normal Inspection, Non Tender, Supple Respiratory: Chest Non Tender, Lungs Clear, Normal Breath Sounds, No Accessory Muscle Use, No Respiratory Distress, Decreased Breath Sounds Cardiovascular: Regular Rate, Rhythm, No Edema, No Gallop, No JVD, No Murmur Gastrointestinal: Normal Bowel Sounds, No Organomegaly, No Pulsatile Mass, Non Tender, Soft Rectal: Deferred Back: Normal Inspection, No CVA Tenderness, No Vertebral Tenderness Extremity: Normal Capillary Refill, Normal Inspection, Normal Range of Motion, Non Tender, No Calf Tenderness, No Pedal Edema, Other (bilateral AKA ) Neurologic/Psychiatric: Alert, Oriented x3, No Motor/Sensory Deficits, Normal Mood/Affect Skin: Normal Color, Warm/Dry, Other (staple line reveals no drainage and no erythema will remove rest of grzegorz) Lymphatic: No Adenopathy Results/Procedures Lab Patient resulted labs reviewed. Assessment/Plan Assessment and Plan Assess & Plan/Chief Complaint Assessment: Bilateral AKA Delirium resolved CAD Hx of CABG HTN HLP COPD Iron deficiency anemia receiving Venofer infusions 5 doses total Plan: Iron level assessed and treated IS Wound care for decubitus ulcers sacrum is appreciated Dr Thakur consultation for CAD is appreciated Staple removal rest of today Venofer infusions to be completed at time of DC (1) S/P AKA (above knee amputation) bilateral (2) Hx of CABG (3) Delirium (4) CAD (coronary artery disease) (5) Anemia (6) COPD (chronic obstructive pulmonary disease) (7) Iron deficiency Clinical Quality Measures DVT/VTE Risk/Contraindication: Risk Factor Score Per Nursin RFS Level Per Nursing on Admit: 4+=Very High KARISSA LIMA DO Jul 03, 2018 10:22
--- NOTE | 2018-07-03 13:35 | Physical Therapy Daily Note ---
PT Daily Note-Current Subjective Pt sitting in W/C after finishing with OT upon arrival. Pt agrees to PT. Mental Status Patient Orientation: Person, Place, Time, Situation Transfers Therapy Code Descriptions/Definitions Functional [place] Measure: 0=Not Assessed/NA 4=Minimal Assistance 1=Total Assistance 5=Supervision or Setup 2=Maximal Assistance 6=Modified [place] 3=Moderate Assistance 7=Complete [place] Therapy Quality Codes: 6 Independent with activity with or without an assistive device 5 Patient requires set up or clean up by helper. Patient completes activity by themselves 4 Supervision or touching assist (CGA). [place] provide cues , steadying assist 3 The helper provides less than half the effort to complete the activity 2 The helper provides more than half the effort to complete the activity 1 Dependent. The helper does all the effort to complete an activity 7 Patient refused to complete or attempt activity 9 The patient did not perform the activity before the current illness or injury 88 Not attempted due to Medical conditions or safety concerns Scootin Wheelchair Training Does the Pt Use a Wheelchair?: Yes Wheelchair Distance: 3=150 ft Distance: 150' Wheelchair Level of Assist: 6 Wheel 50 ft with 2 turns (QC): 6 Wheel 150 ft (QC): 6 Type of Wheelchair: Motorized Exercises NuStep Minutes: 15 NuStep Workload: 6 Treatments Pt transfers from W/C to [facility] and uses for 15m at [facility] 6 for arms only to increase strengthening. Pt transfers back to W/C after Ex. Pt wheels self back to room Independently. Pt has all needs met. Assessment Current Status: Good Progress Pt has improved with strength, independence & safety of tasks especially transfers & mobility. PT Short Term Goals Short Term Goals Time Frame: Jul 02, 2018 Transfers (B,C,W/C) (FIM): 4 Wheelchair (FIM): 4 Wheelchair Distance: 1000' Wheelchair Level of Assist: 4 PT Environmental Health Nurse Goals Environmental Health Nurse Goals PT Care Home Goals Time Frame: Jul 16, 2018 Transfers (B,C,W/C) (FIM): 5 (met) Sit to Lying (QC): 6 (met) Lying-Sitting on Side/Bed(QC): 6 (met) Rollin (met) Roll Left to Right (QC): 6 (met) Chair/Hmx-xn-Elgxc Xfer(QC): 4 (met) Car Transfer (QC): 4 (met) Wheelchair (FIM): 6 Distance: 200' Wheelchair Level of Assist: 6 (met) Wheel 50 feet with 2 turns (QC: 6 (met) PT Plan Problem List Problem List: Activity Tolerance Treatment/Plan Treatment Plan: Continue Plan of Care Treatment Plan: Bed Mobility, Concurrent Therapy, Education, Functional Activity Dina, Functional Strength, Group Therapy, Safety, Therapeutic Exercise , Transfers Treatment Duration: Jul 16, 2018 Frequency: At least 5 of 7 days/Wk (IRF) Estimated Hrs Per Day: 1.5 hours per day Patient and/or Family Agrees t: Yes Safety Risks/Education Patient Education: Transfer Techniques, Correct Positioning, W/C Management, Safety Issues Teaching Recipient: Patient Teaching Methods: Discussion Response to Teaching: Verbalize Understanding Time/GCodes Time In: 1300 Time Out: 1330 Total Billed Treatment Time: 30 Total Billed Treatment 1, FA (10m) & EX (20m) G Codes Necessary: LJ Ashford POLE FRAME CONSTRUCTION WORKER Jul 03, 2018 13:34
--- NOTE | 2018-07-03 13:55 | Cardiology Progress Note ---
Cardiology SOAP Progress Note Subjective: No cardiac complaints. Objective: I&O/Vital Signs 07/03/18 07/03/18 03:42 09:00 Temp 97.7 Pulse 72 Resp 18 B/P (MAP) 117/63 (81) Pulse Ox 97 O2 Delivery Room Air Room Air 07/03/18 00:00 Intake Total 1800 ml Output Total 1500 ml Balance 300 ml Weight (Pounds): 136 Weight (Ounces): 1.0 Weight (Calculated Kilograms): 61.334977 Constitutional: No appears stated age; AAO x 3; No apparent distress, No PERRL , No well-developed, No well-nourished, No other Respiratory: No accessory muscle use, No respiratory distress, No chest tender , No chest expansion is symmetric; chest is bilaterally symmetric; No lungs clear to percussion; lungs clear to auscultation; No crackles, No rhonchi, No rales, No stridor, No wheezing, No pleural rub, No other Cardiovascular: regular rate-rhythm; No irregularly irregular, No extra beats, No parasternal heave is noted, No JVD, No edema, No bradycardia, No tachycardia , No point of maximal impulse, No cardiac thrills are palpable; S1 and S2; No gallop/S3, No gallop/S4, No diastolic murmur, No systolic murmur, No friction rub, No click, No other Gastrointestional: No tender, No soft, No round, No distended, No pulsatile mass, No organomegaly, No guarding, No rebound, No tenderness, No hernia, No mass, No audible bowel sounds, No abnormal bowel sounds, No abdominal bruits, No spleenomegaly, No other Extremities: No normal range of motion, No non-tender, No normal inspection, No pedal edema, No calf tenderness, No normal capillary refill, No pelvis stable , No calf tenderness, No inflammation, No pedal edema, No slow capillary refill , No swelling, No other, No abrasion, No clubbing, No cyanosis, No ecchymosis, No laceration, No no lower extremity edema bilateral, No significant edema, No tenderness, No wound Neurologic/Psychiatric: no motor/sensory deficits, alert, normal mood/affect, oriented x 3 Skin: No normal color, No warm/dry, No cyanosis, No cool, No diaphoresis, No damp, No ecchymosis, No jaundice, No mottled, No pallor, No rash, No tattoos/ piercings, No ulcerations, No rash on exposed areas, No ulcerations on exposed areas, No other Results/Procedures: Labs Laboratory Tests 07/02/18 16:44: Glucometer 132H 07/02/18 21:29: Glucometer 138H 07/03/18 05:25: Glucometer 104 07/03/18 11:25: Glucometer 140H A/P: Assessment/Dx: Admission Diagnosis PVD CAD CHF HTN Plan: Assessment/Plan Peripheral arterial disease, history of bilat foot gangrene. Multiple interventions in the past, had bypass surgery right femoropopliteal and also femorofemoral bypass in October [address] Hutchinson. Underwent multiple angiogram, had aortic stent placed by Dr. Benitez, failed percutaneous intervention of the lower extremity to establish flow, had extensive gangrene. Appeared to be inoperable, readmitted to [facility] and underwent bilateral AKA. Postoperatively he was confused. Currently better, continue on current medications and monitor Coronary artery disease history of CABG done on 04/22/[address] Olmos using DEL ANGEL to LAD, VG to OM1, VG to Acute marginal branch and PDA of RCA, continue with medical therapy Congestive heart failure, chronic compensated left ventricular systolic dysfunction, ischemic cardiomyopathy, ejection fraction 45-50 percent, mild mitral regurgitation, estimated pulmonary artery pressure of 35 mmHg, ischemic cardiomyopathy, continue on current medication and monitor Hypertension, continue on current medications and continue to monitor blood pressure Hyperlipidemia, monitor lipids Diabetes mellitus,management per PCP Tobaccoism, educated on smoking cessation. Mild carotid artery stenosis last checkup was done in July 2014 Thank you for your consultation. Please call me if you have any questions. Bao Reyes MD, FACP, FACC, FSCAI, FHRS, CCDS Interventional Cardiology Cardiac Electrophysiology Vascular Medicine and Endovascular Interventions Clinton REYES MD Jul 03, 2018 13:55
--- NOTE | 2018-07-03 14:15 | NUR ---
ENVIRONMENTAL RESEARCH PROJECT MANAGER met with patient following team conference to review summary and discharge recommendations. Team had recommended discharge on 07/04 as patient is independent with therapy activities and coccyx wound appears to be healing. Upon reviewing recommendation of discharge, patient requests to proceed with discharge today rather than tomorrow. ENVIRONMENTAL RESEARCH PROJECT MANAGER consulted with Dr. Soto in regards to discharge, she is agreeable for discharge today. As patient will need daily wound care recommendations for RN home health services was offered, patient wishes to utilize [facility]; however, patient will continue with weekly outpatient wound care visits with Dr. Simons. ENVIRONMENTAL RESEARCH PROJECT MANAGER sent home health referral to [facility], they are able to admit patient on 07/05. ENVIRONMENTAL RESEARCH PROJECT MANAGER reviewed IMM and patient choice letter, patient expresses no concerns regarding discharge plans. Patient's daughter will provide transport home today at 6 p.m. Please see discharge summary for further information.
[2018-07-03] MEDS ORDERED: ACHD5005 PO ×2 (14:37→14:45)
--- NOTE | 2018-07-03 14:39 | D/C HH Face to Face Order ---
D/C Face to Face Orders Instructions for Patient [facility], Patient Instructions/FollowUp: Dr Lyn in 1 week Physician to follow Patient: Dr Lyn Discharge Diet for Home: Cardiac Diet Patient Problems: Bilateral AKA amputations Sacral decubitus ulcer Goals for Patient: Independent living Decubitus ulcer healing Patient Data-Allergies,Ht & Wt Patient Allergies: Coded Allergies: No Known Drug Allergies (Unverified , 04/19/13) Height (Feet): 5 Height (Inches): 8.00 Weight (Pounds): 136 Weight (Ounces): 1.0 Home Health Need/Face to Face Date of Face to Face: Jul 03, 2018 Clinical Findings: Generalized weakness and fatigue, Instability, Muscle weakness, Non or partial weight bearing, Non-healing wound I have seen Pt ekes-ic-[id number]: Yes Discharged To: Home Diagnosis/Conditions: Independent living Decubitus ulcer healing Patient is Homebound due to: Cathleen fall risk due to instabilty Homebound Status Due to the above stated illness, injury or surgical procedure (medical condition or diagnosis) and associated clinical findings, the patient is homebound because of his/her inability to leave home except with aid of a supportive device and/or person AND leaving the home requires a considerable and taxing effort or is medically contraindicated. Pt req the following assistanc: Wheelchair Home Health Nursing Orders Home Health Services Order: Nursing Services Certify Stmt I certify that this patient is under my care and that I, a nurse practitioner or a physician; a assistant store manager working with me, had a face to face encounter that - meets the physician face to face encounter requirements with this patient as dated. KARISSA LIMA DO Jul 03, 2018 14:39
--- NOTE | 2018-07-03 14:50 | Therapy Team Discharge Summary ---
Therapy Discharge Summary Discharge Recommendations Date of Discharge Therapy D/C Recommendations: Home w/ Family Support, Detention (TCU/NH) Physical Therapy Patient came to rehab following bilateral AKA. Upon evaluation patient was able to perform bed mobility and supine <-> sit with CGA, he could not perform a sliding board transfer or car transfer at this time due to pain from pressure sores. Patient has been performing bed mobility and transfer training, balance and endurance training, functional strengthening, wheelchair mobility training, and education. Patient has made good progress and has met all of his detention goals. Now, patient can perform bed mobility, transfers, car transfers with mod I, can drive a power chair with mod I. He can go up and down ramps, up and down elevator (pushing buttons by himself), and he was even able to get a soda out of the machine all without any assist. Patient is discharging from this facility today and will be discharged from PT at this time. Occupational Therapy Decreased Activ Tolerance, Decreased UE Strength, Dependent Transfers, Impaired I ADL's, Impaired Self-Care Skills PT Senior Living Goals Milk Pickup Truck Driver Goals PT Milk Pickup Truck Driver Goals Time Frame: Jul 16, 2018 Transfers (B,C,W/C) (FIM): 5 (met) Roll Left to Right (QC): 6 (met) Sit to Lying (QC): 6 (met) Lying-Sitting on Side/Bed(QC): 6 (met) Chair/Ozb-kg-Fsamh Xfer(QC): 4 (met) Car Transfer (QC): 4 (met) Wheelchair (FIM): 6 Distance: 200' Wheelchair Level of Assist: 6 (met) Wheel 50 feet with 2 turns (QC: 6 (met) OT Milk Pickup Truck Driver Goals Milk Pickup Truck Driver Goals Time Frame: Jul 16, 2018 Eating (FIM): 6 (met) Eating (QC): 6 (met) Oral Hygiene (QC): 6 (met) Grooming(FIM): 6 (met) Bathing(FIM): 5 (met) Shower/Bathe Self (QC): 4 (met) Upper Body Dressing(FIM): 6 (met) Upper Body Dressing (QC): 6 (met) Lower Body Dressing(FIM): 5 (met) Lower Body Dressing (QC): 5 (met) On/Off Footwear (QC): 88 Toileting(FIM): 5 (met) Toileting Hygiene (QC): 5 (met) Toilet/Commode Transfer(FIM): 5 (met) Toilet/Commode Transfer (QC): 5 (met) Additional Goals: 1-Demonstrate ADL Tasks, 2-Verbalize Understanding, 3- ImproveStrength/Dina 1=Demonstrate adherence to instructed precautions during ADL tasks. 2=Patient will verbalize/demonstrate understanding of assistive devices/ modifications for ADL. 3=Patient will improve strength/tolerance for activity to enable patient to perform ADL's. AMAURY GONZALES PT Jul 03, 2018 14:49
[2018-07-03 18:21] VITALS: BP 108/58
--- NOTE | 2018-07-03 18:51 | Discharge Summary ---
Diagnosis/Chief Complaint Date of Admission Jun 25, 2018 at 14:21 Date of Discharge Jul 03, 2018 at 18:20 Discharge Date: Jul 03, 2018 Discharge Diagnosis Assessment: Bilateral AKA Delirium resolved CAD Hx of CABG HTN HLP COPD Iron deficiency anemia receiving Venofer infusions 5 doses total Sacral decubitus Stage 2 Discharge Summary Discharge Physical Examination Allergies: Coded Allergies: No Known Drug Allergies (Unverified , 04/19/13) Vitals & I&Os Vital Signs Date Time Temp Pulse Resp B/P (MAP) Pulse Ox O2 Delivery O2 Flow Rate FiO2 07/03/18 18:21 75 18 108/58 98 Room Air 07/03/18 03:42 97.7 Hospital Course Was the Problem List Reviewed?: Yes Hospital course: patient had an uncomplicated hospital course after he was admitted to IRF after bilateral AKA's at [facility]. Patient's delirium resolved quickly and was maintained on pain meds and bowel function returned back to normal. Decubitus ulcer was managed by Dr Simons and Butt paste was recommended. Patient was able to operate his motorized wheelchair and [facility] and was deemed stable for DC since his incisions were healed after all grzegorz were removed. nurse was ordered to monitor decubitus ulcer. Labs (last 24 hrs) Laboratory Tests 06/25/18 16:05: Glucometer 138H 06/25/18 21:21: Glucometer 229H 06/26/18 05:13: Glucometer 141H 06/26/18 05:45: White Blood Count 10.2, Red Blood Count 2.92L, Hemoglobin 8.5L, Hematocrit 27L, Mean Corpuscular Volume 94, Mean Corpuscular Hemoglobin 29, Mean Corpuscular Hemoglobin Concent 31L, Red Cell Distribution Width 15.4H, Platelet Count 245, Mean Platelet Volume 10.7H, Neutrophils (%) (Auto) 65, Lymphocytes (%) (Auto) 22 , Monocytes (%) (Auto) 10, Eosinophils (%) (Auto) 3, Basophils (%) (Auto) 0, Neutrophils # (Auto) 6.6, Lymphocytes # (Auto) 2.2, Monocytes # (Auto) 1.0, Eosinophils # (Auto) 0.3, Basophils # (Auto) 0.0, Sodium Level 135, Potassium Level 3.9, Chloride Level 105, Carbon Dioxide Level 24, Anion Gap 6, Blood Urea Nitrogen 8, Creatinine 0.54L, Estimat Glomerular Filtration Rate > 60, BUN/ Creatinine Ratio 15, Glucose Level 135H, Mean Blood Glucose 134H, Hemoglobin A1c 6.3H, Calcium Level 8.4L, Corrected Calcium 9.5, Iron Level 25L, Total Bilirubin 0.3, Aspartate Amino Transf (AST/SGOT) 38H, Alanine Aminotransferase ( ALT/SGPT) 36, Alkaline Phosphatase 76, Total Protein 5.7L, Albumin 2.6L 06/26/18 11:18: Glucometer 204H 06/26/18 15:58: Glucometer 196H 06/26/18 20:55: Glucometer 254H 06/27/18 05:34: Glucometer 139H 06/27/18 11:15: Glucometer 201H 06/27/18 16:11: Glucometer 169H 06/27/18 20:29: Glucometer 247H 06/28/18 04:29: Glucometer 130H 06/28/18 11:11: Glucometer 146H 06/28/18 16:35: Glucometer 238H 06/28/18 20:03: Glucometer 134H 06/29/18 05:15: Glucometer 138H 06/29/18 12:12: Glucometer 238H 06/29/18 16:53: Glucometer 163H 06/29/18 20:44: Glucometer 173H 06/30/18 05:35: Glucometer 114H 06/30/18 11:37: Glucometer 231H 06/30/18 16:27: Glucometer 198H 06/30/18 20:19: Glucometer 159H 07/01/18 06:12: Glucometer 128H 07/01/18 11:18: Glucometer 304H 07/01/18 16:40: Glucometer 183H 07/01/18 21:27: Glucometer 178H 07/02/18 05:56: Glucometer 125H 07/02/18 10:57: Glucometer 117H 07/02/18 16:44: Glucometer 132H 07/02/18 21:29: Glucometer 138H 07/03/18 05:25: Glucometer 104 07/03/18 11:25: Glucometer 140H 07/03/18 17:00: Glucometer 99 [facility] Labs Laboratory Tests 06/25/18 16:05: Glucometer 138 06/25/18 21:21: Glucometer 229 06/26/18 05:13: Glucometer 141 06/26/18 05:45: White Blood Count 10.2, Red Blood Count 2.92, Hemoglobin 8.5, Hematocrit 27, Mean Corpuscular Volume 94, Mean Corpuscular Hemoglobin 29, Mean Corpuscular Hemoglobin Concent 31, Red Cell Distribution Width 15.4, Platelet Count 245, Mean Platelet Volume 10.7, Neutrophils (%) (Auto) 65, Lymphocytes (%) (Auto) 22 , Monocytes (%) (Auto) 10, Eosinophils (%) (Auto) 3, Basophils (%) (Auto) 0, Neutrophils # (Auto) 6.6, Lymphocytes # (Auto) 2.2, Monocytes # (Auto) 1.0, Eosinophils # (Auto) 0.3, Basophils # (Auto) 0.0, Sodium Level 135, Potassium Level 3.9, Chloride Level 105, Carbon Dioxide Level 24, Anion Gap 6, Blood Urea Nitrogen 8, Creatinine 0.54, Estimat Glomerular Filtration Rate > 60, BUN/ Creatinine Ratio 15, Glucose Level 135, Mean Blood Glucose 134, Hemoglobin A1c 6.3, Calcium Level 8.4, Corrected Calcium 9.5, Iron Level 25, Total Bilirubin 0.3, Aspartate Amino Transf (AST/SGOT) 38, Alanine Aminotransferase (ALT/SGPT) 36, Alkaline Phosphatase 76, Total Protein 5.7, Albumin 2.6 06/26/18 11:18: Glucometer 204 06/26/18 15:58: Glucometer 196 06/26/18 20:55: Glucometer 254 06/27/18 05:34: Glucometer 139 06/27/18 11:15: Glucometer 201 06/27/18 16:11: Glucometer 169 06/27/18 20:29: Glucometer 247 06/28/18 04:29: Glucometer 130 06/28/18 11:11: Glucometer 146 06/28/18 16:35: Glucometer 238 06/28/18 20:03: Glucometer 134 06/29/18 05:15: Glucometer 138 06/29/18 12:12: Glucometer 238 06/29/18 16:53: Glucometer 163 06/29/18 20:44: Glucometer 173 06/30/18 05:35: Glucometer 114 06/30/18 11:37: Glucometer 231 06/30/18 16:27: Glucometer 198 06/30/18 20:19: Glucometer 159 07/01/18 06:12: Glucometer 128 07/01/18 11:18: Glucometer 304 07/01/18 16:40: Glucometer 183 07/01/18 21:27: Glucometer 178 07/02/18 05:56: Glucometer 125 07/02/18 10:57: Glucometer 117 07/02/18 16:44: Glucometer 132 07/02/18 21:29: Glucometer 138 07/03/18 05:25: Glucometer 104 07/03/18 11:25: Glucometer 140 07/03/18 17:00: Glucometer 99 Discharge Home Medications: Active Scripts Active Hydrocodone/Acetaminophen 5/325mg Tablet (Acetaminophen/Hydrocodone Bitart) 1 Tab Tab 2 Tab PO Q4H PRN MDD 10 Reported Novolog Flexpen (Insulin Aspart) 300 Units/3 Ml Solution 4 Units SC BID Pravastatin Sodium 40 Mg Tablet 40 Mg PO HS Tylenol Extra Strength (Acetaminophen) 500 Mg Tablet 1,000 Mg PO Q6H PRN Aspirin EC (Aspirin) 81 Mg Tablet.dr 81 Mg PO HS Metoprolol Tartrate 25 Mg Tablet 25 Mg PO HS Clopidogrel (Clopidogrel Bisulfate) 75 Mg Tablet 75 Mg PO HS Gabapentin 300 Mg Capsule 900 Mg PO TID TAKES 3 (300MG) CAPSULES Instructions to patient/family Please see electronic discharge instructions given to patient. Diagnosis/Problems Diagnosis/Problems (1) S/P AKA (above knee amputation) bilateral Status: Acute (2) Hx of CABG (3) Delirium (4) CAD (coronary artery disease) (5) Anemia (6) COPD (chronic obstructive pulmonary disease) (7) Iron deficiency Clinical Quality Measures DVT/VTE Risk/Contraindication: Risk Factor Score Per Nursin RFS Level Per Nursing on Admit: 4+=Very High KARISSA LIMA DO Jul 03, 2018 18:51
--- NOTE | 2018-07-04 11:28 | Occupational Ther Daily Note ---
OT Current Status-Daily Note Subjective LATE ENTRY FOR 07/03/18-Pt alert, lying in bed. Pt agrees to therapy. No c/o pain. Pt wants to go home today. Mental Status/Objective Patient Orientation: Person, Place, Time, Situation Therapy Code Descriptions/Definitions Functional [place] Measure: 0=Not Assessed/NA 4=Minimal Assistance 1=Total Assistance 5=Supervision or Setup 2=Maximal Assistance 6=Modified [place] 3=Moderate Assistance 7=Complete [place] ADL-Treatment Therapy Code Descriptions/Definitions Functional [place] Measure: 0=Not Assessed/NA 4=Minimal Assistance 1=Total Assistance 5=Supervision or Setup 2=Maximal Assistance 6=Modified [place] 3=Moderate Assistance 7=Complete [place] Therapy Quality Codes: 6 Independent with activity with or without an assistive device 5 Patient requires set up or clean up by helper. Patient completes activity by themselves 4 Supervision or touching assist (CGA). [place] provide cues , steadying assist 3 The helper provides less than half the effort to complete the activity 2 The helper provides more than half the effort to complete the activity 1 Dependent. The helper does all the effort to complete an activity 7 Patient refused to complete or attempt activity 9 The patient did not perform the activity before the current illness or injury 88 Not attempted due to Medical conditions or safety concerns Other Treatment Pt able to complete bed mobility mod I and transfers mod I. Pt then completed arm bike at 35 triplett resistance for 20 min to increase strength and activity tolerance for daily functional tasks. After therapy, PT took over care of pt in therapy gym. All needs met in room. OT Short Term Goals Short Term Goals Time Frame: Jul 02, 2018 Bathing(FIM): 4 Lower Body Dressing(FIM): 3 Toileting(FIM): 4 Transfers (B,C,W/C) (FIM): 4 Additional Short Term Goals: 1-Demonstrate ADL Tasks, 2-Verbalize Understanding , 3-ImproveStrength/Dina 1=Demonstrate adherence to instructed precautions during ADL tasks. 2=Patient will verbalize/demonstrate understanding of assistive devices/ modifications for ADL. 3=Patient will improve strength/tolerance for activity to enable patient to perform ADL's. OT Snf Goals Snf Goals Time Frame: Jul 16, 2018 Eating (FIM): 6 (met) Eating (QC): 6 (met) Groomin (met) Oral Hygiene (QC): 6 (met) Bathing(FIM): 5 (met) Shower/Bathe Self (QC): 4 (met) Upper Body Dressing(FIM): 6 (met) Upper Body Dressing (QC): 6 (met) Lower Body Dressing(FIM): 5 (met) Lower Body Dressing (QC): 5 (met) On/Off Footwear (QC): 88 Toileting(FIM): 5 (met) Toileting Hygiene (QC): 5 (met) Toilet/Commode Transfer(FIM): 5 (met) Toilet/Commode Transfer (QC): 5 (met) Additional Goals: 1-Demonstrate ADL Tasks, 2-Verbalize Understanding, 3- ImproveStrength/Dina 1=Demonstrate adherence to instructed precautions during ADL tasks. 2=Patient will verbalize/demonstrate understanding of assistive devices/ modifications for ADL. 3=Patient will improve strength/tolerance for activity to enable patient to perform ADL's. OT Education/Plan Problem List/Assessment Pt admitted to ARU following bilateral AKA. Pt to benefit from skilled OT intervention for ADL training, transfers, strengthening, and safety education to increase level of independence and allow safe discharge plan. Discharge Recommendations Plan/Recommendations: Continue POC Treatment Plan/Plan of Care Patient would benefit from OT for education, treatment and training to promote independence in ADL's, mobility, safety and/or upper extremity function for ADL' s. Plan of Care: ADL Retraining, Functional Mobility, Group Exercise/Act as Ind, UE Funct Exercise/Act Treatment Duration: Jul 16, 2018 Frequency: Modified Program (IRF) Estimated Hrs Per Day: 1.5 hours per day Agreement: Yes Rehab Potential: Fair Time/GCodes Start Time: 12:30 Stop Time: 13:00 Total Time Billed (hr/min): 30 Billed Treatment Time 1 visit-FA 1 (10 min) EX 1 (20 min) EMMA CASEY Jul 04, 2018 11:28
== END 2018-07-03 18:20 | disposition home health service (06) | DRG 560 ==
PROVIDERS: ADMIT Internal Medicine; ATTEND Internal Medicine
DX: Z47.81 Encounter for orthopedic aftercare following surgical amputation (principal); Z89.611 Acquired absence of right leg above knee; Z89.612 Acquired absence of left leg above knee; I70.203 Unspecified atherosclerosis of native arteries of extremities, bilateral legs; L89.152 Pressure ulcer of sacral region, stage 2; F01.50 Vascular dementia, unspecified severity, without behavioral disturbance, psychotic disturbance, mood disturbance, and anxiety; E11.9 Type 2 diabetes mellitus without complications; I11.0 Hypertensive heart disease with heart failure; I50.22 Chronic systolic (congestive) heart failure; I25.10 Atherosclerotic heart disease of native coronary artery without angina pectoris; J44.9 Chronic obstructive pulmonary disease, unspecified; I25.5 Ischemic cardiomyopathy; D50.9 Iron deficiency anemia, unspecified; F32.9 Major depressive disorder, single episode, unspecified; I34.0 Nonrheumatic mitral (valve) insufficiency; R41.0 Disorientation, unspecified; E78.5 Hyperlipidemia, unspecified; M19.90 Unspecified osteoarthritis, unspecified site; Z87.891 Personal history of nicotine dependence; Z95.1 Presence of aortocoronary bypass graft
CPT/HCPCS: 36415; 80053; 82962; 83036; 83540; 85025

== ENCOUNTER → 2018-07-08 | Outpatient (CLI) | payer MEDICARE ==
[~2018-07-08] MED LIST changes: +ACET-2267 PO; +ACET-2429 PO; +ACHD5005 PO; +ENOX40DI13 SQ; +HYDR-3812 PO; +INSU100V SQ; +ONDN4T PO
== END ==
LOC: WOUNDCARE 09:23
PROVIDERS: ATTEND Surgery
DX: L89.152 Pressure ulcer of sacral region, stage 2 (principal); I70.263 Atherosclerosis of native arteries of extremities with gangrene, bilateral legs; Z89.611 Acquired absence of right leg above knee; Z89.612 Acquired absence of left leg above knee
CPT/HCPCS: 99212

== ENCOUNTER → 2018-07-23 | Outpatient (CLI) | payer MEDICARE | LOC: WOUNDCARE 13:05 | PROVIDERS: ATTEND Surgery | DX: L89.152 Pressure ulcer of sacral region, stage 2 (principal); I70.261 Atherosclerosis of native arteries of extremities with gangrene, right leg; I70.262 Atherosclerosis of native arteries of extremities with gangrene, left leg; Z89.612 Acquired absence of left leg above knee; Z89.611 Acquired absence of right leg above knee ==